=== PATIENT | female | born 1970 | race Caucasian/White ===

== ENCOUNTER 2018-12-20 11:46 | Emergency (ER) | payer OTHER ==
[~2018-12-20] VITALS: Ht 160 cm; Wt 134.7 kg
--- OUTSIDE RECORDS SUMMARY | 2018-12-20 11:49 | XMS REPORT | Clinical Summary ---
Author Author [facility] Address Unknown Phone Unavailable Care Team Providers Care [place] Production Supervisor Name Role Phone Sharpless PCP Allergies Comments Active Allergy Reactions Severity Noted Date Difficulty breathing, panic attack Droperidol Shortness Of High 07/21/2018 Breath, Other (See Comments) Penicillins Rash Low 04/27/2017 Medications End Date Status Medication Sig Dispensed Refills Start Date Active omeprazole (PRILOSEC) 20 Take 20 mg by 0 MG capsule mouth daily. Active sertraline (ZOLOFT) 100 Take 100 mg 0 MG tablet by mouth daily. Active gabapentin (NEURONTIN) Take 100 mg 0 100 MG capsule by mouth 3 (three) times daily. Active meloxicam (MOBIC) 15 MG Take 15 mg by 0 tablet mouth daily. Active cyclobenzaprine Take 5 mg by 0 (FLEXERIL) 5 MG tablet mouth 3 (three) times daily as needed for Muscle spasms. Active nebulizer accessories DISP #1 1 each 0 Misc NEBULIZER 9 WITH ADULT MASK AND TUBING. Active ibuprofen (ADVIL,MOTRIN) Take 1 tablet 20 tablet 0 600 MG tablet (600 mg 9 total) by mouth every 6 (six) hours as needed for Pain for up to 20 doses. 11/28/2019 Active albuterol (PROVENTIL) 2.5 Take 3 mLs 75 mL 0 mg /3 mL (0.083 %) (2.5 mg 9 nebulizer solution total) by nebulization every 6 (six) hours as needed for Wheezing. 07/30/2018 Discontinued traMADol (ULTRAM) 50 mg Take 1 tablet 30 tablet 0 tablet (50 mg total) 9 by mouth every 6 (six) hours as needed for up to 10 days. Max Daily Amount: 200 mg 11/28/2018 Discontinued albuterol (PROVENTIL) 2.5 Inhale 2.5 mg 0 mg /3 mL (0.083 %) by mouth via 5 nebulizer solution inhaler as needed . 07/29/2018 Discontinued albuterol HFA (PROVENTIL Inhale 2 0 HFA) 90 mcg/actuation puffs by 5 inhaler mouth via inhaler. 10/21/2018 Discontinued metFORMIN (GLUCOPHAGE-XR) TAKE 1 TABLET 1 500 MG 24 hr tablet BY MOUTH 9 TWICE A DAY04/27/18 08/09/2018 traMADol (ULTRAM) 50 mg Take 2 30 tablet 0 tablet tablets (100 9 mg total) by mouth every 6 (six) hours as needed for Pain for up to 10 days. Max Daily Amount: 400 mg 10/21/2018 Discontinued gabapentin (NEURONTIN) Take 1 90 capsule 11 300 MG capsule capsule (300 9 mg total) by mouth 3 (three) times daily. 10/24/2018 Discontinued albuterol HFA (VENTOLIN Inhale 1 puff 0 HFA) 90 mcg/actuation by mouth via inhaler inhaler every 6 (six) hours as needed for Wheezing. 12/03/2018 azithromycin (ZITHROMAX) Take 1 tablet 6 tablet 0 250 MG tablet (250 mg 9 total) by mouth daily for 5 days Take first 2 tablets together, then 1 every day until finished.. Active Problems Problem Noted Date Lung nodule 07/27/2018 Lung cancer 07/27/2018 Encounters Care Team Description Date Type Specialty Edward Trujillo MD SOB (shortness of breath) (Primary Dx); Acute chest pain; Pleural effusion on right; Morbid obesity (HCC) 11/28/2018 Emergency Emergency Medicine 11/28/2018 Orders Only General Internal Medicine 11/28/2018 Travel Salty Veronica MD UPPER ENDOSCOPY,BIOPSY 11/23/2018 Surgery Gastroenterology Karin Cai CRNA 11/23/2018 Anesthesia Gastroenterology Event Salty Veronica MD 11/23/2018 Hospital Gastroenterology Encounter Ilda Richardson MD Multiple thyroid nodules 11/21/2018 Hospital Radiology Encounter Ilda Richardson MD Multiple thyroid nodules (Primary Dx) 11/14/2018 Outside Orders Central Scheduling Resource, [employer] Preadmit Phone 10/21/2018 Hospital Pre-Admission Testing Encounter Christa Coker MD 1, [facility] [address] Room 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 Hospital Computed Tomography Encounter Christa Coker MD 1, [facility] [address] Room Carcinoid bronchial adenoma, 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 Hospital Ultrasound Encounter Christa Coker MD 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 Outside Orders Central Scheduling Suyapa Lopes MD 08/18/2018 Documentation Christa Coker MD Carcinoid bronchial adenoma, unspecified laterality (HCC) (Primary Dx) 08/16/2018 Outside Orders Central Scheduling Paolo Walls MD 07/27/2018 Anesthesia Event Ulices De Leon MD BRONCHOSCOPY 07/27/2018 Surgery Ulices De Leon MD 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 lung (HCC) 07/27/2018 Hospital Intensive Care - Encounter 07/30/2018 [facility] Phone 07/21/2018 Hospital Pre-Admission Testing Encounter Oleg Desai MD Other chest pain (Primary Dx); Lung mass 07/04/2018 Emergency Emergency Medicine 07/04/2018 Orders Only General Internal Medicine after 12/19/2017 Immunizations Name Dates Previously Given Next Due Influenza Four-QIV Non-PF 07/30/2018 5+ YR Social History Date Tobacco Use Types Packs/Day Years Used Quit: 10/08/2010 Former Smoker 11 Smokeless Tobacco: Never Used Tobacco Cessation: Counseling Given: No Comments: quit 2010 Alcohol Use Drinks/Week oz/Week Comments No Alcohol Habits Answer Date Recorded How often do you have a drink containing alcohol? Never 07/21/2018 How many drinks containing alcohol do you have on Not asked a typical day when you are drinking? How often do you have six or more drinks on one Not asked occasion? Sex Assigned at Date Recorded Not on file Industry Job Start Date Occupation Not on file Not on file Not on file Travel End Travel History Travel Start No recent travel history available. Last Filed Vital Signs Time Taken Vital Sign Reading 11/28/2018 8:16 PM CDT Blood Pressure 146/103 11/28/2018 8:16 PM CDT Pulse 94 11/28/2018 8:16 PM CDT Temperature 36.6 C (97.9 F) 11/28/2018 8:16 PM CDT Respiratory Rate 16 11/28/2018 8:16 PM CDT Oxygen Saturation 100% - Inhaled Oxygen - Concentration 11/28/2018 4:06 PM CDT Weight 134.3 kg (296 lb) 11/28/2018 4:06 PM CDT Height 160 cm (5' 3") 11/28/2018 4:06 PM CDT Body Mass Index 52.43 Plan of Treatment Care Team Description Date Type Specialty Christa Coker MD [address] [facility] [address] [place], [place] [id number] 1, [facility] [address] Room 01/26/2019 Appointment Computed Tomography Procedures Comments Procedure Name Priority Date/Time Associated Diagnosis REPORT OF PROCEDURE - 11/30/2018 ENDOSCOPY SCAN 11:[address] CHEST PE TEST DESIGN STAT 11/28/2018 7:18 PM CDT POCT-LACTIC ACID, VENOUS Routine 11/28/2018 6:46 PM CDT XR CHEST 1 VIEW STAT 11/28/2018 PORTABLE/BEDSIDE 5:34 PM CDT CBC W/PLT COUNT & AUTO STAT 11/28/2018 DIFFERENTIAL 5:24 PM CDT URINALYSIS W/ MICROSCOPIC STAT 11/28/2018 5:24 PM CDT D-DIMER STAT 11/28/2018 5:24 PM CDT TROPONIN I STAT 11/28/2018 5:24 PM CDT CBC W/PLT COUNT & AUTO STAT 11/28/2018 DIFFERENTIAL 5:24 PM CDT BASIC METABOLIC PANEL (7) STAT 11/28/2018 5:24 PM CDT ED ECG INTERPRETATION Routine 11/28/2018 4:55 PM CDT ECG 12-LEAD Routine 11/28/2018 4:03 PM CDT Procedure Note - Interface, External Ris In - 11/28/2018 10:36 PM CDT Ventricula r Rate 107 BPM Atrial Rate 107 BPM P-R Interval 166 ms QRS Duration 96 ms Q-T Interval 340 ms QTC Calculatio n(Bazett) 453 ms P [place] 28 degrees R [place] 7 degrees T [place] 34 degrees Sinus tachycardi a Cannot rule out Anterior infarct , age undetermin ed Abnormal ECG When compared with ECG of 9 23:04, No significan t change was found ECG 12-LEAD STAT 11/28/2018 4:03 PM CDT REPORT OF PROCEDURE - 11/23/2018 ENDOSCOPY URL 12:06 PM CDT REPORT OF PROCEDURE - 11/23/2018 ENDOSCOPY URL 10:34 AM CDT TISSUE EXAM AP Routine 11/23/2018 10:04 AM CDT COLONOSCOPY,POLYPECTOMY 11/23/2018 Abnormal gastrointestinal 10:00 AM CDT PET scan Helicobacter pylori gastritis UPPER ENDOSCOPY,BIOPSY 11/23/2018 Abnormal gastrointestinal 10:00 AM CDT PET scan Helicobacter pylori gastritis US FNA WITH US GUIDANCE Routine 11/21/2018 11:27 AM CDT US FNA WITH US GUIDANCE Routine 11/21/2018 Multiple thyroid nodules 11:27 AM CDT CYTOLOGY AP Routine 11/21/2018 11:16 AM CDT CYTOLOGY AP Routine 11/21/2018 11:[address] ABDOMEN/PELVIS WITH IV Routine 09/26/2018 Carcinoid tumor of lung CONTRAST 12:34 PM CDT U/S, THYROID Routine 09/26/2018 Carcinoid bronchial 12:25 PM CDT adenoma, unspecified laterality (HCC) INTRAOPERATIVE PATH 09/22/2018 REPORT - SCAN 4:20 PM CDT INTRAOPERATIVE PATH 08/15/2018 REPORT - SCAN 11:10 AM CDT RHYTHM STRIP - SCAN 08/02/2018 1:50 PM CDT XR CHEST 1 VIEW Routine 07/30/2018 PORTABLE/BEDSIDE 7:15 AM CDT CBC W/PLT COUNT & AUTO Routine 07/30/2018 DIFFERENTIAL 4:01 AM CDT MAGNESIUM Routine 07/30/2018 4:01 AM CDT BASIC METABOLIC PANEL (7) Routine 07/30/2018 4:01 AM CDT CBC W/PLT COUNT & AUTO Routine 07/30/2018 DIFFERENTIAL 4:01 AM CDT XR CHEST 1 VIEW Routine 07/29/2018 PORTABLE/BEDSIDE 4:31 AM CDT CBC W/PLT COUNT & AUTO Routine 07/29/2018 DIFFERENTIAL 3:56 AM CDT MAGNESIUM Routine 07/29/2018 3:56 AM CDT BASIC METABOLIC PANEL (7) Routine 07/29/2018 3:56 AM CDT CBC W/PLT COUNT & AUTO Routine 07/29/2018 DIFFERENTIAL 3:56 AM CDT TRANSFUSION SERVICE 07/28/2018 REPORT - SCAN 5:53 PM CDT XR CHEST 1 VIEW Routine 07/28/2018 PORTABLE/BEDSIDE 1:32 PM CDT XR CHEST 1 VIEW Routine 07/28/2018 PORTABLE/BEDSIDE 10:31 AM CDT XR CHEST 1 VIEW Routine 07/28/2018 PORTABLE/BEDSIDE 5:21 AM CDT CBC W/PLT COUNT & AUTO Routine 07/28/2018 DIFFERENTIAL 4:04 AM CDT CBC W/PLT COUNT & AUTO Routine 07/28/2018 DIFFERENTIAL 4:04 AM CDT MAGNESIUM Routine 07/28/2018 4:04 AM CDT BASIC METABOLIC PANEL (7) Routine 07/28/2018 4:04 AM CDT ECG 12-LEAD Routine 07/27/2018 11:04 PM CDT Procedure Note - Interface, External Ris In - 07/27/2018 11:09 PM CDT Ventricula r Rate 96 BPM Atrial Rate 96 BPM P-R Interval 188 ms QRS Duration 102 ms Q-T Interval 364 ms QTC Calculatio n(Bazett) 459 ms P [place] 37 degrees R [place] 5 degrees T [place] 27 degrees Normal sinus rhythm Normal ECG When compared with ECG of 10:26, No significan t change was found ECG 12-LEAD Routine 07/27/2018 11:04 PM CDT XR CHEST 1 VIEW STAT 07/27/2018 PORTABLE/BEDSIDE 9:19 PM CDT PT/APTT STAT 07/27/2018 8:49 PM CDT CALCIUM, IONIZED STAT 07/27/2018 8:48 PM CDT MAGNESIUM STAT 07/27/2018 8:48 PM CDT PHOSPHORUS STAT 07/27/2018 8:48 PM CDT BASIC METABOLIC PANEL (7) STAT 07/27/2018 8:48 PM CDT CBC (HEMOGRAM ONLY) STAT 07/27/2018 8:48 PM CDT TISSUE EXAM AP Routine 07/27/2018 4:05 PM CDT HGB/HCT (H&H) - STAT LAB STAT 07/27/2018 3:42 PM CDT GLUCOSE-STAT LAB STAT 07/27/2018 3:42 PM CDT POTASSIUM-STAT LAB STAT 07/27/2018 3:42 PM CDT SODIUM NA-STAT LAB STAT 07/27/2018 3:42 PM CDT BLOOD GAS, ARTERIAL STAT 07/27/2018 3:42 PM CDT CALCIUM, IONIZED STAT 07/27/2018 3:42 PM CDT RRL CRITICAL LABS STAT 07/27/2018 (ABG,NA,K,H&H,GLUCOSE) 3:42 PM CDT ANESTHESIA PERIPHERAL Routine 07/27/2018 BLOCK 3:28 PM CDT PROCEDURE W/ DAVINCI XI 07/27/2018 Lung nodule 12:45 PM CDT Case Notes 3 HOURS Special Needs (DAVINCI XI) ROBOTIC THORACOSCOPY 07/27/2018 Lung nodule (VATS),LOBECTOMY W/ LYMPH 12:45 PM CDT NODE RESECTION Case Notes 3 HOURS Special Needs (DAVINCI XI) BRONCHOSCOPY 07/27/2018 Lung nodule 12:45 PM CDT Case Notes 3 HOURS Special Needs (DAVINCI XI) ABORH, MANUAL STAT 07/27/2018 10:03 AM CDT CBC W/PLT COUNT & AUTO Routine 07/27/2018 DIFFERENTIAL 9:45 AM CDT TYPE AND SCREEN, Routine 07/27/2018 AUTOMATED 9:45 AM CDT PROTHROMBIN TIME/INR Routine 07/27/2018 9:45 AM CDT APTT Routine 07/27/2018 9:45 AM CDT COMPREHENSIVE METABOLIC Routine 07/27/2018 PANEL 9:45 AM CDT CBC W/PLT COUNT & AUTO Routine 07/27/2018 DIFFERENTIAL 9:45 AM CDT POCT , URINE Routine 07/27/2018 9:36 AM CDT REPORT OF PROCEDURE - 07/06/2018 ENDOSCOPY SCAN 12:42 PM SENIOR BENEFITS SPECIALIST CT CHEST PE TEST DESIGN STAT 07/04/2018 5:39 PM SENIOR BENEFITS SPECIALIST URINALYSIS MICROSCOPIC Routine 07/04/2018 1:55 PM SENIOR BENEFITS SPECIALIST URINALYSIS WITH STAT 07/04/2018 MICROSCOPIC IF INDICATED 1:55 PM SENIOR BENEFITS SPECIALIST SCREEN, URINE STAT 07/04/2018 1:55 PM SENIOR BENEFITS SPECIALIST XR CHEST 1 VIEW STAT 07/04/2018 PORTABLE/BEDSIDE 12:23 PM SENIOR BENEFITS SPECIALIST ED ECG INTERPRETATION Routine 07/04/2018 12:16 PM SENIOR BENEFITS SPECIALIST CBC W/PLT COUNT & AUTO STAT 07/04/2018 DIFFERENTIAL 11:33 AM SENIOR BENEFITS SPECIALIST MAGNESIUM STAT 07/04/2018 11:33 AM SENIOR BENEFITS SPECIALIST B-TYPE NATRIURETIC FACTOR STAT 07/04/2018 (BNP) 11:33 AM SENIOR BENEFITS SPECIALIST LIPASE STAT 07/04/2018 11:33 AM SENIOR BENEFITS SPECIALIST TROPONIN I STAT 07/04/2018 11:33 AM SENIOR BENEFITS SPECIALIST COMPREHENSIVE METABOLIC STAT 07/04/2018 PANEL 11:33 AM SENIOR BENEFITS SPECIALIST CBC W/PLT COUNT & AUTO STAT 07/04/2018 DIFFERENTIAL 11:33 AM SENIOR BENEFITS SPECIALIST ECG 12-LEAD Routine 07/04/2018 10:26 AM SENIOR BENEFITS SPECIALIST Procedure Note - Interface, External Ris In - 07/04/2018 4:14 PM SENIOR BENEFITS SPECIALIST Ventricula r Rate 86 BPM Atrial Rate 86 BPM P-R Interval 176 ms QRS Duration 102 ms Q-T Interval 372 ms QTC Calculatio n(Bazett) 445 ms P [place] 29 degrees R [place] 12 degrees T [place] 29 degrees Normal sinus rhythm Cannot rule out Anterior infarct , age undetermin ed Abnormal ECG No previous ECGs available ECG 12-LEAD STAT 07/04/2018 10:26 AM SENIOR BENEFITS SPECIALIST after 12/19/2017 Results * EKG-SCANNED (11/30/2018 11:31 AM CDT) Only the most recent of 2 results within the time period is included. Narrative Performed At * CT chest PE test design (11/28/2018 7:18 PM CDT) Only the most recent of 2 results within the time period is included. Specimen Narrative Performed At FINAL REPORT [facility] CT Chest PE Protocol dated 11/28/2018 Clinical information: Dyspnea, cardiac origin suspected Shortness of breath SHORTNESS OF BREATH CHEST PAIN Technique: This exam was performed according to our departmental dose-optimization program, which includes automated exposure control, adjustment of the mA and/or kV according to patient size and/or use of interactive reconstruction technique. Precontrast axial images were obtained at pulmonary trunk level for the purpose of monitoring subsequent IV contrast. Postcontrast axial images of the chest were obtained from above the arch level to the lower chest at maximum enhancement of pulmonary artery. Delayed axial images of the entire chest were obtained subsequently. Coronal and sagittal reformations of the pulmonary arteries were performed. Comment: Heart is normal in size. Greater vessels are unremarkable. No filling detect is noted in the pulmonary trunk or pulmonary arteries. No adenopathy is noted in the mediastinum or perihilar region. Trachea and mainstem bronchi are patent. Small right pleural effusion is present with the right lower lobe subsegmental atelectasis. The rest of the lungs are clear. Impression: 1. No pulmonary thromboembolism. 2. Small right pleural effusion. Signed: Ilda Peralta MD Report Verified Date/Time:11/28/2018 20:03:42 Reading Location: [address] Consult Reading Room Procedure Note Interface, External Ris In - 11/28/2018 8:05 PM CDT FINAL REPORT CT Chest PE Protocol dated 11/28/2018 Clinical information: Dyspnea, cardiac origin suspected Shortness of breath SHORTNESS OF BREATH CHEST PAIN Technique: This exam was performed according to our departmental dose-optimization program, which includes automated exposure control, adjustment of the mA and/or kV according to patient size and/or use of interactive reconstruction technique. Precontrast axial images were obtained at pulmonary trunk level for the purpose of monitoring subsequent IV contrast. Postcontrast axial images of the chest were obtained from above the arch level to the lower chest at maximum enhancement of pulmonary artery. Delayed axial images of the entire chest were obtained subsequently. Coronal and sagittal reformations of the pulmonary arteries were performed. Comment: Heart is normal in size. Greater vessels are unremarkable. No filling detect is noted in the pulmonary trunk or pulmonary arteries. No adenopathy is noted in the mediastinum or perihilar region. Trachea and mainstem bronchi are patent. Small right pleural effusion is present with the right lower lobe subsegmental atelectasis. The rest of the lungs are clear. Impression: 1. No pulmonary thromboembolism. 2. Small right pleural effusion. Signed: Ilda Peralta MD Report Verified Date/Time: 11/28/2018 20:03:42 Reading Location: [address] Consult Reading Room Performing Organization Address City/State/Zipcode Phone Number [facility] * POC-Lactic Acid, Venous (11/28/2018 6:46 PM CDT) POC-Lactic Acid, Venous 1.0Comment: TESTED AT [facility] 0.9 - 1.7 mmol/L [address] Specimen Blood Performing Organization Address City/[facility] [place] [address] [facility] * XR chest 1 view portable / bedside (11/28/2018 5:34 PM CDT) Only the most recent of 8 results within the time period is included. Specimen Narrative Performed At FINAL REPORT [facility] AP view of the chest dated 11/28/2018 CLINICAL INFORMATION: SHORTNESS OF BREATH CHEST PAIN Comment:Heart is in upper limits of normal in size. Pulmonary vasculature is unremarkable. Lungs are clear. No pulmonary infiltrate or pleural effusion is present. Impression:No active cardiopulmonary disease. Signed: Ilda Peralta MD Report Verified Date/Time:11/28/2018 19:00:15 Reading Location: [address] Consult Reading Room Procedure Note Interface, External Ris In - 11/28/2018 7:02 PM CDT FINAL REPORT AP view of the chest dated 11/28/2018 CLINICAL INFORMATION: SHORTNESS OF BREATH CHEST PAIN Comment: Heart is in upper limits of normal in size. Pulmonary vasculature is unremarkable. Lungs are clear. No pulmonary infiltrate or pleural effusion is present. Impression: No active cardiopulmonary disease. Signed: Ilda Peralta MD Report Verified Date/Time: 11/28/2018 19:00:15 Reading Location: [address] Consult Reading Room Performing Organization Address City/State/Zipcode Phone Number [facility] * CBC with platelet count + automated diff (11/28/2018 5:24 PM CDT) Only the most recent of 6 results within the time period is included. WBC 5.2 3.5 - 10.5 K/L [facility] RBC 4.63 3.93 - 5.22 M/L [facility] Hemoglobin 12.8 11.2 - 15.7 GM/DL [facility] Hematocrit 39.7 34.1 - 44.9 % [facility] MCV 85.7 79.4 - 94.8 fL [facility] MCH 27.6 25.6 - 32.2 pg [facility] MCHC 32.2 32.2 - 35.5 GM/DL [facility] RDW 14.5 (H) 11.7 - 14.4 % [facility] Platelets 200 150 - 450 K/CU MM [facility] MPV 10.2 9.4 - 12.3 fL [facility] nRBC 0 0 - 0 /100 WBC [facility] % Neutros 63 % [facility] % Lymphs 29 % [facility] % Monos 7 % [facility] % Eos 2 % [facility] % Baso 0 % [facility] # Neutros 3.22 1.56 - 6.13 K/L [facility] # Lymphs 1.48 1.18 - 3.74 K/L [facility] # Monos 0.34 0.24 - 0.36 K/L [facility] # Eos 0.08 0.04 - 0.36 K/L [facility] # Baso 0.01 0.01 - 0.08 K/L [facility] Immature 0 0 - 1 % [facility] Granulocytes-Relative [facility] Specimen Blood Performing Organization Address City/[facility]/Zipcode Phone Number [address] [phone] [facility] * Troponin I (11/28/2018 5:24 PM CDT) Only the most recent of 2 results within the time period is included. Troponin I <0.01 0.00 - 0.03 ng/mL [facility] Specimen Blood Narrative Performed At Troponin I (TnI) levels must be interpreted in the context of the presenting [facility] symptoms and the clinical findings. Elevated TnI levels indicate myocardial [facility] damage, but are not specific for ischemic heart disease. Elevated TnI levels are seen in patients with other cardiac conditions (including myocarditis and congestive heart failure), and slight TnI elevations occur in patients with other conditions, including sepsis, renal failure, acidosis, acute neurological disease, and persistent tachyarrhythmia. Performing Organization Address [facility] Phone Number [address] [address] [facility] * Urinalysis w/Microscopic (11/28/2018 5:24 PM CDT) Color, UA Light Yellow [facility] Clarity, UA Hazy [facility] Specific [place], UA 1.007 1.001 - 1.035 [facility] pH, UA 7.0 5.0 - 8.0 [facility] Protein, UA Negative Negative [facility] Glucose, UA Negative Negative [facility] Ketones, UA Negative Negative [facility] Bilirubin, UA Negative Negative [facility] Blood, UA Negative Negative [facility] Nitrite, UA Negative Negative [facility] Leukocytes, UA Trace (A) Negative [facility] Urobilinogen, UA 0.2 0.2 - 1.0 mg/dL [facility] RBC, UA <1 /HPF [facility] WBC, UA 3 /HPF [facility] Bacteria, UA Occasional [facility] Squam Epithel, UA 23 /HPF [facility] Specimen Source Urine, Clean Catch [facility] Specimen Urine Performing Organization Address [facility] [place] [address] [facility] * D-dimer, quantitative (11/28/2018 5:24 PM CDT) D-Dimer, Quant 0.63 (H) <0.50 MG/L FEU [facility] Specimen Blood Narrative Performed At Intended Use: The D-Dimer Assay can be used to aid in the diagnosis of Deep Vein [facility] Thrombosis (DVT) and Pulmonary Embolism Disease (PED). [facility] In patients with low pre-test probability, various studies concerning STA Liatest D-dimer test have reported that with a cutoff value of 0.50 MG/L FEU, the Negative Predictive Value (NPV) regarding the exclusion of thrombosis is within 95-100% range. Performing Organization Address City/[facility] Phone Number [address] [address] [facility] * Basic Metabolic Panel (11/28/2018 5:24 PM CDT) Only the most recent of 5 results within the time period is included. Sodium 140 136 - 145 meq/L [facility] Potassium 4.3Comment: Specimen 3.5 - 5.1 meq/L [facility] moderately hemolyzed [facility] Chloride 107 98 - 107 meq/L [facility] CO2 25 22 - 29 meq/L [facility] BUN 8 7 - 21 mg/dL [facility] Creatinine 0.94Comment: Specimen 0.57 - 1.25 mg/dL [facility] moderately hemolyzed [facility] Glucose 93 70 - 105 mg/dL [facility] Calcium 9.1 8.4 - 10.2 mg/dL [facility] EGFR 64Comment: ESTIMATED GFR IS mL/min/1.73 sq m [facility] NOT ACCURATE CREATININE [facility] CLEARANCE IN PREDICTING GLOMERULAR FILTRATION RATE. ESTIMATED GFR IS NOT APPLICABLE FOR DIALYSIS PATIENTS. Specimen Blood Performing Organization Address City/State/Zipcode Phone Number [facility] [address] [place] [address] [facility] * ECG/EKG Interpretation (11/28/2018 4:55 PM CDT) Only the most recent of 2 results within the time period is included. Narrative Performed At Edawrd Trujillo MD 11/28/2018 10:35 PM ECG/EKG Interpretation Date/Time: 11/28/2018 4:57 PM Performed by: Edward Trujillo MD Authorized by: Edward Trujillo MD The ECG was interpreted by ED physician. The ECG is interpreted as sinus tachycardia. Heart rate is 99 BPM. Patient tolerance: Patient tolerated the procedure well with no immediate complications Comments: Sinus tachycardia on monitor * ECG 12 lead (11/28/2018 4:03 PM CDT) Only the most recent of 3 results within the time period is included. Specimen Narrative Performed At Ventricular Rate 107 BPM [facility] Atrial Rate 107 BPM P-R Interval 166 ms QRS Duration 96 ms Q-T Interval 340 ms QTC Calculation(Bazett) 453 ms P [place] 28 degrees R [place] 7 degrees T [place] 34 degrees Sinus tachycardia Cannot rule out Anterior [email or web address] Jun 2018 Abnormal ECG When compared with ECG of 27-JUL-2018 23:04, No significant change was found Confirmed by MD JENNY, VALDEMAR ([id number]) on 11/29/2018 6:56:13 AM Procedure Note Interface, External Ris In - 11/29/2018 6:56 AM CDT Ventricular Rate 107 BPM Atrial Rate 107 BPM P-R Interval 166 ms QRS Duration 96 ms Q-T Interval 340 ms QTC Calculation(Bazett) 453 ms P [place] 28 degrees R [place] 7 degrees T [place] 34 degrees Sinus tachycardia Cannot rule out Anterior infarct 04 Jul 2018 Abnormal ECG When compared with ECG of 27-JUL-2018 23:04, No significant change was found Confirmed by MD JENNY, VALDEMAR ([id number]) on 11/29/2018 6:56:13 AM Performing Organization Address City/State/Zipcode Phone Number GE MUSE * REPORT OF PROCEDURE - ENDOSCOPY URL (11/23/2018 12:06 PM CDT) Narrative Performed At * REPORT OF PROCEDURE - ENDOSCOPY URL (11/23/2018 10:34 AM CDT) Narrative Performed At * Tissue Exam (11/23/2018 10:04 AM CDT) Only the most recent of 2 results within the time period is included. Case Report Surgical Pathology [facility] Report [facility] Case: [id number] Authorizing Provider:Salty Veronica MDCollected: 11/23/2018 1004 Ordering Location: [facility] Endoscopy Received: 11/23/2018 1127 Services Pathologist: Katia Covarrubias MD Specimens: A) - Biopsy, Gastric, bx r/o H pylori B) - Polyp, Colon - Right/Ascending, polyp taken by frcp C) - Polyp, Colon - Rectum, polyp taken by frcp DIAGNOSIS A. STOMACH, RANDOM BIOPSIES: [facility] - ANTRAL MUCOSA WITH [facility] REACTIVE GASTROPATHY - BODY MUCOSA WITH PROTON PUMP INHIBITOR THERAPY EFFECT - NEGATIVE FOR HELICOBACTER PYLORI ORGANISMS BY WARTHIN STARRY STAIN - NEGATIVE FOR INTESTINAL METAPLASIA, DYSPLASIA, MALIGNANCY B. COLON, RIGHT/ASCENDING POLYP, BIOPSY: - TUBULAR ADENOMA C. RECTUM, POLYP, BIOPSY: - HYPERPLASTIC POLYP Signing Pathologist Direct Phone Line: [phone] CPT Code(s) 37596H4 [facility] [address] [facility] CLINICAL HISTORY Pre and postop diagnosis: [facility] abnormal gastrointestinal PET [facility] scan, Helicobacter pylori gastritis SPECIMEN SOURCE A. Biopsy, gastric, rule out [facility] H. Pylori; B. Polyp, colon - [facility] right/ascending; C. Polyp, colon - rectum GROSS DESCRIPTION A. Received in formalin [facility] labeled with the patient's [facility] name, accession number and "biopsy, gastric" are two irregular howard soft tissue fragments measuring 0.7 cm and 0.4 cm which are submitted in toto in A1. B. Received in formalin labeled with the patient's name, accession number and "polyp, colon - right/ascending" is a 0.4 cm an polyp which is submitted in toto in B1. C. Received in formalin labeled with the patient's name, accession number and "polyp, colon - rectum" are two irregular howard soft tissue fragments each measuring 0.2 cm which are submitted in toto in C1. CG/pl MICROSCOPIC DESCRIPTION Performed. [facility] SPECIAL STUDIES The interpretation of this [facility] case included the use of [facility] immunohistochemistry or special stains. Control Slides Examined: In-house known positive controls were evaluated along with the test tissue. These control slides run alongside of the patients sample show appropriate staining. Internal positive and negative controls when available are evaluated Immunohistochemistry technical testing was performed at [facility], Pathology Laboratory where it was developed and its performance characteristics were determined. It has not been cleared or approved by the U.S. Food and Drug Administration. The FDA has determined that such clearance or approval is not necessary. The test is used for clinical purposes. It should not be regarded as investigational or for research. This laboratory is certified under the Clinical Laboratory Improvement Amendments of 1988 (CLIA-88) as qualified to perform high complexity clinical laboratory testing. Specimen Tissue Tissue - Polyp, Colon - Right/Ascending Tissue - Polyp, Colon - Rectum Performing Organization Address City/State/Zipcode Phone Number [facility] [address] [place] [address] [facility] * US FNA with US guidance (11/21/2018 11:27 AM CDT) Only the most recent of 2 results within the time period is included. Specimen Narrative Performed At FINAL REPORT [facility] History: Multiple thyroid nodules. PROCEDURE: Following informed written consent and limited sonographic examination of the thyroid gland, the patient's cervical region was prepped and draped in the usual sterile manner. 2% lidocaine was given locally for anesthesia. No conscious sedation was administered. Using ultrasound guidance, an anterior approach and 22-gauge needles, a total of three fine needle aspirates were obtained from each of the patient's dominant right and left thyroid nodules described in detail below. All samples were submitted to pathology for evaluation. Overall, the patient tolerated the procedure well without immediate complications and was discharged from the department in stable condition. FINDINGS: Limited sonographic examination of the thyroid gland performed prior to the procedure demonstrates a large 4.2 x 2.1 x 2.4 cm solid nodule in the right thyroid lobe. There is also a 1.7 x 1.2 x 1.4 cm solid nodule in the left thyroid lobe. During the aspirates, the needle tips are noted within each of these lesions. IMPRESSION: 1. Successful uncomplicated ultrasound-guided aspiration of the patient's dominant right and left thyroid nodules as described in detail above. Signed: Kevin Vega MD Report Verified Date/Time:11/21/2018 19:05:24 Reading Location: [address] Body Reading Room Procedure Note Interface, External Ris In - 11/21/2018 7:07 PM CDT FINAL REPORT History: Multiple thyroid nodules. PROCEDURE: Following informed written consent and limited sonographic examination of the thyroid gland, the patient's cervical region was prepped and draped in the usual sterile manner. 2% lidocaine was given locally for anesthesia. No conscious sedation was administered. Using ultrasound guidance, an anterior approach and 22-gauge needles, a total of three fine needle aspirates were obtained from each of the patient's dominant right and left thyroid nodules described in detail below. All samples were submitted to pathology for evaluation. Overall, the patient tolerated the procedure well without immediate complications and was discharged from the department in stable condition. FINDINGS: Limited sonographic examination of the thyroid gland performed prior to the procedure demonstrates a large 4.2 x 2.1 x 2.4 cm solid nodule in the right thyroid lobe. There is also a 1.7 x 1.2 x 1.4 cm solid nodule in the left thyroid lobe. During the aspirates, the needle tips are noted within each of these lesions. IMPRESSION: 1. Successful uncomplicated ultrasound-guided aspiration of the patient's dominant right and left thyroid nodules as described in detail above. Signed: Kevin Vega MD Report Verified Date/Time: 11/21/2018 19:05:24 Reading Location: [facility] P048 Angio Body Reading Room Performing Organization Address City/State/Zipcode Phone Number GE RIS * Cytology (11/21/2018 11:16 AM CDT) Only the most recent of 2 results within the time period is included. Case Report Medical Cytology [facility] Report [facility] Case: [id number] Authorizing Provider:Ilda Richardson, Collected: 11/21/2018 1116 Ordering Location: [facility] Radiology Main Received: 11/21/2018 8183 Pathologist: Santana Preston MD Specimen:Thyroid, Right DIAGNOSIS THYROID GLAND, RIGHT LOBE [facility] NODULE, FNA BY CLINICIAN [facility] (CYTOSPINS AND CELL BLOCK OF ASPIRATE): - SATISFACTORY FOR EVALUATION - DIAGNOSTIC CATEGORY: BENIGN - CONSISTENT WITH BENIGN FOLLICULAR NODULE WITH CYSTIC CHANGES - SEE COMMENT Signing Pathologist Direct Phone Line: [phone] COMMENT Clinical and radiographic [facility] correlation is recommended. [facility] Please also see cytopathology case [id number] CPT Code(s) 70868, 23429 [facility] CLINICAL DATA (4.2 X 2.1 X 2.4 cm) Enlarged [facility] right thyroid nodule [facility] SPECIMEN SOURCE RIGHT LOBE THYROID GLAND [facility] NODULE FNA [facility] GROSS DESCRIPTION 30 mls in cytorich red; 4 [facility] cytospins, cell block [facility] (collodion bag) Collected: [id number] Received: 304209 Gross assessment was [facility] performed at [place], Department of [facility] Pathology, [address] [place] [address], [place] [address], Technical component was [facility] performed at Center, Department of [facility] Pathology, [address] [facility], [place] [address], Professional component [facility] was performed at [place], Department of [facility] Pathology, [address] [place] [address], Specimen Fine Needle Aspirate - Thyroid, Right Narrative Performed At Performing Organization Address City/State/Zipcode Phone Number [facility] [address] [place], [place] [id number] MEDICAL CENTER * CT Abdomen/Pelvis with IV Contrast (09/26/2018 12:34 PM CDT) Specimen Narrative Performed At FINAL REPORT [facility] EXAM: CT Abdomen and Pelvis WITH contrast 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 Coronal and sagittal reformations were obtained. Dose modulation, iterative reconstruction, and/or weight based adjustment of the mA/kV was utilized to reduce the radiation dose to as low as reasonably achievable. Routine protocol was performed. Scan was performed when during portal venous phase. IV CONTRAST: 100 mL of Isovue-300 ORAL CONTRAST: None. COMPLICATIONS: None RADIATION DOSE: Total DLP: 1512.54 mGy*cm Estimated effective dose: (DLP x 0.015 x size factor) mSv CTDIvol has been reviewed. It is below the limits set by the Radiation Protocol Committee (RPC). FINDINGS: LINES and TUBES: None. LOWER THORAX:Small right pleural effusion, new from prior exam. Suture line is seen in the right middle lobe. Enlarged main pulmonary artery measuring 3.6 cm. HEPATOBILIARY:No focal hepatic lesions. No biliary ductal dilation. GALLBLADDER: Surgically absent. SPLEEN: Splenomegaly measuring 14 cm. PANCREAS: No focal masses or ductal dilatation. ADRENALS: No adrenal nodules KIDNEYS/URETERS: Kidneys enhance symmetrically.No hydronephrosis. Hypodense lesion in the right renal superior pole measures 2.2 x 2 cm. No other renal lesions visualized.No stones. GI TRACT: No abnormal distention, wall thickening, or evidence of bowel obstruction. Appendix is normal. PELVIC ORGANS/BLADDER: Unremarkable. LYMPH NODES: No lymphadenopathy. VESSELS: Unremarkable. PERITONEUM / RETROPERITONEUM: No free air or fluid. BONES: Mild T12 vertebral body anterior wedging. Otherwise, unremarkable. SOFT TISSUES: Small fat-containing periumbilical hernia. IMPRESSION: 1.No evidence of metastatic disease in the abdomen/pelvis. 2.No acute inflammatory process in the abdomen/pelvis. 3.Small right pleural effusion. 4.Hypodense right renal superior pole lesion with internal density of greater than simple fluid, could represent a complex hemorrhagic/proteinaceous cyst. Recommend renal ultrasound for further evaluation. 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 Coronal and sagittal reformations were obtained. Dose modulation, iterative reconstruction, and/or weight based adjustment of the mA/kV was utilized to reduce the radiation dose to as low as reasonably achievable. Routine protocol was performed. Scan was performed when during portal venous phase. IV CONTRAST: 100 mL of Isovue-300 ORAL CONTRAST: None. COMPLICATIONS: None RADIATION DOSE: Total DLP: 1512.54 mGy*cm Estimated effective dose: (DLP x 0.015 x size factor) mSv CTDIvol has been reviewed. It is below the limits set by the Radiation Protocol Committee (RPC). FINDINGS: LINES and TUBES: None. LOWER THORAX: Small right pleural effusion, new from prior exam. Suture line is seen in the right middle lobe. Enlarged main pulmonary artery measuring 3.6 cm. HEPATOBILIARY: No focal hepatic lesions. No biliary ductal dilation. GALLBLADDER: Surgically absent. SPLEEN: Splenomegaly measuring 14 cm. PANCREAS: No focal masses or ductal dilatation. ADRENALS: No adrenal nodules KIDNEYS/URETERS: Kidneys enhance symmetrically. No hydronephrosis. Hypodense lesion in the right renal superior pole measures 2.2 x 2 cm. No other renal lesions visualized. No stones. GI TRACT: No abnormal distention, wall thickening, or evidence of bowel obstruction. Appendix is normal. PELVIC ORGANS/BLADDER: Unremarkable. LYMPH NODES: No lymphadenopathy. VESSELS: Unremarkable. PERITONEUM / RETROPERITONEUM: No free air or fluid. BONES: Mild T12 vertebral body anterior wedging. Otherwise, unremarkable. SOFT TISSUES: Small fat-containing periumbilical hernia. IMPRESSION: 1.No evidence of metastatic disease in the abdomen/pelvis. 2.No acute inflammatory process in the abdomen/pelvis. 3.Small right pleural effusion. 4.Hypodense right renal superior pole lesion with internal density of greater than simple fluid, could represent a complex hemorrhagic/proteinaceous cyst. Recommend renal ultrasound for further evaluation. Signed: Jeremy Garcia MD Report Verified Date/Time: 09/28/2018 11:05:53 Reading Location: [facility] Reading Room [address] [place] [address] Performing Organization Address City/State/Zipcode Phone Number [facility] * US Thyroid (09/26/2018 12:25 PM CDT) Specimen Narrative Performed At FINAL REPORT [facility] EXAM: Thyroid Ultrasound INDICATION:C7A.090 COMPARISON: None TECHNIQUE: Transverse and sagittal images were obtained of the thyroid gland. FINDINGS: Thyroid gland: Size: Right lobe: 4.6 x 2.5 x 2.9 cm, Normalin size Left lobe: 5.1 x 1.7 x 2 cm, Normalin size Isthmus: 0.5 cm, Normal in size Appearance: Heterogeneous echotexture without increased vascularity Masses/Nodules: Right lobe: 3.9 x 2.1 x 2.2 cm solid (2 pts) nodule in the interpolar region with smooth margin (0 pts), naikm-asyj-obhy (0 pts), isoechoic (1 pt), and no calcifications (0 pts).TR3c (>2.5 cm), Mildly Suspicious: FNA. Left lobe: 2.1 x 1.2 x 1.6 cm almost completely solid (2 pts) nodule in the superior pole with smooth margin (0 pts), ymrkl-mfqc-yait (0 pts), hypoechoic (2 pts), and no calcifications (0 pts). TR4c (>1.5 cm), Moderately Suspicious: FNA. Parathyroid: No focal parathyroid masses. IMPRESSION: Right and left thyroid nodules, both meet the criteria for fine-needle aspiration. TI-RADS Lexicon: TR1, Benign: No FNA TR2, Not Suspicious: No FNA. TR3a (<1.5 cm): No follow-up. TR3b (1.5-2.5 cm), Mildly Suspicious: Follow at 1, 3, 5 years. TR3c (>2.5 cm), Mildly Suspicious: FNA. TR4a (<1.0 cm): No follow-up. TR4b (1.0-1.5 cm), Moderately Suspicious: Follow at 1, 2, 3, 5 years. TR4c (>1.5 cm), Moderately Suspicious: FNA. TR5a (<0.5 cm): No follow-up. TR5b (0.5-1.0 cm), Highly Suspicious: Follow at 1, 2, 3, 4, 5 years. TR5c (>1.0 cm), Highly Suspicious: FNA. *Rebiopsy if new suspicious features *No recommendation at this time for significant interval growth. Nodule Characteristics: *Benign features: cystic, hyperechoic, comet-tail artifact, complete halo *Minor suspicious features: solid, hypoechoic, other calcifications *Major suspicious features: microcalcifications, marked hypoechoic (less than strap muscle), suspicious lymph nodes, taller than wide, lobulated or ill-defined margins. Literature: ACR Thyroid Imaging, Reporting and Data System (TI-RADS): White Paper of the ACR TI-RADS Committee. J Am Juan Diego Radiol 2017. Signed: Jeremy Garcia MD Report Verified Date/Time:09/28/2018 10:46:57 Reading Location: [facility] Reading Room [address] [place] [address] Procedure Note Interface, External Ris In - 09/28/2018 10:49 AM CDT FINAL REPORT EXAM: Thyroid Ultrasound INDICATION: C7A.090 COMPARISON: None TECHNIQUE: Transverse and sagittal images were obtained of the thyroid gland. FINDINGS: Thyroid gland: Size: Right lobe: 4.6 x 2.5 x 2.9 cm, Normal in size Left lobe: 5.1 x 1.7 x 2 cm, Normal in size Isthmus: 0.5 cm, Normal in size Appearance: Heterogeneous echotexture without increased vascularity Masses/Nodules: Right lobe: 3.9 x 2.1 x 2.2 cm solid (2 pts) nodule in the interpolar region with smooth margin (0 pts), ftaqu-deno-bsax (0 pts), isoechoic (1 pt), and no calcifications (0 pts). TR3c (>2.5 cm), Mildly Suspicious: FNA. Left lobe: 2.1 x 1.2 x 1.6 cm almost completely solid (2 pts) nodule in the superior pole with smooth margin (0 pts), yeweh-pafy-nwyi (0 pts), hypoechoic (2 pts), and no calcifications (0 pts). TR4c (>1.5 cm), Moderately Suspicious: FNA. Parathyroid: No focal parathyroid masses. IMPRESSION: Right and left thyroid nodules, both meet the criteria for fine-needle aspiration. TI-RADS Lexicon: TR1, Benign: No FNA TR2, Not Suspicious: No FNA. TR3a (<1.5 cm): No follow-up. TR3b (1.5-2.5 cm), Mildly Suspicious: Follow at 1, 3, 5 years. TR3c (>2.5 cm), Mildly Suspicious: FNA. TR4a (<1.0 cm): No follow-up. TR4b (1.0-1.5 cm), Moderately Suspicious: Follow at 1, 2, 3, 5 years. TR4c (>1.5 cm), Moderately Suspicious: FNA. TR5a (<0.5 cm): No follow-up. TR5b (0.5-1.0 cm), Highly Suspicious: Follow at 1, 2, 3, 4, 5 years. TR5c (>1.0 cm), Highly Suspicious: FNA. *Rebiopsy if new suspicious features *No recommendation at this time for significant interval growth. Nodule Characteristics: *Benign features: cystic, hyperechoic, comet-tail artifact, complete halo *Minor suspicious features: solid, hypoechoic, other calcifications *Major suspicious features: microcalcifications, marked hypoechoic (less than strap muscle), suspicious lymph nodes, taller than wide, lobulated or ill-defined margins. Literature: ACR Thyroid Imaging, Reporting and Data System (TI-RADS): White Paper of the ACR TI-RADS Committee. J Am Juan Diego Radiol 2017. Signed: Jeremy Garcia MD Report Verified Date/Time: 09/28/2018 10:46:57 Reading Location: [facility] Reading Room [address] [place] [address] Performing Organization Address City/State/Zipcode Phone Number [facility] * INTRAOPERATIVE PATH REPORT - SCAN (09/22/2018 4:20 PM CDT) Only the most recent of 2 results within the time period is included. Narrative Performed At * RHYTHM STRIP - SCAN (08/02/2018 1:50 PM CDT) Narrative Performed At * Magnesium (07/30/2018 4:01 AM CDT) Only the most recent of 5 results within the time period is included. Magnesium 2.0 1.6 - 2.6 mg/dL [facility] Specimen Blood Performing Organization Address City/[facility]/Zipcode Phone Number [facility] [address] [place] [address] MEDICAL CENTER * TRANSFUSION SERVICE REPORT - SCAN (07/28/2018 5:53 PM CDT) Narrative Performed At * PT/aPTT (07/27/2018 8:49 PM CDT) Protime 12.7 11.7 - 14.7 seconds [facility] INR 0.9 <=5.9 [facility] PTT 24.1 22.5 - 36.0 seconds [facility] Specimen Blood Narrative Performed At RECOMMENDED COUMADIN/WARFARIN INR THERAPY RANGES [facility] STANDARD DOSE: 2.0 - 3.0 Includes: PROPHYLAXIS for venous thrombosis, [facility] systemic embolization; TREATMENT for venous thrombosis and/or pulmonary embolus. HIGH RISK: Target INR is 2.5-3.5 for patients with mechanical heart valves. Performing Organization Address City/State/Zipcode Phone Number [facility] [address] [place] [address] [facility] * Calcium, Ionized (07/27/2018 8:48 PM CDT) Only the most recent of 2 results within the time period is included. Calcium, Ion 1.17 1.12 - 1.27 mmol/L [facility] pH, Blood 7.23 [facility] Specimen Blood Performing Organization Address City/[facility] Phone Number [facility] [address] [place] [address] [phone] [place] [address] * CBC (Hemogram only) (07/27/2018 8:48 PM CDT) WBC 15.2 (H) 3.5 - 10.5 K/L [facility] RBC 5.02 3.93 - 5.22 M/L [facility] Hemoglobin 14.3 11.2 - 15.7 GM/DL [facility] Hematocrit 45.2 (H) 34.1 - 44.9 % [facility] MCV 90.0 79.4 - 94.8 fL [facility] MCH 28.5 25.6 - 32.2 pg [facility] MCHC 31.6 (L) 32.2 - 35.5 GM/DL [facility] RDW 14.7 (H) 11.7 - 14.4 % [facility] Platelets 225 150 - 450 K/CU MM [facility] MPV 9.6 9.4 - 12.3 fL [facility] nRBC 0 0 - 0 /100 WBC [facility] Specimen Blood Performing Organization Address City/State/Zipcode Phone Number [facility] [phone] [place] [address] * Phosphorus (07/27/2018 8:48 PM CDT) Phosphorus 4.4 2.3 - 4.7 mg/dL [facility] Specimen Blood Performing Organization Address City/[facility] Phone Number [address] * Potassium-Stat Lab (07/27/2018 3:42 PM CDT) Potassium 4.0 3.6 - 5.5 meq/L [facility] Specimen Blood, Arterial Performing Organization Address [facility] Phone Number [address] * Sodium Na-Stat Lab (07/27/2018 3:42 PM CDT) Sodium 139 135 - 148 meq/L [facility] Specimen Blood, Arterial Performing Organization Address City/[facility] Phone Number [address] * Glucose-Stat Lab (07/27/2018 3:42 PM CDT) Glucose 104 70 - 110 mg/dL [facility] Specimen Blood, Arterial Performing Organization Address City/[facility] Phone Number [address] * HGB/HCT (H&H)-Stat Lab (07/27/2018 3:42 PM CDT) Hemoglobin 14.2 12.0 - 15.0 g/dL [facility] Hematocrit 42.0 36.0 - 45.0 % [facility] Specimen Blood, Arterial Performing Organization Address [facility] Phone Number [address] * Blood gas, arterial (07/27/2018 3:42 PM CDT) pH, Arterial 7.37 7.35 - 7.45 [facility] pCO2, Arterial 48 (H) 35 - 45 mmHg [facility] pO2, Arterial 74 (L) 80 - 90 mmHg [facility] O2 Sat, Arterial 94.9 (L) 96.0 - 97.0 % [facility] HCO3, Arterial 27 21 - 29 mmol/L [facility] Base Excess, Arterial 1.3 -2.0 - 3.0 mmol/L [facility] Patient Temperature 36.4 C [facility] FIO2 100.0 % [facility] Specimen Blood, Arterial Performing Organization Address City/State/Zipcode Phone Number [facility] [address] [place] [address] [facility] * ANESTHESIA PERIPHERAL BLOCK (07/27/2018 3:28 PM CDT) Narrative Performed At Paolo Walls MD 07/27/20183:30 PM RIGHT serratus anterior plane block Patient location during procedure: OR Start time: 07/27/2018 3:15 PM End time: 07/27/2018 3:20 PM Procedure Indication: post-op pain management Preanesthetic Checklist Completed: patient identified, pre-op evaluation, timeout performed, IV checked, risks and benefits discussed, monitors and equipment checked, anesthesia consent given, prep site dry prior to draping and maximum sterile barriers were used: cap, mask, sterile gown, sterile gloves, and large sterile sheet Staffing Anesthesiologist: Paolo Walls MD Other anesthesia staff: Kyle Villegas AA Performed: personally Prep Prep: chlorhexidine gluconate and isopropyl alcohol Procedures: sterile gloves, surgical mask, surgical hat and sterile technique and prep Peripheral Nerve Block Patient position: left lateral decubitus (right side up) Patient monitoring: EKG, HR, BP and SpO2 Laterality: right Anesthesia block type: Serratus anterior plane. Injection technique: single-shot ultrasound guided - in plane, prescan was completed prior to procedure and needle tip was visualized throughout the entire procedure ultrasound image not saved Block Dose: ropivicaine and single-shot Infiltration strength: 0.5 % Dose: 30 mL Needle Needle type: short-bevel Needle gauge: 21 G Needle length: Other (110 mm) Insertion depth: 5 cm Needle Localization:US guided Hydrodissection? yes Assessment Injection assessment: incremental injection and negative aspiration for heme LOC: Anesthetized supplemental oxygen used.no evidence of intravascular injection and no heart rate changeno paresthesia patient had no immediate complications and patient tolerated the procedure well Procedure Note Paolo Walls MD - 07/27/2018 3:28 PM CDT RIGHT serratus anterior plane block Patient location during procedure: OR Start time: 07/27/2018 3:15 PM End time: 07/27/2018 3:20 PM Procedure Indication: post-op pain management Preanesthetic Checklist Completed: patient identified, pre-op evaluation, timeout performed, IV checked, risks and benefits discussed, monitors and equipment checked, anesthesia consent given, prep site dry prior to draping and maximum sterile barriers were used: cap, mask, sterile gown, sterile gloves, and large sterile sheet Staffing Anesthesiologist: Paolo Walls MD Other anesthesia staff: Kyle Villegas AA Performed: personally Prep Prep: chlorhexidine gluconate and isopropyl alcohol Procedures: sterile gloves, surgical mask, surgical hat and sterile technique and prep Peripheral Nerve Block Patient position: left lateral decubitus (right side up) Patient monitoring: EKG, HR, BP and SpO2 Laterality: right Anesthesia block type: Serratus anterior plane. Injection technique: single-shot ultrasound guided - in plane, prescan was completed prior to procedure and needle tip was visualized throughout the entire procedure ultrasound image not saved Block Dose: ropivicaine and single-shot Infiltration strength: 0.5 % Dose: 30 mL Needle Needle type: short-bevel Needle gauge: 21 G Needle length: Other (110 mm) Insertion depth: 5 cm Needle Localization: US guided Hydrodissection? yes Assessment Injection assessment: incremental injection and negative aspiration for heme LOC: Anesthetized supplemental oxygen used.no evidence of intravascular injection and no heart rate changeno paresthesia patient had no immediate complications and patient tolerated the procedure well * ABORH, manual (07/27/2018 10:03 AM CDT) ABO Grouping O [facility] Rh Factor POS [facility] Specimen Blood Performing Organization Address [facility] Phone Number [address] * Type and screen, automated (07/27/2018 9:45 AM CDT) ABO/RH AUTOMATED (BEAKER) O POSITIVE [facility] Ab Scrn NEGATIVE [facility] Specimen Blood Performing Organization Address [facility] Phone Number [address] * aPTT (07/27/2018 9:45 AM CDT) PTT 29.3 22.5 - 36.0 seconds [facility] Specimen Blood Performing Organization Address City/[facility] Phone Number [address] * Prothrombin time/INR (07/27/2018 9:45 AM CDT) Protime 13.3 11.7 - 14.7 seconds [facility] INR 1.0 <=5.9 [facility] Specimen Blood Narrative Performed At RECOMMENDED COUMADIN/WARFARIN INR THERAPY RANGES [facility] STANDARD DOSE: 2.0 - 3.0 Includes: PROPHYLAXIS for venous thrombosis, [facility] systemic embolization; TREATMENT for venous thrombosis and/or pulmonary embolus. HIGH RISK: Target INR is 2.5-3.5 for patients with mechanical heart valves. Performing Organization Address [facility] Phone Number [address] * Comprehensive metabolic panel (07/27/2018 9:45 AM CDT) Only the most recent of 2 results within the time period is included. Protein, Total 7.0 6.0 - 8.3 gm/dL [facility] Albumin 4.2 3.5 - 5.0 g/dL [facility] Alkaline Phosphatase 87 40 - 150 U/L [facility] Total Bilirubin 0.5 0.2 - 1.2 mg/dL [facility] Sodium 141 136 - 145 meq/L [facility] Potassium 4.0 3.5 - 5.1 meq/L [facility] Chloride 107 98 - 107 meq/L [facility] CO2 25 22 - 29 meq/L [facility] BUN 11 7 - 21 mg/dL [facility] Creatinine 0.79 0.57 - 1.25 mg/dL [facility] Glucose 93 70 - 105 mg/dL [facility] Calcium 9.9 8.4 - 10.2 mg/dL [facility] AST 18 5 - 34 U/L [facility] ALT 25 6 - 55 U/L [facility] EGFR Comment: INSUFFICIENT CLINICAL mL/min/1.73 sq m [facility] DATA TO CALCULATE ESTIMATED [facility] GFR. Specimen Blood Performing Organization Address City/State/Zipcode Phone Number [facility] [address] [place] [address] MED[facility] CENTER * POCT , urine (07/27/2018 9:36 AM CDT) Test Urine, POC Negative Control line present?, Yes POC Background clear?, POC Yes UPT [place] Lot #, POC [id number] [facility] [place] Expiration 11-07-2019 Date, POC Specimen * Urinalysis Microscopic Only (07/04/2018 1:55 PM SENIOR BENEFITS SPECIALIST) RBC, UA 1 /HPF [facility] WBC, UA 4 /HPF [facility] Bacteria, UA Occasional [facility] Mucus Rare [facility] Squam Epithel, UA 6 /HPF [facility] Hyaline Casts, UA 1 /LPF [facility] Crystals, Urine Rare [facility] Specimen Urine Performing Organization Address City/[facility]/Zipcode Phone Number [facility] [phone] * Urinalysis with Microscopic If Indicated (07/04/2018 1:55 PM SENIOR BENEFITS SPECIALIST) Color, UA Yellow [facility] Clarity, UA Clear [facility] Specific [place], UA 1.015 1.001 - 1.035 [facility] pH, UA 6.5 5.0 - 8.0 [facility] Protein, UA Negative Negative [facility] Glucose, UA Negative Negative [facility] Ketones, UA Negative Negative [facility] Bilirubin, UA Negative Negative [facility] Blood, UA Negative Negative [facility] Nitrite, UA Negative Negative [facility] Leukocytes, UA Moderate (A) Negative [facility] Urobilinogen, UA 2.0 (H) 0.2 - 1.0 mg/dL [facility] Specimen Source [facility] Specimen Urine Performing Organization Address City/[facility]/Zipcode Phone Number [facility] [address] [place] [address] [facility] * Screen, urine (07/04/2018 1:55 PM SENIOR BENEFITS SPECIALIST) Preg Test, Ur Negative [facility] Specimen Urine Performing Organization Address City/State/Zipcode Phone Number [facility] [address] [place] [address] [facility] * B-type Natriuretic Factor (BNP) (07/04/2018 11:33 AM SENIOR BENEFITS SPECIALIST) BNP <10 0 - 100 pg/mL [facility] Specimen Blood Performing Organization Address City/State/Zipcode Phone Number [facility] [address] [place] [phone] [facility] * Lipase (07/04/2018 11:33 AM SENIOR BENEFITS SPECIALIST) Lipase 11 8 - 78 U/L [facility] Specimen Blood Performing Organization Address City/[facility]/Zipcode Phone Number [facility] [address] [place] [address] [facility] after 12/19/2017 Insurance Payer Benefit Subscriber ID Type Phone Address Plan / Group MEDICAID - MEDICAID MGD [facility] xxxxxxxxx Medicaid CARE COMM STAR Contracted PLAN Advance Directives For more information, please contact: [address] [address] Date Inactivated Comments Code Status Date Activated 07/30/2018 3:55 PM Full Code 07/27/2018 9:22 AM This code status was determined by: Patient
--- OUTSIDE RECORDS SUMMARY | 2018-12-20 11:49 | XMS REPORT | Clinical Summary ---
Author Author [facility] Organization [place] [facility] Address Unknown Phone Unavailable Care Team Providers Care Datastage Developer Name Role Phone Asked, No Pcp PCP Unavailable Allergies Comments Active Allergy Reactions Severity Noted Date Droperidol Other (See 12/15/2016 Comments) Penicillins Hives 12/15/2016 Medications End Date Status Medication Sig Dispensed Refills Start Date Active lithium 150 MG capsule Take 150 mg 0 by mouth 2 (two) times a day with meals. Active sertraline (ZOLOFT) 100 Take 200 mg 0 MG tablet by mouth daily. Active bupropion HCl (WELLBUTRIN Take by 0 ORAL) mouth. 12/23/2017 clindamycin (CLEOCIN HCL) Take 1 30 capsule 0 300 MG capsule capsule (300 8 mg total) by mouth 3 (three) times a day for 10 days. 12/19/2017 traMADol (ULTRAM) 50 mg Take 1 tablet 24 tablet 0 tablet (50 mg total) 8 by mouth every 6 (six) hours as needed for moderate pain for up to 6 days. Active Problems Not on file Social History Date Tobacco Use Types Packs/Day Years Used Former Smoker Smokeless Tobacco: Never Used Alcohol Use Drinks/Week oz/Week Comments No Sex Assigned at Date Recorded Not on file Industry Job Start Date Occupation Not on file Not on file Not on file Travel End Travel History Travel Start No recent travel history available. Last Filed Vital Signs Not on file Plan of Treatment Health Maintenance Due Date Last Done Comments INFLUENZA VACCINE 12/08/2018 Results Not on fileafter 12/19/2017 Insurance Type Payer Benefit Subscriber ID Effective Phone Address Plan / Dates Group O [facility] MEDICAID [facility] xxxxxxxxx [id number] COMM STAR+ resent EARLENE Advance Directives Patient has advance care planning documents on file. For more information, jose a miller contact: Mele Conley [address] [place] [address]
--- OUTSIDE RECORDS SUMMARY | 2018-12-20 11:49 | XMS REPORT | Clinical Summary ---
Author Author [facility] Organization [facility] Address Unknown Phone Unavailable Care Team Providers Care Jail Manager Name Role Phone PCP Unavailable Allergies Comments Active Allergy Reactions Severity Noted Date Penicillin G Itching 10/22/2009 Medications End Date Status Medication Sig Dispensed Refills Start Date Active sodium chloride (OCEAN) Administer 2 15 mL 1 0.65 % nasal Sprays in 0 sprayIndications: each nostrils Allergic rhinitis, cause as needed for unspecified Congestion. Active esomeprazole (NEXIUM) 40 Take 40 mg by 0 mg delayed release mouth every capsule morning (before breakfast). Active hydrochlorothiazide Take 25 mg by 0 (HYDRODIURIL) 25 mg mouth daily. tablet Active lamoTRIgine (LAMICTAL) Take 1 tablet 30 tablet 2 100 mg tabletIndications: by mouth 2 Bipolar 2 disorder daily. Active doxepin (SINEQUAN) 10 mg Take 1 30 capsule 2 capsuleIndications: capsule by 2 Bipolar 2 disorder mouth every evening. Active citalopram (CELEXA) 20 mg Take 1 tablet 90 tablet 2 tabletIndications: by mouth 2 Bipolar 2 disorder daily. 90 day supply. Active aripiprazole (ABILIFY) 5 Take 1 tablet 30 tablet 2 mg tabletIndications: by mouth 2 Bipolar 2 disorder daily. Active albuterol (PROVENTIL) 2.5 Inhale 3 mL 75 mL 0 mg /3 mL (0.083 %) by mouth 5 nebulizer every 6 hours solutionIndications: as needed for Cough Wheezing. Active albuterol (VENTOLIN Inhale 2 1 Month 0 HFA,PROVENTIL HFA,PROAIR Puffs by Supply 5 HFA) 90 mcg/actuation mouth 4 times inhalerIndications: Cough daily as needed for Wheezing. Active traMADol (ULTRAM) 50 mg Take 1 tablet 30 tablet 0 tabletIndications: Gum by mouth 6 abscess, Pain, dental, every 6 hours Facial swelling as needed for Pain. Active traMADol (ULTRAM) 50 mg Take 1 tablet 20 tablet 0 tabletIndications: by mouth 8 Toothache every 6 hours as needed for Pain. Active ibuprofen (MOTRIN) 600 mg Take 1 tablet 30 tablet 0 tabletIndications: Chest by mouth 8 pain on breathing every 8 hours as needed for Pain. Active famotidine (PEPCID) 40 mg Take 1 tablet 10 tablet 0 tabletIndications: by mouth 9 Epigastric abdominal pain daily. 08/30/2018 ondansetron (ZOFRAN) 4 mg Take 1 tablet 10 tablet 0 tabletIndications: Nausea by mouth 9 and vomiting, every 8 hours intractability of as needed for vomiting not specified, up to 7 days unspecified vomiting type for Nausea. 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 Pap/Pelvic(18-65 q 2 yr): 04/17 Mary (50+ yearly): Occult Blood (50+ yearly): Cholest (20+ q 5 years):01/17 Td (adult 11+):2007 ppd: Pneumovax adult: Fluzone: Smoker 01/07/2010 Status post cholecystectomy 01/07/2010 Overview: 2009 Dysphagia 01/07/2010 Syphilis 01/07/2010 Overview: tx in past Anxiety state, unspecified 01/07/2010 PTSD (post-traumatic stress disorder) 01/07/2010 Bipolar d/o NOS 01/07/2010 Overview: Pt self report from hx tx mhmra Incisional hernia 01/07/2010 Sleep apnea 01/07/2010 Suicidal ideation Other specified persistent mood disorders Cluster B personality disorder Bipolar 1 disorder Encounters Care Team Description Date Type Specialty RowanSmith arboleda DO Pandya, Michael, MD Nausea and vomiting, intractability of vomiting not specified, unspecified vomiting type (Primary Dx); Epigastric abdominal pain; Temporal headache 08/22/2018 Emergency Emergency Medicine - 08/23/2018 08/22/2018 Travel after 12/19/2017 Immunizations Name Administration Dates Next Due Albuterol 0.083% (3ml) 12/31/2014 PPV 23 Pneumococcal 12/31/2014 (Deferred: Patient Refused - will Polysaccaride return when not ill for vaccine) Family History Medical History Relation Name Comments Diabetes Father Hypertension Father Arthritis Mother Cancer Mother ` Pulmonary Mother Cancer Paternal Grandfather Diabetes Paternal Grandmother Relation Name Status Comments Father Maternal Grandfather Maternal Grandmother Mother Paternal Grandfather Paternal Grandmother Social History Date Tobacco Use Types Packs/Day Years Used Former Smoker Cigarettes 0.5 5 Smokeless Tobacco: Former Quit: 05/08/2010 User Drinks/Week oz/Week Comments Alcohol Use No Sex Assigned at Date Recorded Not on file Industry Job Start Date Occupation Not on file Not on file Not on file Travel End Travel History Travel Start No recent travel history available. Last Filed Vital Signs Reading Time Taken Comments Vital Sign 125/80 08/23/2018 7:00 AM CDT Blood Pressure 93 08/23/2018 7:00 AM CDT Pulse 37.2 C (99 F) 08/23/2018 7:00 AM CDT Temperature 20 08/23/2018 7:00 AM CDT Respiratory Rate 100% 08/23/2018 7:00 AM CDT Oxygen Saturation - - Inhaled Oxygen Concentration 133.6 kg (294 lb 8 oz) 08/22/2018 3:05 PM CDT Weight - - Height 53.86 09/10/2015 8:42 AM CDT Body Mass Index Plan of Treatment Health Maintenance Due Date Last Done Comments Cervical Cancer Scrn (3 1992 Yrs) Breast Cancer Scrn 2011 (Yearly) IMM Influenza Seasonal 02/07/2019Feb to July (>/=19 yrs) Procedures Comments Procedure Name Priority Date/Time Associated Diagnosis CT CHEST PE PROTOCOL STAT 08/23/2018 Nausea and vomiting, 4:54 AM CDT intractability of vomiting not specified, unspecified vomiting type CT HEAD W/O CONTRAST STAT 08/23/2018 Nausea and vomiting, 4:45 AM CDT intractability of vomiting not specified, unspecified vomiting type TROPONIN I POC Routine 08/23/2018 1:42 AM CDT D-DIMER STAT 08/23/2018 1:[address] ABDOMEN AND PELVIS STAT 08/22/2018 Nausea and vomiting, CONTRAST 11:06 PM CDT intractability of vomiting not specified, unspecified vomiting type Epigastric abdominal pain URINALYSIS STAT 08/22/2018 9:40 PM CDT LIPASE STAT 08/22/2018 7:46 PM CDT LIVER PROFILE STAT 08/22/2018 7:46 PM CDT POCT URINE DIPSTICK - STAT 08/22/2018 5:11 PM CDT XRAY CHEST 2 VIEWS STAT 08/22/2018 Nausea and vomiting, 4:52 PM CDT intractability of vomiting not specified, unspecified vomiting type VBG POC Routine 08/22/2018 4:36 PM CDT BMP POC Routine 08/22/2018 4:35 PM CDT CBC/DIFF STAT 08/22/2018 4:34 PM CDT 12 LEAD EKG Routine 08/22/2018 3:11 PM CDT after 12/19/2017 Results * CT CHEST PE PROTOCOL (08/23/2018 4:54 AM CDT) Specimen Impressions Performed At IMPRESSION: [facility] 1.No pulmonary embolus seen up to the segmental levels. 2.Mild pulmonary interstitial edema with loculated small right pleural effusion and trace pericardial effusion. 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 This [facility] radiology report is a preliminary resident dictation until finalized by an attending.Changes to this preliminary report may occur in an additional preliminary or finalized version. Dictated By: Chris Rubio DO, 08/23/2018 5:00 AM I have reviewed the study and agree with the findings in this report. Signed By: Maximilinao August MD, 08/23/2018 5:18 AM Narrative Performed At EXAM: CTA CHEST WITH CONTRAST SMS DATE: 08/23/2018 4:56 AM INDICATION: PE suspected, intermediate prob, positive D-dimer. Nausea and vomiting, intractability of vomiting not specified, unspecified vomiting type COMPARISON: Most recent chest x-ray and CT abdomen and pelvis from 08/22/2018. TECHNIQUE: Volumetric CT of the chest is acquired during pulmonary arterial phase following intravenous administration of contrast. Axial, sagittal, coronal, and oblique MIP reconstructions are created at the acquisition workstation. IV contrast: 100 mL of Omnipaque 350. DLP: 543 mGy-cm FINDINGS: The examination is limited by body habitus streak artifact. Lines and tubes: None. Lower neck: Unremarkable. Axilla: Clear. Airway: Patent. Lungs and pleura:Small loculated right pleural effusion with mild diffuse groundglass opacity in bilateral lung and associated interlobular septal thickening. Post surgical changes from right middle lobe resection. No left pleural effusion or pneumothorax. Mediastinum, espinoza and intrathoracic lymph nodes: Normal. Heart, pericardium and great vessels: Pulmonary emboli: None up to segmental levels. Pulmonary trunk: 2.9 cm. Ascending aorta: 3.4 cm. Heart: Normal. No right heart strain. Pericardium: Trace pericardial effusion. Upper abdomen: Postcholecystectomy. Otherwise unremarkable. Please to the CT abdomen and pelvis scan from 08/22/2018 for findings under the diaphragm. Bones: No acute abnormality. Again seen degenerative disc disease at T11-T12. Soft tissues: Few foci of gas again seen along the right lateral subcutaneous tissues of the lower chest, likely related to recent procedure. Procedure Note Interface, Rad/Mammog In - 08/23/2018 5:23 AM CDT EXAM: CTA CHEST WITH CONTRAST DATE: 08/23/2018 4:56 AM INDICATION: PE suspected, intermediate prob, positive D-dimer. Nausea and vomiting, intractability of vomiting not specified, unspecified vomiting type COMPARISON: Most recent chest x-ray and CT abdomen and pelvis from 08/22/2018. TECHNIQUE: Volumetric CT of the chest is acquired during pulmonary arterial phase following intravenous administration of contrast. Axial, sagittal, coronal, and oblique MIP reconstructions are created at the acquisition workstation. IV contrast: 100 mL of Omnipaque 350. DLP: 543 mGy-cm FINDINGS: The examination is limited by body habitus streak artifact. Lines and tubes: None. Lower neck: Unremarkable. Axilla: Clear. Airway: Patent. Lungs and pleura: Small loculated right pleural effusion with mild diffuse groundglass opacity in bilateral lung and associated interlobular septal thickening. Post surgical changes from right middle lobe resection. No left pleural effusion or pneumothorax. Mediastinum, espinoza and intrathoracic lymph nodes: Normal. Heart, pericardium and great vessels: Pulmonary emboli: None up to segmental levels. Pulmonary trunk: 2.9 cm. Ascending aorta: 3.4 cm. Heart: Normal. No right heart strain. Pericardium: Trace pericardial effusion. Upper abdomen: Postcholecystectomy. Otherwise unremarkable. Please to the CT abdomen and pelvis scan from 08/22/2018 for findings under the diaphragm. Bones: No acute abnormality. Again seen degenerative disc disease at T11-T12. Soft tissues: Few foci of gas again seen along the right lateral subcutaneous tissues of the lower chest, likely related to recent procedure. IMPRESSION IMPRESSION: 1. No pulmonary embolus seen up to the segmental levels. 2. Mild pulmonary interstitial edema with loculated small right pleural effusion and trace pericardial effusion. 3. Postsurgical changes from right middle lobe resection. This [facility] radiology report is a preliminary resident dictation until finalized by an attending. Changes to this preliminary report may occur in an additional preliminary or finalized version. Dictated By: Chris Rubio DO, 08/23/2018 5:00 AM I have reviewed the study and agree with the findings in this report. Signed By: Maximiliano August MD, 08/23/2018 5:18 AM Performing Organization Address City/State/Zipcode Phone Number SMS * CT HEAD W/O CONTRAST (08/23/2018 4:45 AM CDT) Specimen Impressions Performed At IMPRESSION: [facility] No acute intracranial abnormality. This [facility] radiology report is a preliminary resident dictation until finalized by an attending.Changes to this preliminary report may occur in an additional preliminary or finalized version. Dictated By: Chris Rubio DO, 08/23/2018 4:49 AM I have reviewed the study and agree with the findings in this report. Signed By: Maximiliano August MD, 08/23/2018 5:07 AM Narrative Performed At EXAM: CT BRAIN WITHOUT CONTRAST [facility] DATE: 08/23/2018 4:45 AM INDICATION: Headache, chronic, neuro deficit. COMPARISON: None. TECHNIQUE: Axial CT images of the brain are acquired without contrast. Sagittal and coronal reformats. IV contrast: None. DLP: 867 mGy-cm FINDINGS: There is no edema, hemorrhage, mass lesion or other acute intracranial abnormality. There is no fracture of the skull, skull base, or visible facial bones. The paranasal sinuses and orbits are unremarkable. Procedure Note Interface, Rad/Mammog In - 08/23/2018 5:12 AM CDT EXAM: CT BRAIN WITHOUT CONTRAST DATE: 08/23/2018 4:45 AM INDICATION: Headache, chronic, neuro deficit. COMPARISON: None. TECHNIQUE: Axial CT images of the brain are acquired without contrast. Sagittal and coronal reformats. IV contrast: None. DLP: 867 mGy-cm FINDINGS: There is no edema, hemorrhage, mass lesion or other acute intracranial abnormality. There is no fracture of the skull, skull base, or visible facial bones. The paranasal sinuses and orbits are unremarkable. IMPRESSION IMPRESSION: No acute intracranial abnormality. This [facility] radiology report is a preliminary resident dictation until finalized by an attending. Changes to this preliminary report may occur in an additional preliminary or finalized version. Dictated By: Chris Rubio DO, 08/23/2018 4:49 AM I have reviewed the study and agree with the findings in this report. Signed By: Maximiliano August MD, 08/23/2018 5:07 AM Performing Organization Address [facility] Phone Number [facility] * TROPONIN I POC (08/23/2018 1:42 AM CDT) Troponin POC 0.00Comment: Physician 0.00 - 0.08 ng/mL J Notified MAIN-STATION 1 Specimen Performing Organization Address [facility] Phone Number [facility]-ST[facility] 1 * D-DIMER (08/23/2018 1:34 AM CDT) D-Dimer 1.41 ug/mL,FEU [facility] Comment: MAIN-STATION 2 Values of quantitative d-Dimer less than 0.40 ug/mL FEU have been reported to be associated with a low probability of deep vein thrombosis/pulmonary embolism. This test alone should not be used to rule out DVT/PE. Specimen Blood Performing Organization Address City/State/Zipcode Phone Number [facility] MAIN-STATION 2 * CT ABDOMEN AND PELVIS CONTRAST (08/22/2018 11:06 PM CDT) Specimen Impressions Performed At IMPRESSION: [facility] 1.No acute CT abnormality in the abdomen and pelvis. 2.Small right pleural effusion. 3.Few foci of gas along the right lateral subcutaneous tissues of the upper abdomen may relate to recent injection. This [facility] radiology report is a preliminary resident dictation until finalized by an attending.Changes to this preliminary report may occur in an additional preliminary or finalized version. Dictated By: Chris Rubio DO, 08/22/2018 11:16 PM I have reviewed the study and agree with the findings in this report. Signed By: Maximiliano August MD, 08/22/2018 11:24 PM Narrative Performed At EXAM: CT ABDOMEN AND PELVIS WITH CONTRAST [facility] DATE: 08/22/2018 11:06 PM INDICATION: Abd pain, unspecified. Nausea and vomiting, intractability of vomiting not specified, unspecified. COMPARISON: None. TECHNIQUE: Volumetric CT of the abdomen and pelvis is acquired following the intravenous administration of contrast. Axial, coronal and sagittal images are provided. IV contrast: 150 mL of Omnipaque 300. Enteric contrast: None. DLP: 1391 mGy-cm FINDINGS: Lines, tubes and hardware: None. Lower thorax: Small pleural effusion on the right with minimal associated passive atelectasis of the right lower lobe. Liver: Normal. Biliary tree: No intra- or extrahepatic biliary ductal dilation. Gallbladder: Surgically absent. Pancreas: Normal. Spleen: Normal. Adrenals: Normal. Kidneys and ureters: 1.8 cm well-circumscribed benign-appearing right superior pole hypodensity, 1.8 cm, statistically likely representing benign cyst. No hydronephrosis or renal calculi. Bladder: Normal. Reproductive organs: Uterus and adnexa are unremarkable. Gastrointestinal tract: Stomach: Normal. Small bowel: Incidentally noted duodenal diverticulum at the first portion of duodenum. No small bowel obstruction. Colon: Normal. Appendix: Normal. Peritoneum, mesentery and retroperitoneum: No free air, ascites or loculated fluid. Lymph nodes: Normal. Vasculature: Aorta and branches: Normal. IVC and veins: Normal. Portal vasculature: Normal. Bones: No acute abnormality. Degenerative disc disease at T11-T12 with Schmorl's nodes and vacuum phenomenon. Soft tissues: Small fat-containing umbilical hernia. Few foci of gas along the right lateral subcutaneous tissues of the upper abdomen. Procedure Note Interface, Rad/Mammog In - 08/22/2018 11:30 PM CDT EXAM: CT ABDOMEN AND PELVIS WITH CONTRAST DATE: 08/22/2018 11:06 PM INDICATION: Abd pain, unspecified. Nausea and vomiting, intractability of vomiting not specified, unspecified. COMPARISON: None. TECHNIQUE: Volumetric CT of the abdomen and pelvis is acquired following the intravenous administration of contrast. Axial, coronal and sagittal images are provided. IV contrast: 150 mL of Omnipaque 300. Enteric contrast: None. DLP: 1391 mGy-cm FINDINGS: Lines, tubes and hardware: None. Lower thorax: Small pleural effusion on the right with minimal associated passive atelectasis of the right lower lobe. Liver: Normal. Biliary tree: No intra- or extrahepatic biliary ductal dilation. Gallbladder: Surgically absent. Pancreas: Normal. Spleen: Normal. Adrenals: Normal. Kidneys and ureters: 1.8 cm well-circumscribed benign-appearing right superior pole hypodensity, 1.8 cm, statistically likely representing benign cyst. No hydronephrosis or renal calculi. Bladder: Normal. Reproductive organs: Uterus and adnexa are unremarkable. Gastrointestinal tract: Stomach: Normal. Small bowel: Incidentally noted duodenal diverticulum at the first portion of duodenum. No small bowel obstruction. Colon: Normal. Appendix: Normal. Peritoneum, mesentery and retroperitoneum: No free air, ascites or loculated fluid. Lymph nodes: Normal. Vasculature: Aorta and branches: Normal. IVC and veins: Normal. Portal vasculature: Normal. Bones: No acute abnormality. Degenerative disc disease at T11-T12 with Schmorl's nodes and vacuum phenomenon. Soft tissues: Small fat-containing umbilical hernia. Few foci of gas along the right lateral subcutaneous tissues of the upper abdomen. IMPRESSION IMPRESSION: 1. No acute CT abnormality in the abdomen and pelvis. 2. Small right pleural effusion. 3. Few foci of gas along the right lateral subcutaneous tissues of the upper abdomen may relate to recent injection. This [facility] radiology report is a preliminary resident dictation until finalized by an attending. Changes to this preliminary report may occur in an additional preliminary or finalized version. Dictated By: Chris Rubio DO, 08/22/2018 11:16 PM I have reviewed the study and agree with the findings in this report. Signed By: Maximiliano August MD, 08/22/2018 11:24 PM Performing Organization Address City/State/Zipcode Phone Number SMS * UA CHEMISTRIES (08/22/2018 9:40 PM CDT) Color Yellow [facility] Clarity Hazy [facility] Specific 1.021 1.001 - 1.035 [facility] Tamiment pH 5.0 5 - 8 [facility] Protein Negative NEG [facility] Glucose Negative NEG [facility] Ketones Negative [facility]G [facility] Bilirubin Negative NEG [facility] Nitrate Negative NEG [facility] Urobilinogen,Se 1.0 0.2 - 1.0 EU/dL [facility] mi-Qn Leukocyte Trace (A) NEG [facility] Occult Blood 1+ (A) NEG [facility] RBC 3 0 - 4 /HPF [facility] WBC 11 (H) 0 - 5 /HPF [facility] Bacteria Few [facility] Epithelial Cell 22 /HPF [facility] Mucous Present [facility] Specimen Urine Performing Organization Address City/[facility] Phone Number [facility] [address] [place] [address] * LIVER PROFILE (08/22/2018 7:46 PM CDT) Protein, Total, 6.7 6.0 - 8.3 g/dL LB Serum MAIN-STATION 1 Albumin 4.2 3.7 - 5.3 g/dL [facility]IN-STATION 1 Bilirubin, 0.7 0.2 - 1.2 mg/dL LB Total MAIN-STATION 1 Alkaline 93 34 - 104 U/L [facility] Phosphatase, S MAIN-STATION 1 AST (SGOT) 13 13 - 39 U/L LB MAIN-STATION 1 ALT 17 7 - 52 U/L [facility] MAIN-STATION 1 D Bilirubin 0.1 0.0 - 0.2 mg/dL LB MAIN-STATION 1 Specimen Blood Performing Organization Address City/[facility]/Zipcode Phone Number MISYS [facility] MAIN-STATION 1 * LIPASE (08/22/2018 7:46 PM CDT) Lipase 1 (L) 11 - 81 U/L LB MAIN-STATION 1 Specimen Blood Performing Organization Address [facility] Phone Number MISYS [facility] MAIN-STATION 1 * POCT URINE DIPSTICK - (08/22/2018 5:11 PM CDT) Pass Control Negative * XRAY CHEST 2 VIEWS (08/22/2018 4:52 PM CDT) Specimen Impressions Performed At IMPRESSION: Mild right lower lung airspace opacity representing SMS atelectasis or pneumonia. Small right pleural effusion. Signed By: Cecilia Michaels MD, 08/22/2018 4:56 PM Narrative Performed At EXAM: XR CHEST 2 VIEWS [facility] DATE: 08/22/2018 4:33 PM INDICATION: s/p RML resection + cough. Nausea and vomiting, intractability of vomiting not specified, unspecified vomiting type COMPARISON: 08/17/2017 TECHNIQUE: PA and lateral chest radiographs FINDINGS: Lines, tubes and hardware: Surgical clips overlie the gallbladder fossa. Lungs and pleura: Mild airspace opacity is present in the right lower lung laterally. A small right pleural effusion is present, the left costophrenic sulcus is clear. Heart and mediastinum: The heart size is normal. The mediastinal contours are normal. Bones: No acute bony abnormality. Prior resection of the right distal clavicle is present. Procedure Note Interface, Rad/Mammog In - 08/22/2018 5:16 PM CDT EXAM: XR CHEST 2 VIEWS DATE: 08/22/2018 4:33 PM INDICATION: s/p RML resection + cough. Nausea and vomiting, intractability of vomiting not specified, unspecified vomiting type COMPARISON: 08/17/2017 TECHNIQUE: PA and lateral chest radiographs FINDINGS: Lines, tubes and hardware: Surgical clips overlie the gallbladder fossa. Lungs and pleura: Mild airspace opacity is present in the right lower lung laterally. A small right pleural effusion is present, the left costophrenic sulcus is clear. Heart and mediastinum: The heart size is normal. The mediastinal contours are normal. Bones: No acute bony abnormality. Prior resection of the right distal clavicle is present. IMPRESSION IMPRESSION: Mild right lower lung airspace opacity representing atelectasis or pneumonia. Small right pleural effusion. Signed By: Cecilia Michaels MD, 08/22/2018 4:56 PM Performing Organization Address [facility] Phone Number [facility] * VBG POC (08/22/2018 4:36 PM CDT) pH, Devin POC 7.39Comment: Physician 7.33 - 7.43 LB Notified MAIN-STATION 1 pCO2, Devin POC 42.9 38.0 - 50.0 mm Hg LB MAIN-STATION 1 pO2, Devin POC 37 (L) 50 - 75 mm Hg [facility] MAIN-STATION 1 Base Excess, 0 mmol/L [facility] Devin POC MAIN-STATION 1 HCO3, Devin POC 25.7 22.0 - 26.0 mmol/L LB MAIN-STATION 1 % Sat, Devin POC 70 60 - 85 % [facility] MAIN-STATION 1 Lactic Acid, 0.83 0.4 - 2.0 mmol/L [facility] Devin POC MAIN-STATION 1 TCO2, DEVIN POC 27 21 - 32 mmol/L [facility] MAIN-STATION 1 Specimen Performing Organization Address [facility] Phone Number MISYS [facility] MAIN-STATION 1 * BMP POC (08/22/2018 4:35 PM CDT) CO2 POC 26Comment: Physician Notified 21 - 32 mmol/L [facility] MAIN-STATION 1 Chloride POC 101 98 - 107 mmol/L [facility] MAIN-STATION 1 Potassium POC 4.0 3.50 - 5.10 mmol/L [facility] MAIN-STATION 1 Sodium POC 140 136 - 145 mmol/L [facility] MAIN-STATION 1 Glucose POC 111 (H) 74 - 106 mg/dL [facility] [facility] 1 Urea Nitrogen 13 7 - 18 mg/dL [facility] POC [facility] 1 Creatinine POC 0.7 0.6 - 1.3 mg/dL [facility] 1 Calcium Ionized 1.18 1.15 - 1.29 mmol/L [facility] POC [facility] 1 Hemoglobin POC 16.0 12.0 - 16.0 g/dL [facility] 1 Hematocrit POC 47.0 37.0 - 47.0 % [facility] 1 GFR, Estimated >60 mL/min/1.73 m2 [facility] 1 GFR, Estim, >60 mL/min/1.73 m2 [facility] Afr-Am [facility] 1 Specimen Performing Organization Address [facility] Phone Number MISYS [facility] 1 * CBC/DIFF (08/22/2018 4:34 PM CDT) WBC 7.8 4.5 - 11.0 K/uL [facility] 2 RBC 5.25 4.20 - 5.40 M/uL [facility] 2 Hemoglobin 14.3 12.0 - 16.0 g/dL [facility] 2 Hematocrit 45.8 37.0 - 47.0 % [facility] 2 MCV 87 82 - 92 fL [facility] 2 MCH 27.2 27.0 - 32.0 pg [facility] 2 MCHC 31.2 (L) 32.0 - 36.0 g/dL [facility] 2 RDW 47.0 (H) 36.4 - 46.3 fL [facility] 2 Platelets 183 150 - 400 K/uL [facility] 2 Mean Platelet 9.8 9.4 - 12.4 fL [facility] Volume [facility] 2 Percent NRBC 0.0 [facility] 2 Absolute NRBC 0.00 [facility] 2 Neutrophils 92.2 (H) 34.0 - 70.0 % [facility] 2 Lymphs 3.7 (L) 20.0 - 50.0 % [facility] 2 Monocytes 2.8 (L) 5.0 - 12.0 % [facility] 2 Eos 0.9 0.7 - 5.0 % [facility] 2 Basos 0.1 0.1 - 1.2 % [facility] 2 Immature 0.3 0.0 - 0.5 [facility] Granulocytes [facility] 2 Neutrophils 7.20 (H) 1.56 - 6.13 K/uL [facility] (Absolute) [facility] 2 Lymphs 0.29 (L) 1.18 - 3.74 K/uL [facility] (Absolute) [facility] 2 Monocytes(Absol 0.22 (L) 0.24 - 0.36 K/uL [facility] abida) [facility] 2 Eos (Absolute) 0.07 0.04 - 0.36 K/uL [facility] 2 Baso (Absolute) 0.01 0.01 - 0.08 K/uL [facility] 2 Immature Grans 0.02 0.00 - 0.03 K/uL [facility] (Abs) [facility] 2 Specimen Blood Performing Organization Address City/State/[facility] Phone Number MISYS [facility] 2 * 12 LEAD EKG (08/22/2018 3:11 PM CDT) 12 LEAD EKG [facility]:2018-08-22 Pat Name: MILANA LUGO epartment: [id number] Room: 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: [id number]/DIZZINESS :[birth year] Requested By: REID Carney Order Number: [id number] Reading MD: Ernesto KENNY Measurements Intervals [place] Rate: 103 P: 33 DC: 180 QRS: 15 QRSD: 103 T: 35 QT: 334 QTc:439 Interpretive Statements SINUS TACHYCARDIA POOR R WAVE PROGRESSION Minor Non-specific ST-T changes Borderline ECG Electronically Signed On 08-22-2018 16:23:30 CDT by Ernesto KENNY Specimen Performing Organization Address City/State/Zipcode Phone Number [facility] after 12/19/2017 Insurance Type Payer Benefit Subscriber ID Effective Phone Address Plan / Dates Group [facility] xxxxxxxxx 2018-[address] [facility] [id number] [place] [address]
--- OUTSIDE RECORDS SUMMARY | 2018-12-20 11:51 | XMS REPORT | Continuity of Care Document ---
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 patients and those with serious co-morbid conditions.

Patients with extremes in muscle mass or diet.

The data above are obtained from the National Kidney Disease Education Program (NKDEP) which additionally recommends that when the eGFR is used in patients with extremes of body mass index for purposes of drug dosing, the eGFR should be multiplied by the estimated BMI. [facility] CHEM PANEL BUN 10 7 - 22 10/05/2018 [facility] CHEM PANEL Sodium Lvl 139 135 - 145 10/05/2018 [facility] CHEM PANEL Alk Phos 111 39 - 136 10/05/2018 [facility] CHEM PANEL Chloride Lvl 103 95 - 109 10/05/2018 [facility] CHEM PANEL Bili Total 0.3 0.2 - 1.3 10/05/2018 [facility] CHEM PANEL Potassium Lvl 4.1 3.5 - 5.1 10/05/2018 [facility] CHEM PANEL Total Protein 7.4 6.4 - 8.4 10/05/2018 [facility] CHEM PANEL Calcium Lvl 9.2 8.5 - 10.5 10/05/2018 [facility] CHEM PANEL CO2 30 24 - 32 10/05/2018 [facility] CHEM PANEL Creatinine Lvl 0.96 0.50 - 1.40 10/05/2018 [facility] CHEM PANEL AST 16 0 - 37 10/05/2018 [facility] CHEM PANEL Albumin Lvl 3.6 3.5 - 5.0 10/05/2018 [facility] CHEM PANEL ALT 27 0 - 65 10/05/2018 [facility] CHEM PANEL Glucose Lvl 87 70 - 99 10/05/2018 [facility] CHEM PANEL A/G Ratio 0.9 0.7 - 1.6 10/05/2018 [facility] CHEM PANEL B/C Ratio 10 6 - 25 10/05/2018 [facility] CHEM PANEL Globulin 3.8 2.7 - 4.2 10/05/2018 [facility] CHEM PANEL AGAP 10.1 10.0 - 20.0 10/05/2018 [facility] HEMATOLOGY Eosinophils 1.7 0.0 - 4.0 10/05/2018 [facility] HEMATOLOGY Basophils 0.4 0.0 - 1.0 10/05/2018 [facility] HEMATOLOGY Neutrophils # 3.4 1.5 - 8.1 10/05/2018 [facility] HEMATOLOGY Lymphocytes # 2.0 1.0 - 5.5 10/05/2018 [facility] HEMATOLOGY Monocytes # 0.4 0.0 - 0.8 10/05/2018 [facility] Eosinophils # 0.1 0.0 - 0.5 10/05/2018 [facility] Segs 57.7 45.0 - 75.0 10/05/2018 [facility] Lymphocytes 34.1 20.0 - 40.0 10/05/2018 [facility] Monocytes 6.1 2.0 - 12.0 10/05/2018 [facility] Platelet 234 133 - 450 10/05/2018 [facility] RDW 15.4 11.5 - 14.5 10/05/2018 [facility] Hct 42.3 36.0 - 48.0 10/05/2018 [facility] MCV 83.2 80.0 - 98.0 10/05/2018 [facility] MCH 27.5 27.0 - 31.0 10/05/2018 [facility] MCHC 33.1 32.0 - 36.0 10/05/2018 [facility] MPV 7.9 7.4 - 10.4 10/05/2018 [facility] Hgb 14.0 12.0 - 16.0 10/05/2018 [facility] RBC 5.08 4.20 - 5.40 10/05/2018 [facility] WBC 6.0 3.7 - 10.4 10/05/2018 [facility] D-DIMER D-Dimer 1.41 ug/mL,FEU 08/23/2018 Values of quantitative d-Dimer less than 0.40 ug/mL FEU have been reported to
be associated with a low probability of deep vein thrombosis/pulmonary
embolism. This test alone should not be used to rule out DVT/PE.

[facility] TROPONIN I POC Troponin POC 0.00 0 - 0.08 08/23/2018 Physician Notified [facility] CHEMISTRIES <td ID="[id number]">Color</td><td>Yellow</td><td/><td>[facility]</td><td ID="[id number]"/> Yellow 08/23/[address] [facility] UA CHEMISTRIES Clarity Hazy 08/23/2018 [facility] CHEMISTRIES <td ID="[id number]">Specific [place]</td><td>1.021</td><td>1.001 - 1.035</td><td>[facility]</td><td ID="[id number]"/> 1.021 1.001 - 1.035 08/23/2018 [facility] CHEMISTRIES <td ID="[id number]">pH</td><td>5.0</td><td>5 - 8</td><td>[facility]</td><td ID="[id number]"/> 5.0 5 - 8 08/23/[address] [facility] UA CHEMISTRIES <td ID="[id number]">Protein</td><td>Negative</td><td>NEG</td><td>[facility]</td><td ID="[id number]"/> Negative NEG 08/23/[address] [facility] UA CHEMISTRIES <td ID="[id number]">Glucose</td><td>Negative</td><td>NEG</td><td>[facility]</td><td ID="[id number]"/> Negative NEG 08/23/[address] [facility] UA CHEMISTRIES <td ID="[id number]">Ketones</td><td>Negative</td><td>NEG</td><td>[facility]</td><td ID="[id number]"/> Negative NEG 08/23/[address] [facility] UA CHEMISTRIES <td ID="[id number]">Bilirubin</td><td>Negative</td><td>NEG</td><td>[facility]</td><td ID="[id number]"/> Negative NEG 08/23/[address] [facility] UA CHEMISTRIES <td ID="[id number]">Nitrate</td><td>Negative</td><td>NEG</td><td>[facility]</td><td ID="[id number]"/> Negative NEG 08/23/[address] [facility] UA CHEMISTRIES <td ID="[id number]">Urobilinogen,Semi- Qn</td><td>1.0</td><td>0.2 - 1.0 EU/dL</td><td>[facility]</td><td ID="[id number]"/> 1.0 0.2 - 1 08/23/[address] [facility] UA CHEMISTRIES <td ID="[id number]">Leukocyte</td><td><span style="flagData">Trace</span><span style="flagData"> (A)</span></td><td>NEG</td><td>[facility]</td><td ID=&q uot;[id number]"/> Trace NEG 08/23/[address] [facility] UA CHEMISTRIES Occult Blood 1+ NEG 08/23/[address] [facility] UA CHEMISTRIES RBC 3 0 - 4 08/23/[address] [facility] UA CHEMISTRIES WBC 11 0 - 5 08/23/[address] [facility] UA CHEMISTRIES Bacteria Few 08/23/[address] [facility] UA CHEMISTRIES Epithelial Cell 22 /HPF 08/23/[address] [facility] UA CHEMISTRIES Mucous Present 08/23/2018 [facility] CHEMISTRIES Lab Interpretation Abnormal 08/23/[address] [facility] LIPASE <td ID="[id number]">Lipase</td><td><span style="flagData">1</span><span style="flagData"> (L)</span></td><td>11 - 81 U/L</td><td>[facility]</td><td ID=&a mp;quot;[id number]"/> 1 11 - 81 08/23/[address] [facility] LIPASE Lab Interpretation Abnormal 08/23/2018 [facility] LIVER PROFILE <td ID="[id number]">Protein, Total, Serum</td><td>6.7</td><td>6.0 - 8.3 g/dL</td><td>[facility]</td><td ID="[id number]"/> 6.7 6 - 8.3 08/23/2018 [facility] LIVER PROFILE <td ID="[id number]">Albumin</td><td>4.2</td><td>3.7 - 5.3 g/dL</td><td>[facility]</td><td ID="[id number]"/> 4.2 3.7 - 5.3 08/23/2018 [facility] LIVER PROFILE <td ID="[id number]">Bilirubin, Total</td><td>0.7</td><td>0.2 - 1.2 mg/dL</td><td>[facility]</td><td ID="[id number]"/> 0.7 0.2 - 1.2 08/23/2018 [facility] LIVER PROFILE <td ID="[id number]">Alkaline Phosphatase, S</td><td>93</td><td>34 - 104 U/L</td><td>[facility]</td><td ID="[id number]"/> 93 34 - 104 08/23/2018 [facility] LIVER PROFILE <td ID="[id number]">AST (SGOT)</td><td>13</td><td>13 - 39 U/L</td><td>[facility]</td><td ID="[id number]"/> 13 13 - 39 08/23/2018 [facility] LIVER PROFILE <td ID="[id number]">ALT</td><td>17</td><td>7 - 52 U/L</td><td>[facility]</td><td ID="[id number]"/> 17 7 - 52 08/23/[address] [facility] LIVER PROFILE <td ID="[id number]">D Bilirubin</td><td>0.1</td><td>0.0 - 0.2 mg/dL</td><td>[facility]</td><td ID="[id number]"/> 0.1 0 - 0.2 08/23/[address] [facility] CBC/DIFF <td ID="[id number]">WBC</td><td>7.8</td><td>4.5 - 11.0 K/uL</td><td>[facility]</td><td ID="[id number]"/> 7.8 4.5 - 11 08/22/[address] [facility] CBC/DIFF <td ID="[id number]">RBC</td><td>5.25</td><td>4.20 - 5.40 M/uL</td><td>[facility]</td><td ID="[id number]"/> 5.25 4.20 - 5.40 08/22/[address] [facility] CBC/DIFF <td ID="[id number]">Hemoglobin</td><td>14.3</td><td>12.0 - 16.0 g/dL</td><td>[facility]</td><td ID="[id number]"/> 14.3 12 - 16 08/22/[address] [facility] CBC/DIFF <td ID="[id number]">Hematocrit</td><td>45.8</td><td>37.0 - 47.0 %</td><td>[facility]</td><td ID="[id number]"/> 45.8 37 - 47 08/22/[address] [facility] CBC/DIFF <td ID="[id number]">MCV</td><td>87</td><td>82 - 92 fL</td><td>[facility]</td><td ID="[id number]"/> 87 82 - 92 08/22/[address] [facility] CBC/DIFF <td ID="[id number]">MCH</td><td>27.2</td><td>27.0 - 32.0 pg</td><td>[facility]</td><td ID="[id number]"/> 27.2 27 - 32 08/22/[address] [facility] CBC/DIFF <td ID="[id number]">MCHC</td><td><span style="flagData">31.2</span><span style="flagData"> (L)</span></td><td>32.0 - 36.0 g/dL</td><td>[facility]</td><td ID="[id number]"/> 31.2 32 - 36 08/22/[address] [facility] CBC/DIFF <td ID="[id number]">RDW</td><td><span style="flagData">47.0</span><span style="flagData"> (H)</span></td><td>36.4 - 46.3 fL</td><td>[facility]</td><td ID="[id number]"/> 47.0 36.4 - 46.3 08/22/[address] [facility] CBC/DIFF <td ID="[id number]">Platelets</td><td>183</td><td>150 - 400 K/uL</td><td>[facility]</td><td ID="[id number]"/> 183 150 - 400 08/22/[address] [facility] CBC/DIFF <td ID="[id number]">Mean Platelet Volume</td><td>9.8</td><td>9.4 - 12.4 fL</td><td>[facility]</td><td ID="[id number]"/> 9.8 9.4 - 12.4 08/22/[address] [facility] CBC/DIFF Percent NRBC 0.0 08/22/[address] [facility] CBC/DIFF Absolute NRBC 0.00 08/22/[address] [facility] CBC/DIFF <td ID="[id number]">Neutrophils</td><td><span style="flagData">92.2</span><span style="flagData"> (H)</span></td><td>34.0 - 70.0 %</td><td>[facility]</td><td ID="[id number]"/> 92.2 34 - 70 08/22/[address] [facility] CBC/DIFF <td ID="[id number]">Lymphs</td><td><span style="flagData">3.7</span><span style="flagData"> (L)</span></td><td>20.0 - 50.0 %</td><td>[facility]</td><td ID="[id number]"/> 3.7 20 - 50 08/22/[address] [facility] CBC/DIFF <td ID="[id number]">Monocytes</td><td><span style="flagData">2.8</span><span style="flagData"> (L)</span></td><td>5.0 - 12.0 %</td><td>[facility]</td><td ID="[id number]"/> 2.8 5 - 12 08/22/[address] [facility] CBC/DIFF <td ID="[id number]">Eos</td><td>0.9</td><td>0.7 - 5.0 %</td><td>[facility]</td><td ID="[id number]"/> 0.9 0.7 - 5 08/22/[address] [facility] CBC/DIFF <td ID="[id number]">Basos</td><td>0.1</td><td>0.1 - 1.2 %</td><td>[facility]</td><td ID="[id number]"/> 0.1 0.1 - 1.2 08/22/[address] [facility] CBC/DIFF Immature Granulocytes 0.3 0.0 - 0.5 08/22/[address] [facility] CBC/DIFF Neutrophils (Absolute) 7.20 1.56 - 6.13 08/22/[address] [facility] CBC/DIFF Lymphs (Absolute) 0.29 1.18 - 3.74 08/22/[address] [facility] CBC/DIFF Monocytes(Absolute) 0.22 0.24 - 0.36 08/22/[address] [facility] CBC/DIFF Eos (Absolute) 0.07 0.04 - 0.36 08/22/[address] [facility] CBC/DIFF Baso (Absolute) 0.01 0.01 - 0.08 08/22/[address] [facility] CBC/DIFF Immature Grans (Abs) 0.02 0 - 0.03 08/22/[address] [facility] CBC/DIFF Lab Interpretation Abnormal 08/22/[address] [facility] POCT URINE DIPSTICK - Control [facility] - Lab Interpretation Normal 08/22/2018 [facility] POC CO2 POC 26 21 - 32 08/22/2018 Physician Notified [facility] POC Chloride POC 101 98 - 107 08/22/2018 [facility] POC Potassium POC 4.0 3.5 - 5.1 08/22/2018 [facility] POC Sodium POC 140 136 - 145 08/22/2018 [facility] POC <td ID="Sduhjh750483137Ksch5Jsvu">Glucose POC</td><td><span style="flagData">111</span><span style="flagData"> (H)</span></td><td>74 - 106 mg/dL</td><td>[facility]</td><td ID="[id number]"/> 111 74 - 106 08/22/2018 [facility] POC Urea Nitrogen POC 13 7 - 18 08/22/2018 [facility] POC Creatinine POC 0.7 0.6 - 1.3 08/22/2018 [facility] POC Calcium Ionized POC 1.18 1.15 - 1.29 08/22/2018 [facility] POC Hemoglobin POC 16.0 12 - 16 08/22/2018 [facility] POC Hematocrit POC 47.0 37 - 47 08/22/2018 [facility] POC GFR, Estimated >60 mL/min/1.73 m2 08/22/2018 [facility] POC GFR, Estim, Afr-Am >60 mL/min/1.73 m2 08/22/2018 [facility] POC Lab Interpretation Abnormal 08/22/2018 [facility] POC pH, Shane POC 7.39 7.33 - 7.43 08/22/2018 Physician Notified [facility] POC pCO2, Shane POC 42.9 38.0 - 50.0 08/22/2018 [facility] POC pO2, Shane POC 37 50 - 75 08/22/2018 [facility] POC Base Excess, Shane POC 0 08/22/2018 [facility] POC HCO3, Shane POC 25.7 22 - 26 08/22/2018 [facility] POC % Sat, Shane POC 70 60 - 85 08/22/2018 [facility] POC Lactic Acid, Shane POC 0.83 0.4 - 2 08/22/2018 [facility] POC TCO2, SHANE POC 27 21 - 32 08/22/2018 [facility] POC Lab Interpretation Abnormal 08/22/[address] 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 CHEM PANEL Lipase Lvl 144 73 - 393 05/23/2018 [facility] CHEM PANEL eGFR 90 05/23/2018 Result Comment: The eGFR is calculated using the CKD-EPI formula. In most young, healthy individuals the eGFR will be >90 mL/min/1.73m2. The eGFR declines with age. An eGFR of 60-89 may be normal in some populations, particularly the elderly, for whom the CKD-EPI formula has not been extensively validated. Use of the eGFR is not recommended in the following populations:

Individuals with unstable creatinine concentrations, including patients and those with serious co-morbid conditions.

Patients with extremes in muscle mass or diet.

The data above are obtained from the National Kidney Disease Education Program (NKDEP) which additionally recommends that when the eGFR is used in patients with extremes of body mass index for purposes of drug dosing, the eGFR should be multiplied by the estimated BMI. [facility] CHEM PANEL AST 25 0 - 37 05/23/2018 [facility] CHEM PANEL Alk Phos 91 39 - 136 05/23/2018 [facility] CHEM PANEL Bili Total 0.4 0.2 - 1.3 05/23/2018 [facility] CHEM PANEL CO2 28 24 - 32 05/23/2018 [facility] CHEM PANEL Calcium Lvl 8.7 8.5 - 10.5 05/23/2018 [facility] CHEM PANEL Albumin Lvl 3.6 3.5 - 5.0 05/23/2018 [facility] CHEM PANEL Total Protein 6.7 6.4 - 8.4 05/23/2018 [facility] CHEM PANEL ALT 39 0 - 65 05/23/2018 [facility] CHEM PANEL Potassium Lvl 3.7 3.5 - 5.1 05/23/2018 [facility] CHEM PANEL Sodium Lvl 141 135 - 145 05/23/2018 [facility] CHEM PANEL Chloride Lvl 107 95 - 109 05/23/2018 [facility] CHEM PANEL Glucose Lvl 88 70 - 99 05/23/2018 [facility] CHEM PANEL BUN 12 7 - 22 05/23/2018 [facility] CHEM PANEL Creatinine Lvl 0.79 0.50 - 1.40 05/23/2018 [facility] CHEM PANEL Globulin 3.1 2.7 - 4.2 05/23/2018 [facility] CHEM PANEL A/G Ratio 1.2 0.7 - 1.6 05/23/2018 [facility] CHEM PANEL B/C Ratio 15 6 - 25 05/23/2018 [facility] CHEM PANEL AGAP 9.7 10.0 - 20.0 05/23/2018 [facility] HEMATOLOGY MCHC 34.0 32.0 - 36.0 05/23/2018 [facility] HEMATOLOGY MCH 29.3 27.0 - 31.0 05/23/2018 [facility] HEMATOLOGY MCV 86.2 80.0 - 98.0 05/23/2018 [facility] HEMATOLOGY Platelet 180 133 - 450 05/23/2018 [facility] HEMATOLOGY RDW 15.1 11.5 - 14.5 05/23/2018 [facility] HEMATOLOGY MPV 7.8 7.4 - 10.4 05/23/2018 [facility] HEMATOLOGY Hct 37.4 36.0 - 48.0 05/23/2018 [facility] HEMATOLOGY Hgb 12.7 12.0 - 16.0 05/23/2018 [facility] HEMATOLOGY RBC 4.34 4.20 - 5.40 05/23/2018 [facility] HEMATOLOGY WBC 5.6 3.7 - 10.4 05/23/2018 [facility] HEMATOLOGY Lymphocytes # 1.6 1.0 - 5.5 05/23/2018 [facility] HEMATOLOGY Neutrophils # 3.5 1.5 - 8.1 05/23/2018 [facility] HEMATOLOGY Basophils 0.8 0.0 - 1.0 05/23/2018 [facility] HEMATOLOGY Eosinophils 1.9 0.0 - 4.0 05/23/2018 [facility] HEMATOLOGY Monocytes # 0.3 0.0 - 0.8 05/23/2018 [facility] HEMATOLOGY Lymphocytes 29.0 20.0 - 40.0 05/23/2018 [facility] HEMATOLOGY Segs 63.3 45.0 - 75.0 05/23/2018 [facility] HEMATOLOGY Monocytes 5.0 2.0 - 12.0 05/23/2018 [facility] HEMATOLOGY Eosinophils # 0.1 0.0 - 0.5 05/23/2018 [facility] CEFTAZIDIME:SUSC:PT:ISOLATE:ORDQN:JAYLON Culture: Urine 10,000 - 50,000 CFU/mL Serratia marcescens 50,000 - 100,000 CFU/mL Skin Pati 05/23/2018 [facility] CEFTAZIDIME:SUSC:PT:ISOLATE:ORDQN:JAYLON Serratia marcescens Serratia marcescens 05/23/2018 [facility] URINE AND STOOL UA Mucus Few /LPF None Seen /LPF 05/23/2018 [facility] URINE AND STOOL UA WBC 11-20 /HPF None Seen /HPF 05/23/2018 [facility] URINE AND STOOL UA RBC 21-50 /HPF 0 - 2 05/23/2018 [facility] URINE AND STOOL UA Sq Epi Few /LPF Few /LPF 05/23/2018 [facility] URINE AND STOOL UA Bacteria Moderate /HPF None Seen /HPF 05/23/2018 [facility] URINE AND STOOL UA Protein Negative (05/22/18 8:51 PM) Negative 05/23/2018 [facility] URINE AND STOOL UA pH 6.0 5.0 - 8.0 05/23/2018 [facility] URINE AND STOOL UA Turbidity Slight Cloudy (05/22/18 8:51 PM) Clear 05/23/2018 [facility] URINE AND STOOL UA Blood Large *ABN* (05/22/18 8:51 PM) Negative 05/23/2018 [facility] URINE AND STOOL UA Glucose Negative (05/22/18 8:51 PM) Negative 05/23/2018 [facility] URINE AND STOOL UA Ketones Trace *ABN* (05/22/18 8:51 PM) Negative 05/23/2018 [facility] URINE AND STOOL UA Bili Negative *NA* (05/22/18 8:51 PM) Negative 05/23/2018 [facility] URINE AND STOOL UA Urobilinogen 0.2 0.1 - 1.0 05/23/2018 [facility] URINE AND STOOL UA Leuk Est Moderate *ABN* (05/22/18 8:51 PM) Negative 05/23/2018 [facility] URINE AND STOOL UA Nitrite Negative (05/22/18 8:51 PM) Negative 05/23/2018 [facility] URINE AND STOOL UA Color Yellow *NA* (05/22/18 8:51 PM) Yellow 05/23/2018 [facility] URINE AND STOOL UA Spec Grav >=1.030 *ABN* (05/22/18 8:51 PM) <=1.030 05/23/2018 [facility] URINE CHEM U Preg Negative (05/22/18 8:51 PM) Negative 05/23/2018 [facility] CHEM PANEL A/G Ratio 0.9 0.7 - 1.6 04/30/2018 [facility] CHEM PANEL Globulin 3.8 2.7 - 4.2 04/30/2018 [facility] CHEM PANEL B/C Ratio 15 6 - 25 04/30/2018 [facility] CHEM PANEL AGAP 10.9 10.0 - 20.0 04/30/2018 [facility] CHEM PANEL eGFR 90 04/30/2018 Result Comment: The eGFR is calculated using the CKD-EPI formula. In most young, healthy individuals the eGFR will be >90 mL/min/1.73m2. The eGFR declines with age. An eGFR of 60-89 may be normal in some populations, particularly the elderly, for whom the CKD-EPI formula has not been extensively validated. Use of the eGFR is not recommended in the following populations:

Individuals with unstable creatinine concentrations, including patients and those with serious co-morbid conditions.

Patients with extremes in muscle mass or diet.

The data above are obtained from the National Kidney Disease Education Program (NKDEP) which additionally recommends that when the eGFR is used in patients with extremes of body mass index for purposes of drug dosing, the eGFR should be multiplied by the estimated BMI. [facility] CHEM PANEL Alk Phos 88 39 - 136 04/30/2018 [facility] CHEM PANEL Bili Total 0.6 0.2 - 1.3 04/30/2018 [facility] CHEM PANEL Glucose Lvl 80 70 - 99 04/30/2018 [facility] CHEM PANEL BUN 12 7 - 22 04/30/2018 [facility] CHEM PANEL Calcium Lvl 8.6 8.5 - 10.5 04/30/2018 [facility] CHEM PANEL Chloride Lvl 103 95 - 109 04/30/2018 [facility] CHEM PANEL CO2 28 24 - 32 04/30/2018 [facility] CHEM PANEL Potassium Lvl 3.9 3.5 - 5.1 04/30/2018 [facility] CHEM PANEL Sodium Lvl 138 135 - 145 04/30/2018 [facility] CHEM PANEL Creatinine Lvl 0.79 0.50 - 1.40 04/30/2018 [facility] CHEM PANEL Total Protein 7.2 6.4 - 8.4 04/30/2018 [facility] CHEM PANEL ALT 24 0 - 65 04/30/2018 [facility] CHEM PANEL Albumin Lvl 3.4 3.5 - 5.0 04/30/2018 [facility] CHEM PANEL AST 13 0 - 37 04/30/2018 [facility] ENDOCRINOLOGY S Preg Negative *NA* (04/30/18 11:20 AM) Negative 04/30/2018 [facility] HEMATOLOGY Segs 77.9 45.0 - 75.0 04/30/2018 [facility] HEMATOLOGY Eosinophils 1.6 0.0 - 4.0 04/30/2018 [facility] HEMATOLOGY Lymphocytes 13.5 20.0 - 40.0 04/30/2018 [facility] HEMATOLOGY Lymphocytes # 0.9 1.0 - 5.5 04/30/2018 [facility] HEMATOLOGY Basophils 0.1 0.0 - 1.0 04/30/2018 [facility] HEMATOLOGY Monocytes 6.9 2.0 - 12.0 04/30/2018 [facility] HEMATOLOGY Neutrophils # 5.0 1.5 - 8.1 04/30/2018 [facility] HEMATOLOGY Eosinophils # 0.1 0.0 - 0.5 04/30/2018 [facility] HEMATOLOGY Monocytes # 0.4 0.0 - 0.8 04/30/2018 [facility] HEMATOLOGY MPV 7.3 7.4 - 10.4 04/30/2018 [facility] HEMATOLOGY Hct 39.5 36.0 - 48.0 04/30/2018 [facility] HEMATOLOGY Hgb 13.4 12.0 - 16.0 04/30/2018 [facility] HEMATOLOGY RBC 4.71 4.20 - 5.40 04/30/2018 [facility] HEMATOLOGY WBC 6.4 3.7 - 10.4 04/30/2018 [facility] HEMATOLOGY MCV 84.0 80.0 - 98.0 04/30/2018 [facility] HEMATOLOGY RDW 14.5 11.5 - 14.5 04/30/2018 [facility] HEMATOLOGY MCHC 34.0 32.0 - 36.0 04/30/2018 [facility] HEMATOLOGY Platelet 213 133 - 450 04/30/2018 [facility] MCH 28.5 27.0 - 31.0 04/30/2018 [facility] RAPID Grp A Strep Scr Negative (04/30/18 10:20 AM) Negative 04/30/2018 [facility] VIRAL - SEROLOGY Influ B Negative (04/30/18 10:20 AM) Negative 04/30/2018 [facility] VIRAL - SEROLOGY Influ A Negative (04/30/18 10:20 AM) Negative 04/30/2018 [facility] URINE AND STOOL UA Trichomonas Moderate /HPF None Seen /HPF 03/23/2018 [facility] URINE AND STOOL UA Mucus Moderate /LPF None Seen /LPF 03/23/2018 [facility] URINE AND STOOL UA Leuk Est Moderate *ABN* (03/22/18 6:31 PM) Negative 03/23/2018 [facility] URINE AND STOOL UA Nitrite Negative (03/22/18 6:31 PM) Negative 03/23/2018 [facility] URINE AND STOOL UA RBC 3-5 /HPF 0 - 2 03/23/2018 [facility] URINE AND STOOL UA WBC 21-50 /HPF None Seen /HPF 03/23/2018 [facility] URINE AND STOOL UA Sq Epi Many /LPF Few /LPF 03/23/2018 [facility] URINE AND STOOL UA Bacteria Many /HPF None Seen /HPF 03/23/2018 [facility] URINE AND STOOL UA Ketones Negative *NA* (03/22/18 6:31 PM) Negative 03/23/2018 [facility] URINE AND STOOL UA Glucose Negative (03/22/18 6:31 PM) Negative 03/23/2018 [facility] URINE AND STOOL UA Blood Negative (03/22/18 6:31 PM) Negative 03/23/2018 [facility] URINE AND STOOL UA Bili Negative *NA* (03/22/18 6:31 PM) Negative 03/23/2018 [facility] URINE AND STOOL UA Urobilinogen 0.2 0.1 - 1.0 03/23/2018 [facility] URINE AND STOOL UA Color Yellow *NA* (03/22/18 6:31 PM) Yellow 03/23/2018 [facility] URINE AND STOOL UA Turbidity Slight Cloudy (03/22/18 6:31 PM) Clear 03/23/2018 [facility] URINE AND STOOL UA Protein Negative (03/22/18 6:31 PM) Negative 03/23/2018 [facility] URINE AND STOOL UA pH 7.5 5.0 - 8.0 03/23/2018 [facility] URINE AND STOOL UA Spec Grav 1.020 <=1.030 03/23/2018 [facility] URINE CHEM U Preg Negative (03/22/18 6:31 PM) Negative 03/23/2018 [facility] Culture: Urine No Growth 03/23/2018 [facility] URINE AND STOOL UA WBC 21-50 /HPF None Seen /HPF 09/26/2016 [facility] URINE AND STOOL UA Sq Epi Few /LPF Few /LPF 09/26/2016 [facility] URINE AND STOOL UA CaOx Kari Many /HPF None Seen /HPF 09/26/2016 [facility] URINE AND STOOL UA Mucus Rare /LPF None Seen /LPF 09/26/2016 [facility] URINE AND STOOL UA Bacteria Occasional /HPF None Seen /HPF 09/26/2016 [facility] URINE AND STOOL UA RBC 0-2 /HPF 0 - 2 09/26/2016 [facility] URINE AND STOOL UA Glucose Negative (09/25/16 9:10 PM) Negative 09/26/2016 [facility] URINE AND STOOL UA Ketones Negative *NA* (09/25/16 9:10 PM) Negative 09/26/2016 [facility] URINE AND STOOL UA Bili Small *ABN* (09/25/16 9:10 PM) Negative 09/26/2016 [facility] URINE AND STOOL UA Blood Moderate *ABN* (09/25/16 9:10 PM) Negative 09/26/2016 [facility] URINE AND STOOL UA Urobilinogen 1.0 0.1 - 1.0 09/26/2016 [facility] URINE AND STOOL UA Nitrite Negative (09/25/16 9:10 PM) Negative 09/26/2016 [facility] URINE AND STOOL UA Leuk Est Moderate *ABN* (09/25/16 9:10 PM) Negative 09/26/2016 [facility] URINE AND STOOL UA Color Yellow *NA* (09/25/16 9:10 PM) Yellow 09/26/2016 [facility] URINE AND STOOL UA Spec Grav 1.030 <=1.030 09/26/2016 [facility] URINE AND STOOL UA Turbidity Cloudy *ABN* (09/25/16 9:10 PM) Clear 09/26/2016 [facility] URINE AND STOOL UA Protein Trace *ABN* (09/25/16 9:10 PM) Negative 09/26/2016 [facility] URINE AND STOOL UA pH 6.0 5.0 - 8.0 09/26/2016 [facility] Pathology Reports No Data Provided for This Section Diagnostic Reports Report Value Date Source Brain wo contrast CT Study: Brain wo contrast CT 11/16/2018 4:35 PM CDT Ordering Physician: Manuel Fabian MD Clinical Indication: - dizziness and shaking. Comparison: None TECHNIQUE: CT images are obtained from the foramen magnum to the vertex on a multidetector CT. Sagittal and coronal reformats are acquired. CT imaging performed at this location utilizes radiation dose optimization techniques which include one or more of the following: -Automated exposure control -Adjustment of the mA and/or kV according to patient size -Use of iterative reconstruction technique CT Radiation Dose DLP 1138 mGy-cm FINDINGS: Ventricles, sulci and basal cisterns are within normal limits for age. The simon- white junction is intact. No encephalomalacic changes are seen. There is no evidence for intracranial mass, mass effect or extra-axial fluid collection. There is no evidence for intracranial hemorrhage. Sellar and pineal regions as well as cerebellopontine angle cisterns are normal in appearance. The skull is intact. Visualized paranasal sinuses are clear. There is bilateral mastoid sclerosis, worse on the left than the right. Residual pneumatized mastoid air cells are grossly clear. 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 Orbital structures are grossly unremarkable. Lucency noted at the apex of the left 2nd maxillary incisor, compatible with dental caries. IMPRESSION: No intracranial pathology identified. The distal caries. SL: [id number] 11/16/2018 [facility] Chest 1view DX Patient Name: CÉSAR ANGEL : 1970; Age: 48 years Female MR: [id number] Study: Chest 1view DX Order Time: 11/16/2018 13:36 CDT Clinical Indication: - dizzy. COMPARISON: September 2018. 04/30/2018. FINDINGS: Views: 1 LUNGS: There is normal lung volume. Right lower lobe atelectasis. There are no pleural effusions. There is no pneumothorax. The pulmonary vasculature is normal. MEDIASTINUM: The cardiac silhouette is normal. The trachea is midline. BONES: There are no clinically significant osseous abnormalities noted. Postsurgical change to the left shoulder. IMPRESSION: No radiographic evidence of acute pulmonary disease. SL: [id number] 11/16/2018 [facility] Chest 1view DX EXAM: XR CHEST 1 VIEW DATE: 10/04/2018 19:49 CDT INDICATION: Shortness of breath. COMPARISON: 04/30/2018. TECHNIQUE: Frontal radiograph of the chest was obtained. FINDINGS: A right basilar opacity is identified. The cardiomediastinal silhouette is within normal limits. The costophrenic recesses are sharp and without effusion. No acute osseous abnormality is noted. IMPRESSION: Right basilar opacity may represent atelectasis or developing pneumonia. SL: [id number] 10/04/2018 [facility] Pulmonary Embolism CTA Clinical Indication: - SOB and cough X2 days; hx lung CA and right mid lung lobectomy 07/2018; Comparison: None TECHNIQUE: Sequential trans-axial images were obtained thru the chest and upper abdomen after administration of iodinated contrast. CTA protocol was performed with 3-D postprocessing reconstruction MIPs and volume rendering. Coronal and sagittal reconstructions were obtained. 100 cc of nonionic contrast material was used for the exam. Dose: AQN=906 mGy-cm CT imaging performed at this location utilizes radiation dose optimization techniques which include one or more of the following: -Automated exposure control -Adjustment of the mA and/or kV according to patient size -Use of iterative reconstruction technique FINDINGS: LUNG PARENCHYMA AND PLEURA: There are no lung nodules. There is no significant interstitial lung disease. There is a small right pleural effusion. There is no focal infiltrate. There is no pneumothorax. AIRWAY: The central airway is normal. . MEDIASTINUM: No significant mediastinal lymphadenopathy. HEART: There is no evidence of RV strain. The cardiac chambers are otherwise unremarkable. There is no pericardial effusion. VASCULAR STRUCTURES: There are no segmental pulmonary emboli noted. The main, right and left pulmonary arteries are normal. The great vessels are unremarkable. The thoracic aorta is is free of aneurysm or dissection.. The superior vena cava is unremarkable. OSSEOUS STRUCTURES: There are no definite significant osseous abnormalities seen. VISUALIZED UPPER ABDOMEN: The visualized upper abdomen is within normal limits. IMPRESSION: 1. No evidence of pulmonary emboli. 2. Small right pleural effusion. 3. No focal infiltrates or lymphadenopathy SL: [id number] 10/04/[address] [facility] [address] CHEST PE PROTOCOL IMPRESSION:1.No pulmonary embolus seen up to the segmental levels.2.Mild pulmonary interstitial edema with loculated small right pleuraleffusion and trace pericardial effusion.3.Postsurgical changes from right middle lobe resection. This [facility] radiology report is a preliminary resident dictation untilfinalized by an attending.Changes to this preliminary report may occurin an additional preliminary or finalized version. Dictated By: Chris Rubio DO, 08/23/2018 5:00 AM I have reviewed the study and agree with the findings in this report. Signed By: Maximiliano August MD, 08/23/2018 5:18 AM EXAM: CTA CHEST WITH CONTRAST DATE: 08/23/2018 4:56 AM INDICATION: PE suspected, intermediate prob, positive D-dimer. Nauseaand vomiting, intractability of vomiting not specified, unspecifiedvomiting type COMPARISON: Most recent chest x-ray and CT abdomen and pelvis from08/22/2018. TECHNIQUE: Volumetric CT of the chest is acquired during pulmonaryarterial phase following intravenous administration of contrast. Axial,sagittal, coronal, and oblique MIP reconstructions are created at theacquisition workstation. IV contrast: 100 mL of Omnipaque 350.DLP: 543 mGy-cm FINDINGS: The examination is limited by body habitus streak artifact. Lines and tubes: None. Lower neck: Unremarkable. Axilla: Clear. Airway: Patent. Lungs and pleura:Small loculated right pleural effusion with milddiffuse groundglass opacity in bilateral lung and associatedinterlobular septal thickening. Post surgical changes from right middlelobe resection. No left pleural effusion or pneumothorax. Mediastinum, espinoza and intrathoracic lymph nodes: Normal. Heart, pericardium and great vessels: Pulmonary emboli: None up to segmental levels.Pulmonary trunk: 2.9 cm.Ascending aorta: 3.4 cm.Heart: Normal. No right heart strain.Pericardium: Trace pericardial effusion. Upper abdomen: Postcholecystectomy. Otherwise unremarkable. Please tothe CT abdomen and pelvis scan from 08/22/2018 for findings under thediaphragm. Bones: No acute abnormality. Again seen degenerative disc disease [id number]. Soft tissues: Few foci of gas again seen along the right lateralsubcutaneous tissues of the lower chest, likely related to recentprocedure. Interface, Rad/Mammog In - 08/23/2018 5:23 AM CDTEXAM: CTA CHEST WITH CONTRAST DATE: 08/23/2018 4:56 [...] changes from right middle lobe resection. This [facility] radiology report is a preliminary resident dictation until finalized by an attending. Changes to this preliminary report may occur in an additional preliminary or finalized version. Dictated By: Chris Rubio DO, 08/23/2018 5:00 AM I have reviewed the study and agree with the findings in this report. Signed By: Maximiliano August MD, 08/23/2018 5:18 AM 08/23/[address] [facility] CT HEAD W/O CONTRAST IMPRESSION: No acute intracranial abnormality. This [facility] radiology report is a preliminary resident dictation untilfinalized by an attending.Changes to this preliminary report may occurin an additional preliminary or finalized version. Dictated By: Chris Rubio DO, 08/23/2018 4:49 AM I have reviewed the study and agree with the findings in this report. Signed By: Maximiliano August MD, 08/23/2018 5:07 AM EXAM: CT BRAIN WITHOUT CONTRAST DATE: 08/23/2018 4:45 AM INDICATION: Headache, chronic, neuro deficit. COMPARISON: None. TECHNIQUE: Axial CT images of the brain are acquired without contrast.Sagittal and coronal reformats.IV contrast: None.DLP: 867 mGy-cm FINDINGS: There is no edema, hemorrhage, mass lesion or other acute intracranialabnormality. There is no fracture of the skull, skull base, or visible facial bones. The paranasal sinuses and orbits are unremarkable. Interface, Rad/Mammog In - 08/23/2018 5:12 AM CDTEXAM: CT BRAIN WITHOUT CONTRAST DATE: 08/23/2018 4:45 [...] IMPRESSION IMPRESSION: No acute intracranial abnormality. This [facility] radiology report is a preliminary resident dictation until finalized by an attending. Changes to this preliminary report may occur in an additional preliminary or finalized version. Dictated By: Chris Rubio DO, 08/23/2018 4:49 AM I have reviewed the study and agree with the findings in this report. Signed By: Maximiliano August MD, 08/23/2018 5:07 AM 08/23/[address] [facility] CT ABDOMEN AND PELVIS CONTRAST IMPRESSION:1.No acute CT abnormality in the abdomen and pelvis.2.Small right pleural effusion.3.Few foci of gas along the right lateral subcutaneous tissues of theupper abdomen may relate to recent injection. This [facility] radiology report is a preliminary resident dictation untilfinalized by an attending.Changes to this preliminary report may occurin an additional preliminary or finalized version. Dictated By: Chris Rubio DO, 08/22/2018 11:16 PM I have reviewed the study and agree with the findings in this report. Signed By: Maximiliano August MD, 08/22/2018 11:24 PM EXAM: CT ABDOMEN AND PELVIS WITH CONTRAST DATE: 08/22/2018 11:06 PM INDICATION: Abd pain, unspecified. Nausea and vomiting, intractabilityof vomiting not specified, unspecified. COMPARISON: None. TECHNIQUE: Volumetric CT of the abdomen and pelvi s is acquired followingthe intravenous administration of contrast. Axial, coronal and sagittalimages are provided.IV contrast: 150 mL of Omnipaque 300.Enteric contrast: None.DLP: 1391 mGy-cm FINDINGS: Lines, tubes and hardware: None. Lower thorax: Small pleural effusion on the right with minimalassociated passive atelectasis of the right lower lobe. Liver: Normal. Biliary tree: No intra- or extrahepatic biliary ductal dilation. Gallbladder: Surgically absent. Pancreas: Normal. Spleen: Normal. Adrenals: Normal. Kidneys and ureters: 1.8 cm well-circumscribed benign-appearing rightsuperior pole hypo density, 1.8 cm, statistically likely representingbenign cyst. No hydronephrosis or renal calculi. Bladder: Normal. Reproductive organs: Uterus and adnexa are unremarkable. Gastrointestinal tract:Stomach: Normal.Small bowel: Incidentally noted duodenal diverticulum at the firstportion of duodenum. No small bowel obstruction.Colon: Normal. Appendix: Normal. Peritoneum, mesentery and retroperitoneum: No free air, ascites orloculated fluid. Lymph nodes: Normal. Vasculature: Aorta and branches: Normal.IVC and veins: Normal.Portal vasculature: Normal. Bones: No acute abnormality. Degenerative disc disease at T11-T12 withSchmorl's nodes and vacuum phenomenon. Soft tissues: Small fat- containing umbilical hernia. Few foci of gasalong the right lateral subcutaneous tissues of the upper abdomen. Interface, Rad/Mammog In - 08/22/2018 11:30 PM CDTEXAM: CT ABDOMEN AND PELVIS WITH CONTRAST DATE: [...] abdomen may relate to recent injection. This [facility] radiology report is a preliminary resident dictation until finalized by an attending. Changes to this preliminary report may occur in an additional preliminary or finalized version. Dictated By: Chris Rubio DO, 08/22/2018 11:16 PM I have reviewed the study and agree with the findings in this report. Signed By: Maximiliano August MD, 08/22/2018 11:24 PM 08/23/[address] [facility] XRAY CHEST 2 VIEWS IMPRESSION: Mild right lower lung airspace opacity representingatelectasis or pneumonia. Small right pleural effusion. Signed By: Cecilia Michaels MD, 08/22/2018 4:56 PM EXAM: XR CHEST 2 VIEWS DATE: 08/08 4:33 PM INDICATION: s/p RML resection + cough. Nausea and vomiting,intractability of vomiting not specified, unspecified vomiting type COMPARISON: 08/17/2017 TECHNIQUE: PA and lateral chest radiographs FINDINGS: Lines, tubes and hardware: Surgical clips overlie the gallbladder fossa. Lungs and pleura: Mild airspace opacity is present in the right lowerlung laterally. A small right pleural effusion is present, the leftcostophrenic sulcus is clear. Heart and mediastinum: The heart size is normal. The mediastinalcontours are normal. Bones: No acute bony abnormality. Prior resection of the right d istalclavicle is present. Interface, Rad/Mammog In - 08/22/2018 5:16 PM CDTEXAM: XR CHEST 2 VIEWS DATE: 08/22/2018 4:33 [...] By: Cecilia Michaels MD, 08/22/2018 4:56 PM 08/22/[address] 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 COMPARISON: None. TECHNIQUE: Helical CT imaging of the abdomen and pelvis performed from lung bases through the lesser trochanters without intravenous contrast. Axial, sagittal, and coronal multiplanar reconstructions were provided. IV contrast: None. CT Radiation Dose: YDF=801 mGy-cm FINDINGS: Evaluation of the solid organs is limited without intravenous contrast. LOWER CHEST: Lobulated 2.3 cm nodule within the right middle lobe, series 4 image 3. The heart is unremarkable without evidence for a pericardial effusion. LIVER: Unremarkable. GALLBLADDER/BILIARY: The patient is status post cholecystectomy. PANCREAS: Unremarkable SPLEEN: Unremarkable ADRENALS: Unremarkable KIDNEYS AND URETERS: No obstructing calculi or hydronephrosis. BLADDER: Unremarkable STOMACH: Unremarkable. BOWEL: The small bowel is normal in course and caliber without focal wall thickening or evidence for obstruction. The colon is unremarkable. APPENDIX: The appendix is visualized and unremarkable. PELVIS: No pelvic masses are identified. PERITONEUM: No ascites or free air. LYMPH NODES: Unremarkable. VASCULAR: Unremarkable. OSSEOUS STRUCTURES: Degenerative changes of the spine without acute osseous abnormality. SOFT TISSUES: Unremarkable IMPRESSION: 1. No obstructing calculi or hydronephrosis. 2. Lobulated 2.3 cm nodule within the right middle lobe. Follow-up per Fleischner criteria. 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 No pleural effusion or pneumothorax. The heart size is mildly enlarged. Midline trachea. Widening of the right acromioclavicular joint. Lynden screw within the left humeral head. IMPRESSION: Right middle lobe nodular opacity may represent pneumonia. SL: BERTHA1-Rommel 04/30/2018 [facility] Spine lumbar series DX Lumbar spine 5 views: There is normal alignment without fracture or dislocation. There is mild sclerosis of the superior endplate of L2 with mild spurring at the L1-L2 level. Mild superior endplate irregularity at T12 is seen with vacuum phenomenon disc space. There is disc space narrowing L5-S1 with bilateral facet arthropathy at this level. The other lumbar disc spaces are normal height. The SI joints are normal. There are no significant soft tissue abnormalities. IMPRESSION: Degenerative changes without acute radiographic abnormalities in the lumbar spine. SUPRIYA DLAWRENCE-PC 03/22/2018 [facility] Elbow 3 views DX Clinical Indication: - lateral right elbow pain Comparison: None FINDINGS: 4 views of the right elbow are performed. No acute fracture or dislocation. No aggressive osseous lesions. No evidence for a joint effusion. Regional soft tissues are unremarkable. No soft tissue gas or radiopaque foreign bodies. If there is continued clinical concern, follow-up radiographs or magnetic resonance imaging may be beneficial. Impression: 1. No radiographic evidence for acute osseous injury of the right elbow. Clinical Indication: -Right shoulder pain Comparison: None FINDINGS: 3 views of the right shoulder are submitted. No acute fracture or dislocation. Foreshortened distal clavicle may be posttraumatic or postsurgical in nature. No aggressive osseous lesions. Normal glenohumeral and acromioclavicular joint alignment. The visualized right lung is clear. Regional soft tissues are unremarkable. If there is further concern, followup radiographs or MRI of the shoulder may be performed for complete assessment. IMPRESSION: 1. No radiographic evidence for acute osseous injury of the right shoulder. SL: 03/16/2018 [facility] Shoulder series DX Clinical Indication: - lateral right elbow pain Comparison: None FINDINGS: 4 views of the right elbow are performed. No acute fracture or dislocation. No aggressive osseous lesions. No evidence for a joint effusion. Regional soft tissues are unremarkable. No soft tissue gas or radiopaque foreign bodies. If there is continued clinical concern, follow-up radiographs or magnetic resonance imaging may be beneficial. Impression: 1. No radiographic evidence for acute osseous injury of the right elbow. Clinical Indication: -Right shoulder pain Comparison: None FINDINGS: 3 views of the right shoulder are submitted. No acute fracture or dislocation. Foreshortened distal clavicle may be posttraumatic or postsurgical in nature. No aggressive osseous lesions. Normal glenohumeral and acromioclavicular joint alignment. The visualized right lung is clear. Regional soft tissues are unremarkable. If there is further concern, followup radiographs or MRI of the shoulder may be performed for complete assessment. IMPRESSION: 1. No radiographic evidence for acute osseous injury of the right shoulder. SL: 03/16/2018 [facility] Consultation Notes No Data Provided for This Section Discharge Summaries No Data Provided for This Section History and Physicals No Data Provided for This Section Vital Signs Vital Sign Value Date Comments Source Systolic (mm Hg) 111 11/17/2018 [facility] Diastolic (mm Hg) 55 11/17/2018 [facility] Respitory Rate 18 11/17/2018 [facility] Heart Rate 89 11/17/2018 [facility] Temperature Oral (F) 97.9 F 11/16/2018 [facility] Systolic (mm Hg) 118 11/16/2018 [facility] Diastolic (mm Hg) 55 11/16/2018 [facility] Heart Rate 89 11/16/2018 [facility] Respitory Rate 18 11/16/2018 [facility] Heart Rate 91 11/16/2018 [facility] Respitory Rate 20 11/16/2018 [facility] Systolic (mm Hg) 128 11/16/2018 [facility] Diastolic (mm Hg) 70 11/16/2018 [facility] Weight 136.136 11/16/2018 [facility] Temperature Oral (F) 97.8 F 11/16/2018 [facility] BMI Calculated 53.16 11/16/2018 [facility] Height 160.02 cm 11/16/2018 [facility] Respitory Rate 20 10/05/2018 [facility] Systolic (mm Hg) 140 10/05/2018 [facility] Diastolic (mm Hg) 79 10/05/2018 [facility] Heart Rate 100 10/05/2018 [facility] Respitory Rate 22 10/05/2018 [facility] Heart Rate 98 10/05/2018 [facility] Systolic (mm Hg) 136 10/05/2018 [facility] Diastolic (mm Hg) 78 10/05/2018 [facility] Systolic (mm Hg) 134 10/05/2018 [facility] Diastolic (mm Hg) 86 10/05/2018 [facility] Respitory Rate 22 10/05/2018 [facility] Heart Rate 100 10/05/2018 [facility] Weight 133.455 10/04/2018 [facility] Height 160.02 cm 10/04/2018 [facility] BMI Calculated 52.12 10/04/2018 [facility] Temperature Oral (F) 97.1 F 10/04/2018 [facility] Systolic (mm Hg) 125 08/23/[address] [facility] Diastolic (mm Hg) 80 08/23/[address] [facility] Heart Rate 93 08/23/[address] [facility] Temperature Oral (F) 37.22 Alfreda 08/23/[address] [facility] Respitory Rate 20 08/23/[address] [facility] Weight 133.584 08/22/[address] [facility] Respitory Rate 18 06/15/2018 [facility] Heart Rate 87 06/15/2018 [facility] Systolic (mm Hg) 136 06/15/2018 [facility] Diastolic (mm Hg) 84 06/15/2018 [facility] Temperature Oral (F) 98.1 F 06/15/2018 [facility] Temperature Oral (F) 97.0 F 06/14/2018 [facility] Heart Rate 81 06/14/2018 [facility] Respitory Rate 16 06/14/2018 [facility] Systolic (mm Hg) 140 06/14/2018 [facility] Diastolic (mm Hg) 87 06/14/2018 [facility] Weight 136.364 06/14/2018 [facility] BMI Calculated 53.25 06/14/2018 [facility] Height 160.02 cm 06/14/2018 [facility] Systolic (mm Hg) 110 05/23/2018 [facility] Diastolic (mm Hg) 60 05/23/2018 [facility] Respitory Rate 18 05/23/2018 [facility] Heart Rate 78 05/23/2018 [facility] Height 160.02 cm 05/23/2018 [facility] Temperature Oral (F) 97.5 F 05/23/2018 [facility] Systolic (mm Hg) 137 05/23/2018 [facility] Diastolic (mm Hg) 68 05/23/2018 [facility] Heart Rate 98 05/23/2018 [facility] Respitory Rate 18 05/23/2018 [facility] BMI Calculated 55.92 05/23/2018 [facility] Weight 143.182 05/23/2018 [facility] Heart Rate 82 04/30/2018 [facility] Systolic (mm Hg) 137 04/30/2018 [facility] Diastolic (mm Hg) 74 04/30/2018 [facility] Respitory Rate 20 04/30/2018 [facility] Respitory Rate 20 04/30/2018 [facility] Systolic (mm Hg) 129 04/30/2018 [facility] Diastolic (mm Hg) 66 04/30/2018 [facility] Heart Rate 82 04/30/2018 [facility] Respitory Rate 20 04/30/2018 [facility] Heart Rate 89 04/30/2018 [facility] Systolic (mm Hg) 115 04/30/2018 [facility] Diastolic (mm Hg) 60 04/30/2018 [facility] Height 162.56 cm 04/30/2018 [facility] Weight 141.364 04/30/2018 [facility] BMI Calculated 53.49 04/30/2018 [facility] Temperature Oral (F) 98.3 F 04/30/2018 [facility] Weight 141 04/18/2018 [facility] BMI Calculated 55.06 04/18/2018 [facility] Temperature Oral (F) 98.2 F 04/18/2018 [facility] Height 160.02 cm 04/18/2018 [facility] Respitory Rate 18 04/18/2018 [facility] Heart Rate 80 04/18/2018 [facility] Systolic (mm Hg) 141 04/18/2018 [facility] Diastolic (mm Hg) 84 04/18/2018 [facility] Systolic (mm Hg) 143 03/23/2018 [facility] Diastolic (mm Hg) 66 03/23/2018 [facility] Heart Rate 84 03/23/2018 [facility] Respitory Rate 18 03/23/2018 [facility] Weight 139.091 03/22/2018 [facility] BMI Calculated 54.32 03/22/2018 [facility] Height 160.02 cm 03/22/2018 [facility] Respitory Rate 16 03/22/2018 [facility] Heart Rate 88 03/22/2018 [facility] Temperature Oral (F) 97.0 F 03/22/2018 [facility] Systolic (mm Hg) 166 03/22/2018 [facility] Diastolic (mm Hg) 89 03/22/2018 [facility] Systolic (mm Hg) 154 03/17/2018 [facility] Diastolic (mm Hg) 90 03/17/2018 [facility] Respitory Rate 18 03/17/2018 [facility] Heart Rate 89 03/17/2018 [facility] Temperature Oral (F) 97.9 F 03/17/2018 [facility] Height 160.02 cm 03/17/2018 [facility] Weight 137.841 03/17/2018 [facility] BMI Calculated 53.83 03/17/2018 [facility] Temperature Oral (F) 97.9 F 03/17/2018 [facility] Systolic (mm Hg) 151 03/17/2018 [facility] Diastolic (mm Hg) 77 03/17/2018 [facility] Heart Rate 96 03/17/2018 [facility] Respitory Rate 20 03/17/2018 [facility] Systolic (mm Hg) 126 09/29/2016 [facility] Diastolic (mm Hg) 58 09/29/2016 [facility] Heart Rate 72 09/29/2016 [facility] Respitory Rate 18 09/29/2016 [facility] Height 160.02 cm 09/29/2016 [facility] Weight 122.727 09/29/2016 [facility] BMI Calculated 47.93 09/29/2016 [facility] Temperature Oral (F) 98.1 F 09/29/2016 [facility] Respitory Rate 18 09/29/2016 [facility] Systolic (mm Hg) 116 09/29/2016 [facility] Diastolic (mm Hg) 82 09/29/2016 [facility] Heart Rate 75 09/29/2016 [facility] Systolic (mm Hg) 128 09/26/2016 [facility] Diastolic (mm Hg) 81 09/26/2016 [facility] Temperature Oral (F) 98 F 09/26/2016 [facility] Temperature Oral (F) 98.1 F 09/26/2016 [facility] Respitory Rate 19 09/26/2016 [facility] Systolic (mm Hg) 122 09/26/2016 [facility] Diastolic (mm Hg) 75 09/26/2016 [facility] Respitory Rate 16 09/26/2016 [facility] Heart Rate 76 09/26/2016 [facility] Temperature Oral (F) 97.4 F 09/26/2016 [facility] Systolic (mm Hg) 130 09/26/2016 [facility] Diastolic (mm Hg) 84 09/26/2016 [facility] Weight 122.727 09/26/2016 [facility] BMI Calculated 47.93 09/26/2016 [facility] Height 160.02 cm 09/26/2016 [facility] Respitory Rate 16 09/26/2016 [facility] Heart Rate 76 09/26/2016 [facility] Weight 130.455 10/11/2015 [facility] BMI Calculated 50.95 10/11/2015 [facility] Temperature Oral (F) 97.7 F 10/11/2015 [facility] Height 160.02 cm 10/11/2015 [facility] Systolic (mm Hg) 102 10/11/2015 [facility] Diastolic (mm Hg) 46 10/11/2015 [facility] Heart Rate 74 10/11/2015 [facility] Respitory Rate 16 10/11/2015 [facility] Weight 122.727 10/07/2015 [facility] BMI Calculated 47.93 10/07/2015 [facility] Temperature Oral (F) 97.6 F 10/07/2015 [facility] Heart Rate 92 10/07/2015 [facility] Systolic (mm Hg) 122 10/07/2015 [facility] Diastolic (mm Hg) 72 10/07/2015 [facility] Respitory Rate 18 10/07/2015 [facility] Height 160.02 cm 10/07/2015 [facility] Heart Rate 65 10/05/2015 [facility] Respitory Rate 16 10/05/2015 [facility] Systolic (mm Hg) 143 10/05/2015 [facility] Diastolic (mm Hg) 88 10/05/2015 [facility] Temperature Oral (F) 98.8 F 10/05/2015 [facility] Temperature Oral (F) 97.3 F 10/05/2015 [facility] Systolic (mm Hg) 111 10/05/2015 [facility] Diastolic (mm Hg) 59 10/05/2015 [facility] Respitory Rate 18 10/05/2015 [facility] Heart Rate 71 10/05/2015 [facility] Respitory Rate 18 10/03/2015 [facility] Heart Rate 85 10/03/2015 [facility] BMI Calculated 48.82 10/03/2015 [facility] Weight 125 10/03/2015 [facility] Height 160.02 cm 10/03/2015 [facility] Systolic (mm Hg) 108 10/03/2015 [facility] Diastolic (mm Hg) 71 10/03/2015 [facility] Temperature Oral (F) 98 F 10/03/2015 [facility] Heart Rate 92 10/03/2015 [facility] Respitory Rate 18 10/03/2015 [facility] Encounters Location Location Details Encounter Type Encounter Number Reason For Visit Attending Provider ADM Date DC Date Status Source OD [id number] 611.72 - LUMP OR MASS IN NATALIA BLANCO 03/30/2012 Active [facility] Outpatient Imaging [facility] [place] [place] Emergency Center [id number] Howie Vega 10/03/2015 10/03/2015 [facility] Emergency Center [id number] Kristofer Pena 10/05/2015 10/05/2015 [facility] [id number] Nany Blackwell 10/07/2015 10/07/2015 [facility] [id number] Farhat Cooney 10/11/2015 10/11/2015 [facility] Emergency [id number] Elsie Benavides 09/26/2016 09/26/2016 [facility] Emergency [id number] Blayne Marlow 09/29/2016 09/29/2016 [facility] Emergency Center ([id number]) [facility] Emergency [id number] Aris Malik MD 10/07/2017 10/07/2017 [facility] [id number] Manuel Fabian 03/17/2018 03/17/2018 [facility] [id number] Martin Stewartbismark 03/22/2018 03/23/2018 [facility] [id number] Kristofer Jimenezs 04/18/2018 04/18/2018 [facility] [id number] Addison Perezchelsea 04/30/2018 04/30/2018 [facility] [id number] Cece Del Rio 05/23/2018 05/23/2018 [facility] [id number] Krys Arie 06/14/2018 06/15/2018 [facility] Travel [id number] 08/22/[address] [facility] Emergency Center ([id number]) [facility] Emergency [id number] Smith Donahue DO 08/22/2018 08/23/2018 [facility] [id number] Manuel Fabian 10/04/2018 10/05/2018 [facility] Emergency [id number] Manuel Fabian 11/16/2018 11/17/2018 [facility] Procedures Procedure Code Date Perfomer Comments Source CT CHEST PE PROTOCOL 80884 08/23/2018 [facility] CT HEAD W/O CONTRAST 15729 08/23/2018 [facility] TROPONIN I POC [id number] 08/23/2018 [facility] TROPONIN I POC [id number] 08/23/2018 [facility] D-DIMER 34418 08/23/[address] [facility] CT ABDOMEN AND PELVIS CONTRAST 27052 08/23/2018 [facility] UA CHEMISTRIES [id number] 08/23/2018 [facility] URINALYSIS 13369 08/23/2018 [facility] LIVER PROFILE [id number] 08/23/2018 [facility] LIPASE 27230 08/23/2018 [facility] POCT URINE DIPSTICK - [id number] 08/23/2018 [facility] XRAY CHEST 2 VIEWS 97312 08/23/2018 [facility] VBG POC [id number] 08/23/[address] [facility] BMP POC [id number] 08/23/[address] [facility] CBC/DIFF [id number] 08/23/2018 [facility] 12 LEAD EKG 47416 08/23/2018 [facility] POCT URINE DIPSTICK - [id number] 10/07/2017 [facility] UA CHEMISTRIES [id number] 10/07/2017 [facility] Lobectomy [id number] [facility] Assessment and Plan No Data Provided for This Section Plan of Care Plan of Care Date Source IMM Influenza Seasonal Feb to July (>/=19 yrs) 02/07/[address] [facility] Breast Cancer Scrn (Yearly) [address] [facility] Cervical Cancer Scrn (3 Yrs) [address] [facility] Social History Social History Date Source Social History TypeResponse Smoking Status Never smoker; Concerns about tobacco use in household: No; Exposure to Tobacco Smoke None; Cigarette Smoking Last 365 Days No; Reg Smoking Cessation Counseling No entered on: 11/16/18 11/16/2018 [facility] Tobacco UseTypesPacks/DayYears UsedDate Former Smoker Cigarettes 0.5 5 Smokeless Tobacco: Former User Quit: 05/08/2010 Alcohol UseDrinks/Weekoz/WeekComments No Sex Assigned at BirthDate Recorded Not on file Job Start DateOccupationIndustry Not on file Not on file Not on file Travel HistoryTravel StartTravel End No recent travel history available. 08/22/[address] [facility] Social History TypeResponse Smoking Status Never smoker; Concerns about tobacco use in household: No; Exposure to Tobacco Smoke None; Cigarette Smoking Last 365 Days No; Reg Smoking Cessation Counseling No 09/29/2016 [facility] Social History TypeResponse Smoking Status Never smoker; Concerns about tobacco use in household: No; Exposure to Tobacco Smoke None; Cigarette Smoking Last 365 Days No; Reg Smoking Cessation Counseling No 10/11/2015 [facility] Family History Value Date Source Medical HistoryRelationNameComments Diabetes Father Hypertension Father Arthritis Mother Cancer Mother ` Pulmonary Mother Cancer Paternal Grandfather Diabetes Paternal Grandmother RelationNameStatusComments Father Maternal Grandfather Maternal Grandmother Mother Paternal Grandfather Paternal Grandmother 11/16/[address] [facility] Medical HistoryRelationNameComments Diabetes Father Hypertension Father Arthritis Mother Cancer Mother ` Pulmonary Mother Cancer Paternal Grandfather Diabetes Paternal Grandmother RelationNameStatusComments Father Maternal Grandfather Maternal Grandmother Mother Paternal Grandfather Paternal Grandmother 10/04/[address] [facility] Medical HistoryRelationNameComments Diabetes Father Hypertension Father Arthritis Mother Cancer Mother ` Pulmonary Mother Cancer Paternal Grandfather Diabetes Paternal Grandmother RelationNameStatusComments Father Maternal Grandfather Maternal Grandmother Mother Paternal Grandfather Paternal Grandmother 08/23/[address] [facility] Advance Directives No Data Provided for This Section Functional Status No Data Provided for This Section
--- OUTSIDE RECORDS SUMMARY | 2018-12-20 11:51 | XMS REPORT | Summary of Care ---
Author Author [facility] Organization [facility] Address Unknown Phone Unavailable Encounter [facility](FIN) [id number] Date(s): 03/22/18 - 03/22/18 [facility] [address] [place] [place] [address]- [phone] Encounter Diagnosis Acute bilateral low back pain (Discharge Diagnosis) - 03/22/18 Acute UTI (Discharge Diagnosis) - 03/22/18 Low back pain (Final) - 03/29/18 Nausea (Final) - Bipolar disorder, unspecified (Final) - Gastro-esophageal reflux disease without esophagitis (Final) - Overexertion from prolonged static or awkward postures, initial encounter (Final) - Discharge Disposition: Home or Self Care Attending Physician: Martin Magaña DO Vital Signs Most recent to 1 2 oldest [Reference Range]: Height 160.02 cm (03/22/18 5:06 PM) Temperature Oral 97.0 DegF [96.4-99.1 DegF] (03/22/18 5:06 PM) Blood Pressure 143/66 mmHg 166/89 mmHg [90-140/60-90 mmHg] *HI* *HI* (03/22/18 6:42 PM) (03/22/18 5:06 PM) Respiratory Rate 18 BRMIN 16 BRMIN [14-20 BRMIN] (03/22/18 6:42 PM) (03/22/18 5:06 PM) Peripheral Pulse 84 bpm 88 bpm Rate [60-100 bpm] (03/22/18 6:42 PM) (03/22/18 5:06 PM) Weight 139.091 kg (03/22/18 5:06 PM) Body Mass Index 54.32 m2 (03/22/18 5:06 PM) Problem List Condition Effective Dates Status Health Status Informant Bipolar Resolved disorder(Confirmed) GERD Resolved (gastroesophageal reflux disease)(Confirmed) Allergies, Adverse Reactions, Alerts Substance Reaction Severity Status penicillins Active droperidol Active Medications Cipro 500 mg oral tablet 500 mg=1 tab, PO, Q12H, X 7 day, # 14 tab, 0 Refill(s) Start Date: 03/22/18 Stop Date: 03/29/18 Status: Completed Flexeril 10 mg oral tablet 10 mg=1 tab, PO, TID, PRN for spasm, X 7 day, # 21 tab, 0 Refill(s) Start Date: 03/22/18 Stop Date: 03/29/18 Status: Completed ketOROLAC 30 mg/mL injectable solution 60 mg, Route: IM, Drug form: INJ, ONCE, Dosing Weight 139.091, kg, Priority: STA T, Start date: 03/22/18 17:13:00 CONTROL ANALYST, Stop date: 03/22/18 17:13:00 CONTROL ANALYST Start Date: 03/22/18 Stop Date: 03/22/18 Status: Completed Motrin 800 mg oral tablet 800 mg=1 tab, PO, Q8H, PRN Pain, Take with food, X 7 day, # 21 tab, 0 Refill(s) Start Date: 03/22/18 Stop Date: 03/29/18 Status: Completed Results Most recent to 1 oldest [Reference Range]: UA Bacteria [None Many /HPF Seen /HPF] (03/22/18 6:31 PM) UA Bili [Negative] Negative *NA* (03/22/18 6:31 PM) UA Blood [Negative] Negative (03/22/18 6:31 PM) UA Color [Yellow] Yellow *NA* (03/22/18 6:31 PM) UA Glucose Negative [Negative] (03/22/18 6:31 PM) UA Ketones Negative [Negative] *NA* (03/22/18 6:31 PM) UA Leuk Est Moderate [Negative] *ABN* (03/22/18 6:31 PM) UA Mucus [None Seen Moderate /LPF /LPF] *ABN* (03/22/18 6:31 PM) UA Nitrite Negative [Negative] (03/22/18 6:31 PM) UA pH [5.0-8.0] 7.5 (03/22/18 6:31 PM) U Preg [Negative] Negative (03/22/18 6:31 PM) UA Protein Negative [Negative] (03/22/18 6:31 PM) UA RBC [0-2 /HPF] 3-5 /HPF *ABN* (03/22/18 6:31 PM) UA Spec Grav 1.020 [<=1.030] (03/22/18 6:31 PM) UA Sq Epi [Few /LPF] Many /LPF *ABN* (03/22/18 6:31 PM) UA Trichomonas [None Moderate /HPF Seen /HPF] *ABN* (03/22/18 6:31 PM) UA Turbidity [Clear] Slight Cloudy (03/22/18 6:31 PM) UA Urobilinogen 0.2 EU/dL [0.1-1.0 EU/dL] (03/22/18 6:31 PM) UA WBC [None Seen 21-50 /HPF /HPF] *ABN* (03/22/18 6:31 PM) Microbiology Reports TEST: Culture: Urine STATUS: Auth (Verified) BODY SITE: SOURCE: Urine, Clean Catch COLLECTED DATE/TIME: 03/22/18 6:31 PM FINAL REPORT No Growth Immunizations No data available for this section Procedures Procedure Date Related Diagnosis Body Site Status Lobectomy Completed Social History Social History Type Response Smoking Status Never smoker; Exposure to Tobacco Smoke None; Cigarette Smoking Last 365 Days No; Reg Smoking Cessation Counseling No entered on: 10/04/18 Assessment and Plan No data available for this section
--- OUTSIDE RECORDS SUMMARY | 2018-12-20 11:51 | XMS REPORT | Summary of Care ---
Author Author [facility] Organization [facility] Address Unknown Phone Unavailable Encounter CHARLIE Betlran(ANGELINA) [id number] Date(s): 09/25/16 - 09/26/16 [facility] [address] [employer] provided by [facility] [place] [address]- Discharge Diagnosis: Acute UTI Discharge Disposition: Home or Self Care Attending Physician: Elsie Benavides MD Vital Signs 1 2 3 Most recent to oldest [Reference Range]: 160.02 cm (09/25/16 8:04 PM) Height 98 DegF (09/26/16 5:33 AM) 98.1 DegF (09/26/16 2:08 AM) 97.4 DegF (09/25/16 10:02 PM) Temperature Oral [96.4-99.1 DegF] 128/81 mmHg (09/26/16 5:33 AM) 122/75 mmHg (09/26/16 2:08 AM) 130/84 mmHg (09/25/16 10:02 PM) Blood Pressure [90-140/60-90 mmHg] 19 BRMIN (09/26/16 2:08 AM) 16 BRMIN (09/25/16 10:02 PM) 16 BRMIN (09/25/16 8:04 PM) Respiratory Rate [14-20 BRMIN] 76 bpm (09/25/16 10:02 PM) 76 bpm (09/25/16 8:04 PM) Peripheral Pulse Rate [60-100 bpm] 122.727 kg (09/25/16 8:04 PM) Weight 47.93 m2 (09/25/16 8:04 PM) Body Mass Index Problem List Condition Effective Dates Status Health Status Informant Bipolar Resolved disorder(Confirmed) GERD Resolved (gastroesophageal reflux disease)(Confirmed) Allergies, Adverse Reactions, Alerts Substance Reaction Severity Status droperidol Active penicillins Active Medications Keflex 500 mg oral capsule 500 mg=1 cap, PO, QID, X 10 day, # 40 cap, 0 Refill(s) Start Date: 09/26/16 Stop Date: 09/26/16 Status: Discontinued Keflex 500 mg oral capsule 500 mg=1 cap, PO, BID, X 7 day, # 14 cap, 0 Refill(s) Start Date: 09/26/16 Stop Date: 10/03/16 Status: Ordered Rocephin 1 gm, Route: IVPB, Drug form: PDR/INJ, ONCE, Dosing Weight 122.727, kg, Priority : STAT, Start date: 09/26/16 3:49:00 CDT, Duration: 1 doses or times, Stop date: 09/26/16 3:49:00 CDT, ABX Indication: Urinary Tract Infection Notes: (Same As: Rocephin).Use with 100 mL NS and infuse over 30 min MEDICA TION WASTE Product Size: 1000 mgProduct Wasted: ___ mg Start Date: 09/26/16 Stop Date: 09/26/16 Status: Completed Results URINE AND STOOL Most recent to 1 oldest [Reference Range]: UA Turbidity [Clear] Cloudy *ABN* (09/25/16 9:10 PM) UA Color [Yellow] Yellow *NA* (09/25/16 9:10 PM) UA pH [5.0-8.0] 6.0 (09/25/16 9:10 PM) UA Spec Grav 1.030 [<=1.030] (09/25/16 9:10 PM) UA Glucose Negative [Negative] (09/25/16 9:10 PM) UA Blood [Negative] Moderate *ABN* (09/25/16 9:10 PM) UA Ketones Negative [Negative] *NA* (09/25/16 9:10 PM) UA Protein Trace [Negative] *ABN* (09/25/16 9:10 PM) UA Urobilinogen 1.0 EU/dL [0.1-1.0 EU/dL] (09/25/16 9:10 PM) UA Bili [Negative] Small *ABN* (09/25/16 9:10 PM) UA Leuk Est Moderate [Negative] *ABN* (09/25/16 9:10 PM) UA Nitrite Negative [Negative] (09/25/16 9:10 PM) UA WBC [None Seen 21-50 /HPF /HPF] *ABN* (09/25/16 9:10 PM) UA RBC [0-2 /HPF] 0-2 /HPF (09/25/16 9:10 PM) UA Bacteria [None Occasional /HPF Seen /HPF] (09/25/16 9:10 PM) UA Sq Epi [Few /LPF] Few /LPF (09/25/16 9:10 PM) UA CaOx Kari [None Many /HPF Seen /HPF] *ABN* (09/25/16 9:10 PM) UA Mucus [None Seen Rare /LPF /LPF] (09/25/16 9:10 PM) Immunizations No data available for this section Procedures No data available for this section Social History Social History Type Response Smoking Status Never smoker; Concerns about tobacco use in household: No; Exposure to Tobacco Smoke None; Cigarette Smoking Last 365 Days No; Reg Smoking Cessation Counseling No Assessment and Plan No data available for this section
--- OUTSIDE RECORDS SUMMARY | 2018-12-20 11:51 | XMS REPORT | Summary of Care ---
Author Author [facility] Organization [facility] Address Unknown Phone Unavailable Encounter HQ Ruby(FIN) [id number] Date(s): 10/04/18 - 10/04/18 [facility] [address], [place], [place] [address]- [phone] Encounter Diagnosis Atypical chest pain (Discharge Diagnosis) - 10/04/18 Shortness of breath (Discharge Diagnosis) - 10/04/18 Discharge Disposition: Home or Self Care Attending Physician: Manuel Fabian MD Vital Signs 1 2 3 Most recent to oldest [Reference Range]: 160.02 cm (10/04/18 6:17 PM) Height 97.1 DegF (10/04/18 6:17 PM) Temperature Oral [96.4-99.1 DegF] 140/79 mmHg (10/04/18 10:32 PM) 136/78 mmHg (10/04/18 9:36 PM) 134/86 mmHg (10/04/18 8:30 PM) Blood Pressure [90-140/60-90 mmHg] 20 BRMIN (10/04/18 10:32 PM) 22 BRMIN *HI* (10/04/18 9:36 PM) 22 BRMIN *HI* (10/04/18 8:30 PM) Respiratory Rate [14-20 BRMIN] 100 bpm (10/04/18 10:32 PM) 98 bpm (10/04/18 9:36 PM) 100 bpm (10/04/18 8:30 PM) Peripheral Pulse Rate [60-100 bpm] 133.455 kg (10/04/18 6:17 PM) Weight 52.12 m2 (10/04/18 6:17 PM) Body Mass Index Problem List Condition Effective Dates Status Health Status Informant Bipolar Resolved disorder(Confirmed) GERD Resolved (gastroesophageal reflux disease)(Confirmed) Allergies, Adverse Reactions, Alerts Substance Reaction Severity Status penicillins Active droperidol Active Medications albuterol 0.083% inhalation solution 2.49 mg=3 mL, NEB, Q6H, PRN as needed for shortness of breath, # 30 ea, 0 Refill (s) Start Date: 10/04/18 Stop Date: 11/03/18 Status: Ordered albuterol 0.083% inhalation solution 2.49 mg, Route: NEB, ONCE, Dosing Weight 133.455, kg, Priority: STAT, Start date : 10/04/18 20:22:00 CDT, Stop date: 10/04/18 20:22:00 CDT Start Date: 10/04/18 Stop Date: 10/04/18 Status: Completed MDI Inhaler Spacer 1 ea, MISC, ONCE, Use as directed, # 1 ea, 0 Refill(s) Start Date: 10/04/18 Status: Ordered ProAir HFA 90 mcg/inh inhalation aerosol with adapter 2 puff, INHALATION, Q4H, PRN for wheezing, # 9 gm, 0 Refill(s) Start Date: 10/04/18 Status: Ordered Results Most recent to 1 oldest [Reference Range]: Neutrophils # 3.4 K/CMM [1.5-8.1 K/CMM] (10/04/18 7:31 PM) Lymphocytes # 2.0 K/CMM [1.0-5.5 K/CMM] (10/04/18 7:31 PM) Monocytes # [0.0-0.8 0.4 K/CMM K/CMM] (10/04/18 7:31 PM) Eosinophils # 0.1 K/CMM [0.0-0.5 K/CMM] (10/04/18 7:31 PM) eGFR 71 mL/min/1.73m2 1 *NA* (10/04/18 7:31 PM) A/G Ratio [0.7-1.6] 0.9 (10/04/18 7:31 PM) Albumin Lvl [3.5-5.0 3.6 g/dL g/dL] (10/04/18 7:31 PM) Alk Phos [39-136 111 unit/L unit/L] (10/04/18 7:31 PM) ALT [0-65 unit/L] 27 unit/L (10/04/18 PM) AGAP [10.0-20.0 10.1 mEq/L mEq/L] (10/04/18 PM) AST [0-37 unit/L] 16 unit/L (10/04/18 PM) B/C Ratio [6-25] 10 (10/04/18 PM) Basophils [0.0-1.0 0.4 % %] (10/04/18 PM) BUN [7-22 mg/dL] 10 mg/dL (10/04/18 PM) Calcium Lvl 9.2 mg/dL [8.5-10.5 mg/dL] (10/04/18 PM) Chloride Lvl [95-109 103 mEq/L mEq/L] (10/04/18 PM) CO2 [24-32 mEq/L] 30 mEq/L (10/04/18 PM) Creatinine Lvl 0.96 mg/dL [0.50-1.40 mg/dL] (10/04/18 PM) Eosinophils [0.0-4.0 1.7 % %] (10/04/18 PM) Globulin [2.7-4.2 3.8 g/dL g/dL] (10/04/18 PM) Glucose Lvl [70-99 87 mg/dL mg/dL] (10/04/18 PM) Hct [36.0-48.0 %] 42.3 % (10/04/18 PM) Hgb [12.0-16.0 g/dL] 14.0 g/dL (10/04/18 PM) Potassium Lvl 4.1 mEq/L [3.5-5.1 mEq/L] (10/04/18 PM) Lymphocytes 34.1 % [20.0-40.0 %] (10/04/18 PM) MCH [27.0-31.0 pg] 27.5 pg (10/04/18 PM) MCHC [32.0-36.0 33.1 g/dL g/dL] (10/04/18 7:31 PM) MCV [80.0-98.0 fL] 83.2 fL (10/04/18:31 PM) Monocytes [2.0-12.0 6.1 % %] (10/04/18 7:31 PM) MPV [7.4-10.4 fL] 7.9 fL (10/04/18:31 PM) Sodium Lvl [135-145 139 mEq/L mEq/L] (10/04/18:31 PM) Platelet [133-450 234 K/CMM K/CMM] (10/04/18:31 PM) Segs [45.0-75.0 %] 57.7 % (10/04/18: PM) Total Protein 7.4 g/dL [6.4-8.4 g/dL] (10/04/18:31 PM) RBC [4.20-5.40 5.08 M/CMM M/CMM] (10/04/18:31 PM) RDW [11.5-14.5 %] 15.4 % *HI* (10/04/18 7:31 PM) Bili Total [0.2-1.3 0.3 mg/dL mg/dL] (10/04/18 7:31 PM) Troponin-I <0.02 ng/mL [0.00-0.40 ng/mL] (10/04/18 7:31 PM) WBC [3.7-10.4 K/CMM] 6.0 K/CMM (10/04/18 7:31 PM) 1Result Comment: The eGFR is calculated using the [...] from the National Kidney Disease Education Program ( NKDEP) which additionally recommends that when the eGFR is used in patients with extremes of body mass index for purposes of drug dosing, the eGFR should be mul tiplied by the estimated BMI. Immunizations No data available for this section Procedures Procedure Date Related Diagnosis Body Site Status Lobectomy Completed Social History Social History Type Response Smoking Status Never smoker; Exposure to Tobacco Smoke None; Cigarette Smoking Last 365 Days No; Reg Smoking Cessation Counseling No entered on: 10/04/18 Assessment and Plan No data available for this section
--- OUTSIDE RECORDS SUMMARY | 2018-12-20 11:51 | XMS REPORT | Summary of Care ---
Author Author [facility] Organization [facility] Address Unknown Phone Unavailable Encounter CHARLIE Beltran(ANGELINA) [id number] Date(s): 09/28/16 - 09/29/16 [facility] [address] [employer] [address] provided by [facility] [employer] [facility] [place] [address]- Discharge Disposition: Not Treated Attending Physician: Blayne Marlow MD Vital Signs Most recent to 1 2 oldest [Reference Range]: Height 160.02 cm (09/28/16 11:29 PM) Temperature Oral 98.1 DegF [96.4-99.1 DegF] (09/28/16 11:29 PM) Blood Pressure 126/58 mmHg 116/82 mmHg [90-140/60-90 mmHg] (09/28/16 11:54 PM) (09/28/16 11:29 PM) Respiratory Rate 18 BRMIN 18 BRMIN [14-20 BRMIN] (09/28/16 11:54 PM) (09/28/16 11:29 PM) Peripheral Pulse 72 bpm 75 bpm Rate [60-100 bpm] (09/28/16 11:54 PM) (09/28/16 11:29 PM) Weight 122.727 kg (09/28/16 11:29 PM) Body Mass Index 47.93 m2 (09/28/16 11:29 PM) Problem List Condition Effective Dates Status Health Status Informant Bipolar Resolved disorder(Confirmed) GERD Resolved (gastroesophageal reflux disease)(Confirmed) Allergies, Adverse Reactions, Alerts Substance Reaction Severity Status droperidol Active penicillins Active Medications ketOROLAC 30 mg, 1 mL, Route: IM, Drug form: INJ, ONCE, Dosing Weight 122.727, kg, Priorit y: STAT, Start date: 09/28/16 23:54:00 CDT, Stop date: 09/28/16 23:54:00 CDT Notes: (Same as:Toradol) IV bolus must be given >15 seconds. Give IM administration slowly and deeply into the muscle.Not for use > 4 days MEDICATION WASTE Product Size: 30 mgProduct Wasted: ___ mg Start Date: 09/28/16 Stop Date: 09/28/16 Status: Ordered Results No data available for this section Immunizations No data available for this section Procedures No data available for this section Social History Social History Type Response Smoking Status Never smoker; Concerns about tobacco use in household: No; Exposure to Tobacco Smoke None; Cigarette Smoking Last 365 Days No; Reg Smoking Cessation Counseling No Assessment and Plan No data available for this section
--- OUTSIDE RECORDS SUMMARY | 2018-12-20 11:51 | XMS REPORT | Summary of Care ---
Author Author [facility] Organization [facility] Address Unknown Phone Unavailable Encounter HQ Ruby(FIN) [id number] Date(s): 03/16/18 - 03/16/18 [facility] [address], [place], [place] [address]- [phone] Encounter Diagnosis Acute pain of right shoulder (Discharge Diagnosis) - 03/16/18 Right shoulder strain (Discharge Diagnosis) - 03/16/18 Right elbow pain (Discharge Diagnosis) - 03/16/18 Strain of unspecified muscle, fascia and tendon at shoulder and upper arm level, right arm, initial encounter (Final) - 03/21/18 Pain in right elbow (Final) - Bipolar disorder, unspecified (Final) - Gastro-esophageal reflux disease without esophagitis (Final) - Personal history of urinary calculi (Final) - Sleep apnea, unspecified (Final) - Unspecified osteoarthritis, unspecified site (Final) - Allergy status to penicillin (Final) - Overexertion from strenuous movement or load, initial encounter (Final) - Discharge Disposition: Home or Self Care Attending Physician: Manuel Fabian MD Vital Signs Most recent to 1 2 oldest [Reference Range]: Height 160.02 cm (03/16/18 6:11 PM) Temperature Oral 97.9 DegF 97.9 DegF [96.4-99.1 DegF] (03/16/18 9:15 PM) (03/16/18 6:11 PM) Blood Pressure 154/90 mmHg 151/77 mmHg [90-140/60-90 mmHg] *HI* *HI* (03/16/18 9:15 PM) (03/16/18 6:11 PM) Respiratory Rate 18 BRMIN 20 BRMIN [14-20 BRMIN] (03/16/18 9:15 PM) (03/16/18 6:11 PM) Peripheral Pulse 89 bpm 96 bpm Rate [60-100 bpm] (03/16/18 9:15 PM) (03/16/18 6:11 PM) Weight 137.841 kg (03/16/18 6:11 PM) Body Mass Index 53.83 m2 (03/16/18 6:11 PM) Problem List Condition Effective Dates Status Health Status Informant Bipolar Resolved disorder(Confirmed) GERD Resolved (gastroesophageal reflux disease)(Confirmed) Allergies, Adverse Reactions, Alerts Substance Reaction Severity Status penicillins Active droperidol Active Medications ketOROLAC 60 mg, Route: IM, Drug form: INJ, ONCE, Dosing Weight 137.841, kg, Priority: STA T, Start date: 03/16/18 19:17:00 DEPUTY GENERAL COUNSEL, Stop date: 03/16/18 19:17:00 DEPUTY GENERAL COUNSEL Start Date: 03/16/18 Stop Date: 03/16/18 Status: Completed Ultram 50 mg oral tablet 1 - 2 tabs, PO, Q6H, PRN Pain Score 6-10, X 4 day, # 20 tab, 0 Refill(s) Start Date: 03/16/18 Stop Date: 03/20/18 Status: Completed Results No data available for this section Immunizations No data available for this section Procedures No data available for this section Social History Social History Type Response Smoking Status Never smoker; Concerns about tobacco use in household: No; Exposure to Tobacco Smoke None; Cigarette Smoking Last 365 Days No; Reg Smoking Cessation Counseling No entered on: 06/14/18 Assessment and Plan No data available for this section
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
--- OUTSIDE RECORDS SUMMARY | 2018-12-20 11:51 | XMS REPORT | Summary of Care ---
Author Author [facility] Organization [facility] Address Unknown Phone Unavailable Encounter HQ Ruby(FIN) [id number] Date(s): 04/30/18 - 04/30/18 [facility] [address], [place], [place] [address]- [phone] Encounter Diagnosis CAP (community acquired pneumonia) (Discharge Diagnosis) - 04/30/18 Cough (Discharge Diagnosis) - 04/30/18 Pneumonia, unspecified organism (Final) - 05/07/18 Headache (Final) - Allergy status to penicillin (Final) - Gastro-esophageal reflux disease without esophagitis (Final) - Discharge Disposition: Home or Self Care Attending Physician: Addison Beckett MD Vital Signs 1 2 3 Most recent to oldest [Reference Range]: 162.56 cm (04/30/18 10:17 AM) Height 98.3 DegF (04/30/18 10:17 AM) Temperature Oral [96.4-99.1 DegF] 137/74 mmHg (04/30/18 2:38 PM) 129/66 mmHg (04/30/18 12:46 PM) 115/60 mmHg (04/30/18 11:20 AM) Blood Pressure [90-140/60-90 mmHg] 20 BRMIN (04/30/18 2:38 PM) 20 BRMIN (04/30/18 12:46 PM) 20 BRMIN (04/30/18 11:20 AM) Respiratory Rate [14-20 BRMIN] 82 bpm (04/30/18 2:38 PM) 82 bpm (04/30/18 12:46 PM) 89 bpm (04/30/18 11:20 AM) Peripheral Pulse Rate [60-100 bpm] 141.364 kg (04/30/18 10:17 AM) Weight 53.49 m2 (04/30/18 10:17 AM) Body Mass Index Problem List Condition Effective Dates Status Health Status Informant Bipolar Resolved disorder(Confirmed) GERD Resolved (gastroesophageal reflux disease)(Confirmed) Allergies, Adverse Reactions, Alerts Substance Reaction Severity Status penicillins Active droperidol Active Medications Azithromycin 5 Day Dose Pack 250 mg oral tablet See Instructions, Take 2 tablets by mouth the first day then 1 tablet by mouth d ays 2-5., X 5 day, # 6 tab, 0 Refill(s) Start Date: 04/30/18 Stop Date: 05/05/18 Status: Completed ketOROLAC 15 mg/mL injectable solution 15 mg, Route: IVP, Drug form: INJ, ONCE, Dosing Weight 141.364, kg, Priority: ST AT, Start date: 04/30/18 11:47:00 CONSULTING SENIOR PRACTICE DIRECTOR, Stop date: 04/30/18 11:47:00 CONSULTING SENIOR PRACTICE DIRECTOR Start Date: 04/30/18 Stop Date: 04/30/18 Status: Completed NS (Bolus) IV 1,000 mL, 1,000 ml/hr, Infuse Over: 1 hr, Route: IV, 1,000, Drug form: INJ, ONCE , Priority: STAT, Dosing Weight 141.364 kg, Start date: 04/30/18 10:52:00 CONSULTING SENIOR PRACTICE DIRECTOR, S top date: 04/30/18 10:52:00 CONSULTING SENIOR PRACTICE DIRECTOR Start Date: 04/30/18 Stop Date: 04/30/18 Status: Completed Saline Flush 0.9% 10 mL, Route: IVP, Drug Form: INJ, Dosing Weight 141.364, kg, PRN, PRN Line Flus h, Start date: 04/30/18 10:51:00 CONSULTING SENIOR PRACTICE DIRECTOR, Duration: 1 day, Stop date: 05/01/18 10:50 :00 CONSULTING SENIOR PRACTICE DIRECTOR Notes: (Same as: BD Posiflush) Start Date: 04/30/18 Stop Date: 04/30/18 Status: Discontinued Results Most recent to 1 oldest [Reference Range]: Neutrophils # 5.0 K/CMM [1.5-8.1 K/CMM] (04/30/18 11:20 AM) Lymphocytes # 0.9 K/CMM [1.0-5.5 K/CMM] *LOW* (04/30/18 11:20 AM) Monocytes # [0.0-0.8 0.4 K/CMM K/CMM] (04/30/18 AM) Eosinophils # 0.1 K/CMM [0.0-0.5 K/CMM] (04/30/18 AM) eGFR 90 mL/min/1.73m2 1 *NA* (04/30/18 AM) Influ A [Negative] Negative (04/30/18 AM) Influ B [Negative] Negative (04/30/18 AM) A/G Ratio [0.7-1.6] 0.9 (04/30/18 AM) Albumin Lvl [3.5-5.0 3.4 g/dL g/dL] *LOW* (04/30/18 AM) Alk Phos [39-136 88 unit/L unit/L] (04/30/18 AM) ALT [0-65 unit/L] 24 unit/L (04/30/18 AM) AGAP [10.0-20.0 10.9 mEq/L mEq/L] (04/30/18 AM) AST [0-37 unit/L] 13 unit/L (04/30/18 AM) B/C Ratio [6-25] 15 (04/30/18 AM) Basophils [0.0-1.0 0.1 % %] (04/30/18 AM) BUN [7-22 mg/dL] 12 mg/dL (04/30/18 AM) Calcium Lvl 8.6 mg/dL [8.5-10.5 mg/dL] (04/30/18 AM) Chloride Lvl [95-109 103 mEq/L mEq/L] (04/30/18 AM) CO2 [24-32 mEq/L] 28 mEq/L (04/30/18 AM) Creatinine Lvl 0.79 mg/dL [0.50-1.40 mg/dL] (04/30/18 AM) Eosinophils [0.0-4.0 1.6 % %] (04/30/18 AM) Globulin [2.7-4.2 3.8 g/dL g/dL] (04/30/18 AM) Glucose Lvl [70-99 80 mg/dL mg/dL] (04/30/18 AM) Hct [36.0-48.0 %] 39.5 % (04/30/18 AM) Hgb [12.0-16.0 g/dL] 13.4 g/dL (04/30/18 AM) Potassium Lvl 3.9 mEq/L [3.5-5.1 mEq/L] (04/30/18 AM) Lymphocytes 13.5 % [20.0-40.0 %] *LOW* (04/30/18) MCH [27.0-31.0 pg] 28.5 pg (04/30/18 AM) MCHC [32.0-36.0 34.0 g/dL g/dL] (04/30/18 AM) MCV [80.0-98.0 fL] 84.0 fL (04/30/18 AM) Monocytes [2.0-12.0 6.9 % %] (04/30/18: AM) MPV [7.4-10.4 fL] 7.3 fL *LOW* (04/30/18 AM) Sodium Lvl [135-145 138 mEq/L mEq/L] (04/30/18 AM) Platelet [133-450 213 K/CMM K/CMM] (04/30/18 AM) Segs [45.0-75.0 %] 77.9 % *HI* (04/30/18 AM) Total Protein 7.2 g/dL [6.4-8.4 g/dL] (04/30/18 AM) RBC [4.20-5.40 4.71 M/CMM M/CMM] (04/30/18: AM) RDW [11.5-14.5 %] 14.5 % (04/30/18: AM) S Preg [Negative] Negative *NA* (04/30/18 AM) Grp A Strep Scr Negative [Negative] (04/30/18 10:20 AM) Bili Total [0.2-1.3 0.6 mg/dL mg/dL] (04/30/18 11:20 AM) WBC [3.7-10.4 K/CMM] 6.4 K/CMM (04/30/18 11:20 AM) 1Result Comment: The eGFR is calculated using [...] Smoking Cessation Counseling No entered on: 11/16/18 Assessment and Plan No data available for this section
--- OUTSIDE RECORDS SUMMARY | 2018-12-20 11:51 | XMS REPORT | Summary of Care ---
Author Author [facility] Organization [facility] Address Unknown Phone Unavailable Encounter HQ Ruby(FIN) [id number] Date(s): 05/22/18 - 05/22/18 [facility] [address], [place], [place] [address]- [phone] Encounter Diagnosis Incidental pulmonary nodule (Discharge Diagnosis) - 05/22/18 Acute lower urinary tract infection (Discharge Diagnosis) - 05/22/18 Flank pain (Discharge Diagnosis) - 05/22/18 Urinary tract infection, site not specified (Final) - 05/27/18 Solitary pulmonary nodule (Final) - Discharge Disposition: Home or Self Care Attending Physician: Cece Del Rio MD Vital Signs Most recent to 1 2 oldest [Reference Range]: Height 160.02 cm (05/22/18 8:40 PM) Temperature Oral 97.5 DegF [96.4-99.1 DegF] (05/22/18 8:40 PM) Blood Pressure 110/60 mmHg 137/68 mmHg [90-140/60-90 mmHg] (05/22/18 11:15 PM) (05/22/18 8:40 PM) Respiratory Rate 18 BRMIN 18 BRMIN [14-20 BRMIN] (05/22/18 11:15 PM) (05/22/18 8:40 PM) Peripheral Pulse 78 bpm 98 bpm Rate [60-100 bpm] (05/22/18 11:15 PM) (05/22/18 8:40 PM) Weight 143.182 kg (05/22/18 8:40 PM) Body Mass Index 55.92 m2 (05/22/18 8:40 PM) Problem List Condition Effective Dates Status Health Status Informant Bipolar Resolved disorder(Confirmed) GERD Resolved (gastroesophageal reflux disease)(Confirmed) Allergies, Adverse Reactions, Alerts Substance Reaction Severity Status penicillins Active droperidol Active Medications Bactrim SS 400 mg-80 mg oral tablet 2 tab, PO, BID, X 7 day, # 28 tab, 0 Refill(s) Start Date: 05/22/18 Stop Date: 05/22/18 Status: Discontinued cefdinir 300 mg oral capsule 300 mg=1 cap, PO, Q12H, X 10 day, # 20 cap, 0 Refill(s) Start Date: 05/22/18 Stop Date: 06/01/18 Status: Completed ketOROLAC 30 mg/mL injectable solution 30 mg, 1 mL, Route: IVP, Drug form: INJ, ONCE, Dosing Weight 143.182, kg, Priori ty: STAT, Start date: 05/22/18 20:58:00 OUTSIDE SALES ACCOUNT REPRESENTATIVE, Stop date: 05/22/18 20:58:00 OUTSIDE SALES ACCOUNT REPRESENTATIVE Notes: (Same as:Toradol) IV bolus must be given >15 seconds. Give IM administration slowly and deeply into the muscle.Not for use > 4 days MEDICATION WASTE Product Size: 30 mgProduct Wasted: ___ mg Start Date: 05/22/18 Stop Date: 05/22/18 Status: Completed Motrin 800 mg oral tablet 800 mg=1 tab, PO, Q8H, PRN Pain, Take with food, X 7 day, # 21 tab, 0 Refill(s) Start Date: 05/22/18 Stop Date: 05/29/18 Status: Completed NS (Bolus) IV 1,000 mL, 1,000 ml/hr, Infuse Over: 1 hr, Route: IV, 1,000, Drug form: INJ, ONCE , Priority: STAT, Dosing Weight 143.182 kg, Start date: 05/22/18 20:58:00 OUTSIDE SALES ACCOUNT REPRESENTATIVE, S top date: 05/22/18 20:58:00 OUTSIDE SALES ACCOUNT REPRESENTATIVE Start Date: 05/22/18 Stop Date: 05/22/18 Status: Completed Rocephin + sterile water 10 mL 1 gm, Route: IVP, ONCE, Dosing Weight 143.182, kg, Priority: STAT, Start date: 0 05/22/18 22:40:00 OUTSIDE SALES ACCOUNT REPRESENTATIVE, Stop date: 05/22/18 22:40:00 OUTSIDE SALES ACCOUNT REPRESENTATIVE, ABX Indication: Urinary Tract Infection Notes: (Same As: Rocephin). Start Date: 05/22/18 Stop Date: 05/22/18 Status: Discontinued Rocephin + sterile water 10 mL 1 gm, Route: IVP, ONCE, Dosing Weight 143.182, kg, Priority: STAT, Start date: 0 05/22/18 21:50:00 OUTSIDE SALES ACCOUNT REPRESENTATIVE, Stop date: 05/22/18 21:50:00 OUTSIDE SALES ACCOUNT REPRESENTATIVE, ABX Indication: Urinary Tract Infection Notes: (Same As: Rocephin).Use with 100 mL NS and infuse over 30 min MEDICA TION WASTE Product Size: 1000 mgProduct Wasted: ___ mg Start Date: 05/22/18 Stop Date: 05/22/18 Status: Completed Tylenol with Codeine #3 oral tablet 1 - 2 tab, PO, Q4H, PRN Pain, X 2 day, # 15 tab, 0 Refill(s) Start Date: 05/22/18 Stop Date: 05/24/18 Status: Completed Results Most recent to 1 oldest [Reference Range]: Neutrophils # 3.5 K/CMM [1.5-8.1 K/CMM] (05/22/18 9:38 PM) Lymphocytes # 1.6 K/CMM [1.0-5.5 K/CMM] (05/22/18 9:38 PM) Monocytes # [0.0-0.8 0.3 K/CMM K/CMM] (05/22/18 9:38 PM) Eosinophils # 0.1 K/CMM [0.0-0.5 K/CMM] (05/22/18 9:38 PM) eGFR 90 mL/min/1.73m2 1 *NA* (05/22/18 9:38 PM) A/G Ratio [0.7-1.6] 1.2 (05/22/18 9:38 PM) Albumin Lvl [3.5-5.0 3.6 g/dL g/dL] (05/22/18 9:38 PM) Alk Phos [39-136 91 unit/L unit/L] (05/22/18 9:38 PM) ALT [0-65 unit/L] 39 unit/L (05/22/18 9:38 PM) AGAP [10.0-20.0 9.7 mEq/L mEq/L] *LOW* (05/22/18 9:38 PM) AST [0-37 unit/L] 25 unit/L (05/22/18 9:38 PM) B/C Ratio [6-25] 15 (05/22/18 9:38 PM) Basophils [0.0-1.0 0.8 % %] (05/22/18 9:38 PM) BUN [7-22 mg/dL] 12 mg/dL (05/22/18 9:38 PM) Calcium Lvl 8.7 mg/dL [8.5-10.5 mg/dL] (05/22/18 9:38 PM) Chloride Lvl [95-109 107 mEq/L mEq/L] (05/22/18 9:38 PM) CO2 [24-32 mEq/L] 28 mEq/L (05/22/18 9:38 PM) Creatinine Lvl 0.79 mg/dL [0.50-1.40 mg/dL] (05/22/18:38 PM) Eosinophils [0.0-4.0 1.9 % %] (05/22/18 9:38 PM) Globulin [2.7-4.2 3.1 g/dL g/dL] (05/22/18 9:38 PM) Glucose Lvl [70-99 88 mg/dL mg/dL] (05/22/18 9:38 PM) Hct [36.0-48.0 %] 37.4 % (05/22/18 9:38 PM) Hgb [12.0-16.0 g/dL] 12.7 g/dL (05/22/18:38 PM) Potassium Lvl 3.7 mEq/L [3.5-5.1 mEq/L] (05/22/18 9:38 PM) Lipase Lvl [73-393 144 unit/L unit/L] (05/22/18 9:38 PM) Lymphocytes 29.0 % [20.0-40.0 %] (05/22/18 9:38 PM) MCH [27.0-31.0 pg] 29.3 pg (05/22/18 9:38 PM) MCHC [32.0-36.0 34.0 g/dL g/dL] (1/13/19 9:38 PM) MCV [80.0-98.0 fL] 86.2 fL (05/22/18 9:38 PM) Monocytes [2.0-12.0 5.0 % %] (05/22/18 9:38 PM) MPV [7.4-10.4 fL] 7.8 fL (05/22/18 9:38 PM) Sodium Lvl [135-145 141 mEq/L mEq/L] (05/22/18 9:38 PM) Platelet [133-450 180 K/CMM K/CMM] (05/22/18 9:38 PM) Segs [45.0-75.0 %] 63.3 % (05/22/18 9:38 PM) Total Protein 6.7 g/dL [6.4-8.4 g/dL] (05/22/18 9:38 PM) RBC [4.20-5.40 4.34 M/CMM M/CMM] (05/22/18 9:38 PM) RDW [11.5-14.5 %] 15.1 % *HI* (05/22/18 9:38 PM) Bili Total [0.2-1.3 0.4 mg/dL mg/dL] (05/22/18 9:38 PM) UA Bacteria [None Moderate /HPF Seen /HPF] (05/22/18 8:51 PM) UA Bili [Negative] Negative *NA* (05/22/18 8:51 PM) UA Blood [Negative] Large *ABN* (05/22/18 8:51 PM) UA Color [Yellow] Yellow *NA* (05/22/18 8:51 PM) UA Glucose Negative [Negative] (05/22/18 8:51 PM) UA Ketones Trace [Negative] *ABN* (05/22/18 8:51 PM) UA Leuk Est Moderate [Negative] *ABN* (05/22/18 8:51 PM) UA Mucus [None Seen Few /LPF /LPF] (05/22/18 8:51 PM) UA Nitrite Negative [Negative] (05/22/18 8:51 PM) UA pH [5.0-8.0] 6.0 (05/22/18 8:51 PM) U Preg [Negative] Negative (05/22/18 8:51 PM) UA Protein Negative [Negative] (05/22/18 8:51 PM) UA RBC [0-2 /HPF] 21-50 /HPF *ABN* (05/22/18 8:51 PM) UA Spec Grav >=1.030 [<=1.030] *ABN* (05/22/18 8:51 PM) UA Sq Epi [Few /LPF] Few /LPF (05/22/18 8:51 PM) UA Turbidity [Clear] Slight Cloudy (05/22/18 8:51 PM) UA Urobilinogen 0.2 EU/dL [0.1-1.0 EU/dL] (05/22/18 8:51 PM) UA WBC [None Seen 11-20 /HPF /HPF] *ABN* (05/22/18 8:51 PM) WBC [3.7-10.4 K/CMM] 5.6 K/CMM (05/22/18 9:38 PM) 1Result Comment: The eGFR is calculated [...] be mul tiplied by the estimated BMI. Microbiology Reports TEST: Culture: Urine STATUS: Auth (Verified) BODY SITE: SOURCE: Urine, Clean Catch COLLECTED DATE/TIME: 05/22/18 8:52 PM FINAL REPORT 10,000 - 50,000 CFU/mL Serratia marcescens 50,000 - 100,000 CFU/mL Skin Pati ORGANISM:Serratia marcescens Immunizations No data available for this section [...]
--- OUTSIDE RECORDS SUMMARY | 2018-12-20 11:51 | XMS REPORT | Summary of Care ---
Author Author [facility] Organization [facility] Address Unknown Phone Unavailable Encounter HQ Angeline_prachi(FIN) [id number] Date(s): 11/16/18 - 11/16/18 [facility] [address] [place], [place] [address]- [phone] Encounter Diagnosis Generalized weakness (Discharge Diagnosis) - 11/16/18 Near syncope (Discharge Diagnosis) - 11/16/18 Dizziness (Discharge Diagnosis) - 11/16/18 Discharge Disposition: Home or Self Care Attending Physician: Manuel Fabian MD Vital Signs 1 2 3 Most recent to oldest [Reference Range]: 160.02 cm (11/16/18 1:31 PM) Height 97.9 DegF (11/16/18 6:00 PM) 97.8 DegF (11/16/18 1:31 PM) Temperature Oral [96.4-99.1 DegF] 111/55 mmHg (11/16/18 7:00 PM) 118/55 mmHg (11/16/18 6:00 PM) 128/70 mmHg (11/16/18 5:00 PM) Blood Pressure [90-140/60-90 mmHg] 18 BRMIN (11/16/18 7:00 PM) 18 BRMIN (11/16/18 6:00 PM) 20 BRMIN (11/16/18 5:00 PM) Respiratory Rate [14-20 BRMIN] 89 bpm (11/16/18 7:00 PM) 89 bpm (11/16/18 6:00 PM) 91 bpm (11/16/18 5:00 PM) Peripheral Pulse Rate [60-100 bpm] 136.136 kg (11/16/18 1:31 PM) Weight 53.16 m2 (11/16/18 1:31 PM) Body Mass Index Problem List Condition Effective Dates Status Health Status Informant Bipolar Resolved disorder(Confirmed) GERD Resolved (gastroesophageal reflux disease)(Confirmed) Allergies, Adverse Reactions, Alerts Substance Reaction Severity Status penicillins Active droperidol Active Medications Reglan 10 mg oral tablet 10 mg, PO, Q6H, PRN nausea/dizziness/headache, X 5 day, # 20 tab, 0 Refill(s) Start Date: 11/16/18 Stop Date: 11/21/18 Status: Ordered Saline Flush 0.9% 10 mL, Route: IVP, Drug Form: INJ, Dosing Weight 136.136, kg, PRN, PRN Line Flus h, Start date: 11/16/18 15:05:00 CDT, Duration: 1 day, Stop date: 11/17/18 15:04 :00 CDT, 0 Notes: (Same as: BD Posiflush) Start Date: 11/16/18 Stop Date: 11/17/18 Status: Discontinued Sodium Chloride 0.9% (Bolus) IV 1,000 mL, 1000 ml/hr, Infuse Over: 1 hr, Route: IV, 1,000, Drug form: INJ, ONCE, Priority: STAT, Dosing Weight 136.136 kg, Start date: 11/16/18 15:05:00 CDT, St op date: 11/16/18 15:05:00 CDT, 0 Start Date: 11/16/18 Stop Date: 11/16/18 Status: Completed Sodium Chloride 0.9% (Bolus) IV 1,000 mL, 1000 ml/hr, Infuse Over: 1 hr, Route: IV, 1,000, Drug form: INJ, ONCE, Priority: STAT, Dosing Weight 136.136 kg, Start date: 11/16/18 16:36:00 CDT, St op date: 11/16/18 16:36:00 CDT, 0 Start Date: 11/16/18 Stop Date: 11/16/18 Status: Completed Results Most recent to 1 oldest [Reference Range]: Procalcitonin Lvl <0.05 ng/mL [0.00-0.10 ng/mL] (11/16/18 2:10 PM) Neutrophils # 3.1 K/CMM [1.5-8.1 K/CMM] (11/16/18 2:10 PM) Lymphocytes # 1.3 K/CMM [1.0-5.5 K/CMM] (11/16/18 2:10 PM) Monocytes # [0.0-0.8 0.3 K/CMM K/CMM] (11/16/18 2:10 PM) Eosinophils # 0.1 K/CMM [0.0-0.5 K/CMM] (11/16/18 2:10 PM) Basophils # [0.0-0.2 0.1 K/CMM K/CMM] (11/16/18 2:10 PM) eGFR 99 mL/min/1.73m2 1 *NA* (11/16/18 2:10 PM) A/G Ratio [0.7-1.6] 1.0 (11/16/18 2:10 PM) Albumin Lvl [3.5-5.0 3.5 g/dL g/dL] (11/16/18 2:10 PM) Alk Phos [39-136 95 unit/L unit/L] (11/16/18 2:10 PM) ALT [0-65 unit/L] 25 unit/L (11/16/18 2:10 PM) AGAP [10.0-20.0 10.9 mEq/L mEq/L] (11/16/18 2:10 PM) AST [0-37 unit/L] 13 unit/L (11/16/18 2:10 PM) B/C Ratio [6-25] 15 (11/16/18 2:10 PM) Basophils [0.0-1.0 1.3 % %] *HI* (11/16/18 2:10 PM) BUN [7-22 mg/dL] 11 mg/dL (11/16/18 2:10 PM) Calcium Lvl 9.0 mg/dL [8.5-10.5 mg/dL] (11/16/18 2:10 PM) Total CK [12-191 42 unit/L unit/L] (11/16/18 2:10 PM) Chloride Lvl [95-109 106 mEq/L mEq/L] (11/16/18 2:10 PM) CO2 [24-32 mEq/L] 28 mEq/L (11/16/18 2:10 PM) Creatinine Lvl 0.73 mg/dL [0.50-1.40 mg/dL] (11/16/18 2:10 PM) D-Dimer 0.45 ug/mL FEU *NA* (11/16/18 2:10 PM) Eosinophils [0.0-4.0 1.4 % %] (11/16/18 2:10 PM) Globulin [2.7-4.2 3.5 g/dL g/dL] (11/16/18 2:10 PM) Glucose Lvl [70-99 115 mg/dL mg/dL] *HI* (11/16/18 2:10 PM) Hct [36.0-48.0 %] 40.7 % (11/16/18 2:10 PM) Hgb [12.0-16.0 g/dL] 13.8 g/dL (11/16/18 2:10 PM) Potassium Lvl 3.9 mEq/L [3.5-5.1 mEq/L] (11/16/18 2:10 PM) Lactic Acid Lvl 1.8 mMol/L [0.5-2.2 mMol/L] (11/16/18 3:38 PM) Lymphocytes 27.1 % [20.0-40.0 %] (11/16/18 2:10 PM) MCH [27.0-31.0 pg] 28.1 pg (11/16/18 2:10 PM) MCHC [32.0-36.0 34.0 g/dL g/dL] (11/16/18 2:10 PM) MCV [80.0-98.0 fL] 82.6 fL (11/16/18 2:10 PM) Magnesium Lvl 2.0 mg/dL [1.8-2.4 mg/dL] (11/16/18 2:10 PM) Monocytes [2.0-12.0 6.3 % %] (11/16/18 2:10 PM) MPV [7.4-10.4 fL] 7.3 fL *LOW* (11/16/18 2:10 PM) Sodium Lvl [135-145 141 mEq/L mEq/L] (11/16/18 2:10 PM) Platelet [133-450 256 K/CMM K/CMM] (11/16/18 2:10 PM) Segs [45.0-75.0 %] 63.9 % (11/16/18 2:10 PM) Total Protein 7.0 g/dL [6.4-8.4 g/dL] (11/16/18 2:10 PM) RBC [4.20-5.40 4.93 M/CMM M/CMM] (11/16/18 2:10 PM) RDW [11.5-14.5 %] 15.7 % *HI* (11/16/18 2:10 PM) Bili Total [0.2-1.3 0.4 mg/dL mg/dL] (11/16/18 2:10 PM) Troponin-I <0.02 ng/mL [0.00-0.40 ng/mL] (11/16/18 2:10 PM) UA Bacteria [None Occasional /HPF Seen /HPF] (11/16/18 2:19 PM) UA Bili [Negative] Negative *NA* (11/16/18 2:19 PM) UA Blood [Negative] Negative (11/16/18 2:19 PM) UA Color [Yellow] Yellow *NA* (11/16/18 2:19 PM) UA Glucose [Negative Negative mg/dL mg/dL] (11/16/18 2:19 PM) UA Ketones [Negative Negative mg/dL mg/dL] *NA* (11/16/18:19 PM) UA Leuk Est Negative [Negative] (11/16/18 2:19 PM) UA Nitrite Negative [Negative] (11/16/18 2:19 PM) UA pH [5.0-8.0] 6.0 (11/16/18 2:19 PM) U Preg [Negative] Negative (11/16/18 2:10 PM) UA Protein [Negative Negative mg/dL mg/dL] (11/16/18 2:19 PM) UA RBC [0-2] None Seen (11/16/18 2:19 PM) UA Spec Grav 1.010 [<=1.030] (11/16/18 2:19 PM) UA Sq Epi [Few /LPF] Few /LPF (11/16/18 2:19 PM) UA Turbidity [Clear] Clear (11/16/18 2:19 PM) UA Urobilinogen 0.2 EU/dL [0.1-1.0 EU/dL] (11/16/18 2:19 PM) UA WBC [None Seen 3-5 /HPF /HPF] (11/16/18 2:19 PM) WBC [3.7-10.4 K/CMM] 4.9 K/CMM (11/16/18 2:10 PM) Micro? Performed (11/16/18 2:19 PM) 1Result Comment: The eGFR is calculated [...]
--- OUTSIDE RECORDS SUMMARY | 2018-12-20 11:52 | XMS REPORT | Clinical Summary ---
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 08/30/2018 Active ondansetron (ZOFRAN) 4 mg Take 1 tablet 10 tablet 0 tabletIndications: Nausea by mouth 9 and vomiting, every 8 hours intractability of as needed for vomiting not specified, up to 7 days unspecified vomiting type for Nausea. Active famotidine (PEPCID) 40 mg Take 1 tablet 10 tablet 0 tabletIndications: by mouth 9 Epigastric abdominal pain daily. 10/17/2017 cephALEXin (KEFLEX) 500 Take 1 40 capsule 0 mg capsuleIndications: capsule by 8 Acute pyelonephritis mouth 4 times daily for 10 days. Active Problems Problem Noted Date Acute pyelonephritis [...] Encounters Care Team Description Date Type Specialty Smith Donahue DO Pandya, Michael, MD Nausea and vomiting, intractability of vomiting not specified, unspecified vomiting type (Primary Dx); Epigastric abdominal pain; Temporal headache 08/22/2018 Emergency Emergency Medicine - 08/23/2018 08/22/2018 Travel Aris Malik Jr., MD Acute pyelonephritis (Primary Dx) 10/07/2017 Emergency Emergency Medicine after 08/22/2017 Immunizations Name Dates Previously Given Next Due Albuterol 0.083% (3ml) 12/31/2014 PPV [...] 5 Smokeless Tobacco: Former Quit: 05/08/2010 User Alcohol Use Drinks/Week oz/Week Comments No Sex Assigned at Date Recorded Not on file Industry Job Start Date Occupation Not on file Not on file Not on file Travel End Travel History Travel Start No recent travel history available. Last Filed Vital Signs Time Taken Vital Sign Reading 08/23/2018 7:00 AM CDT Blood Pressure 125/80 08/23/2018 7:00 AM CDT Pulse 93 08/23/2018 7:00 AM CDT Temperature 37.2 C (99 F) 08/23/2018 7:00 AM CDT Respiratory Rate 20 08/23/2018 7:00 AM CDT Oxygen Saturation 100% - Inhaled Oxygen - Concentration 08/22/2018 3:05 PM CDT Weight 133.6 kg (294 lb 8 oz) - Height - 09/10/2015 8:42 AM CDT Body Mass Index 53.86 Plan of Treatment Health Maintenance Due Date Last Done Comments Cervical Cancer Scrn (3 1992 Yrs) Breast Cancer Scrn 2011 (Yearly) IMM Influenza Seasonal 02/07/2019Feb to March (>/=19 yrs) Procedures Comments Procedure Name Priority [...] specified, unspecified vomiting type Epigastric abdominal pain UA CHEMISTRIES STAT 08/22/2018 9:40 PM CDT LIPASE STAT [...] LEAD EKG Routine 08/22/2018 3:11 PM CDT POCT URINE DIPSTICK - STAT 10/07/2017 12:27 PM CDT UA CHEMISTRIES STAT 10/07/2017 11:34 AM CDT after 08/22/2017 Results * CT CHEST PE PROTOCOL (08/23/2018 4:54 AM CDT) Impressions Performed At IMPRESSION: SMS 1.No pulmonary embolus seen up to the segmental levels. 2.Mild pulmonary interstitial edema with loculated small right pleural effusion and trace pericardial effusion. 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 This [facility] radiology report is a preliminary resident dictation until finalized by an attending.Changes to this preliminary report may occur in an additional preliminary or finalized version. Dictated By: Chris Rubio DO, 08/23/2018 5:00 AM I have reviewed the study and agree with the findings in this report. Signed By: Maximiliano August MD, 08/23/2018 5:18 AM Narrative Performed [...] changes from right middle lobe resection. This [facility] radiology report is a preliminary resident dictation until finalized by an attending. Changes to this preliminary report may occur in an additional preliminary or finalized version. Dictated By: Chris Rubio DO, 08/23/2018 5:00 AM I have reviewed the study and agree with the findings in this report. Signed By: Maximiliano August MD, 08/23/2018 5:18 AM Performing Organization Address [place] [place] Number SMS * CT HEAD W/O CONTRAST (08/23/2018 4:45 AM CDT) Impressions Performed At IMPRESSION: SMS No acute intracranial abnormality. This [facility] radiology report is a preliminary resident dictation until finalized by an attending.Changes to this preliminary report may occur in an additional preliminary or finalized version. Dictated By: Chris Rubio DO, 08/23/2018 4:49 AM I have reviewed the study and agree with the findings in this report. Signed By: Maximiliano August MD, 08/23/2018 5:07 AM Narrative Performed At EXAM: CT BRAIN WITHOUT CONTRAST [facility] DATE: 08/23/2018 4:45 AM INDICATION: Headache, chronic, [...] IMPRESSION IMPRESSION: No acute intracranial abnormality. This [facility] radiology report is a preliminary resident dictation until finalized by an attending. Changes to this preliminary report may occur in an additional preliminary or finalized version. Dictated By: Chris Rubio DO, 08/23/2018 4:49 AM I have reviewed the study and agree with the findings in this report. Signed By: Maximiliano August MD, 08/23/2018 5:07 AM Performing Organization Address [facility] [place] Number SMS * TROPONIN I POC (08/23/2018 1:42 AM CDT) Troponin POC 0.00Comment: Physician 0.00 - 0.08 ng/mL J Notified MAIN-STATION 1 Performing Organization Address [facility] Phone Number MISYS [facility]-STATION 1 * D-DIMER (08/23/2018 1:34 AM CDT) D-Dimer 1.41 ug/mL,FEU [facility] Comment: MAIN-STATION 2 Values of quantitative d-Dimer less than 0.40 ug/mL FEU have been reported to be associated with a low probability of deep vein thrombosis/pulmonary embolism. This test alone should not be used to rule out DVT/PE. Specimen Blood Performing Organization Address [facility] Phone Number MISYS [facility] MAIN-STATION 2 * CT ABDOMEN AND PELVIS CONTRAST (08/22/2018 11:06 PM CDT) Impressions Performed At IMPRESSION: SMS 1.No acute CT abnormality in the abdomen and pelvis. 2.Small right pleural effusion. 3.Few foci of gas along the right lateral subcutaneous tissues of the upper abdomen may relate to recent injection. This [facility] radiology report is a preliminary resident [...] abdomen may relate to recent injection. This [facility] radiology report is a preliminary resident dictation until finalized by an attending. Changes to this preliminary report may occur in an additional preliminary or finalized version. Dictated By: Chris Rubio DO, 08/22/2018 11:16 PM I have reviewed the study and agree with the findings in this report. Signed By: Maximiliano August MD, 08/22/2018 11:24 PM Performing Organization Address City/[facility] Phone Number SMS * UA CHEMISTRIES (08/22/2018 9:40 PM CDT) Only the most recent of 2 results within the time period is included. Color Yellow [facility] Clarity Hazy [facility] Spec [place] 1.021 1.001 - 1.035 [facility] pH 5.0 5 - 8 [facility] Protein Negative NEG [facility] Glucose Negative NEG [facility] Ketone Negative NEG [facility] Bilirubin Negative NEG [facility] Nitrate Negative NEG [facility] Urobilinogen 1.0 0.2 - 1.0 EU/dL [facility] Leukocyte Trace (A) NEG [facility] Blood 1+ (A) NEG [facility] RBC 3 0 - 4 /HPF [facility] WBC 11 (H) 0 - 5 /HPF [facility] Bacteria Few [facility] Epithelial Cell 22 /HPF [facility] Mucous Present [facility] Specimen Urine Performing Organization Address City/[facility] Phone Number MISYS [facility] * LIVER PROFILE (08/22/2018 7:46 PM CDT) T Protein 6.7 6.0 - 8.3 g/dL [facility] MAIN-STATION 1 Albumin 4.2 3.7 - 5.3 g/dL [facility] MAIN-STATION 1 T Bilirubin 0.7 0.2 - 1.2 mg/dL [facility] MAIN-STATION 1 Alk Phos 93 34 - 104 U/L [facility] MAIN-STATION 1 AST 13 13 - 39 U/L [facility] MAIN-STATION 1 ALT 17 7 - 52 U/L [facility] MAIN-STATION 1 D Bilirubin 0.1 0.0 - 0.2 mg/dL [facility] MAIN-STATION 1 Specimen Blood Performing Organization Address City/[facility] Phone Number MELANIE [facility] MAIN-STATION 1 * LIPASE (08/22/2018 7:46 PM CDT) Lipase 1 (L) 11 - 81 U/L [facility] MAIN-STATION 1 Specimen Blood Performing Organization Address City/[facility] Phone Number MELANIE [facility] MAIN-STATION 1 * POCT URINE DIPSTICK - (08/22/2018 5:11 PM CDT) Only the most recent of 2 results within the time period is included. Pass Control Negative * XRAY CHEST 2 VIEWS (08/22/2018 4:52 PM CDT) Impressions Performed At IMPRESSION: Mild right lower lung airspace opacity representing SMS atelectasis or pneumonia. Small right pleural effusion. Signed By: Cecilia Michaels MD, 08/22/2018 4:56 PM Narrative Performed At EXAM: XR CHEST 2 VIEWS SMS DATE: 08/22/2018 4:33 PM INDICATION: s/p RML [...] MD, 08/22/2018 4:56 PM Performing Organization Address [facility] Phone Number SMS * VBG POC (08/22/2018 4:36 PM CDT) pH, Devin POC 7.39Comment: Physician 7.33 - 7.43 LB Notified MAIN-STATION 1 pCO2, Devin POC 42.9 38.0 - 50.0 mm Hg [facility] MAIN-STATION 1 pO2, Devin POC 37 (L) 50 - 75 mm Hg [facility] MAIN-STATION 1 Base Excess, 0 mmol/L [facility] Devin POC MAIN-STATION 1 HCO3, Devin POC 25.7 22.0 - 26.0 mmol/L [facility] MAIN-STATION 1 % Sat, Devin POC 70 60 - 85 % [facility] MAIN-STATION 1 Lactic Acid, 0.83 0.4 - 2.0 mmol/L LB Devin POC MAIN-STATION 1 TCO2, DEVIN POC 27 21 - 32 mmol/L [facility] MAIN-STATION 1 Performing Organization Address [facility] Phone Number MISYS LB MAIN-STATION 1 * BMP POC (08/22/2018 4:35 PM CDT) CO2 POC 26Comment: Physician Notified 21 - 32 mmol/L [facility] MAIN-STATION 1 Chloride POC 101 98 - 107 mmol/L [facility] MAIN-STATION 1 Potassium POC 4.0 3.50 - 5.10 mmol/L [facility] MAIN-STATION 1 Sodium POC 140 136 - 145 mmol/L [facility] MAIN-STATION 1 Glucose POC 111 (H) 74 - 106 mg/dL J MAIN-STATION 1 Urea Nitrogen 13 7 - 18 mg/dL [facility] POC MAIN-STATION 1 Creatinine POC 0.7 0.6 - 1.3 mg/dL [facility] MAIN-STATION 1 Calcium Ionized 1.18 1.15 - 1.29 mmol/L [facility] POC MAIN-STATION 1 Hemoglobin POC 16.0 12.0 - 16.0 g/dL LB MAIN-STATION 1 Hematocrit POC 47.0 37.0 - 47.0 % [facility] MAIN-STATION 1 GFR, Estimated >60 mL/min/1.73 m2 [facility] MAIN-STATION 1 GFR, Estim, >60 mL/min/1.73 m2 LB Afr-Am MAIN-STATION 1 Performing Organization Address City/State/Zipcode Phone Number MISYS [facility] MAIN-STATION 1 * CBC/DIFF (08/22/2018 4:34 PM CDT) WBC 7.8 4.5 - 11.0 K/uL [facility] MAIN-STATION 2 RBC 5.25 4.20 - 5.40 M/uL [facility] MAIN-STATION 2 Hemoglobin 14.3 12.0 - 16.0 g/dL LB MAIN-STATION 2 Hematocrit 45.8 37.0 - 47.0 % LB MAIN-STATION 2 MCV 87 82 - 92 fL LB MAIN-STATION 2 MCH 27.2 27.0 - 32.0 pg [facility] MAIN-STATION 2 MCHC 31.2 (L) 32.0 - 36.0 g/dL LB MAIN-STATION 2 RDW 47.0 (H) 36.4 - 46.3 fL [facility] MAIN-STATION 2 Platelet 183 150 - 400 K/uL LB MAIN-STATION 2 Mean Platelet 9.8 9.4 - 12.4 fL [facility] Volume MAIN-STATION 2 Percent NRBC 0.0 [facility] MAIN-STATION 2 Absolute NRBC 0.00 LB MAIN-STATION 2 Neutrophil 92.2 (H) 34.0 - 70.0 % [facility] MAIN-STATION 2 Lymphocyte 3.7 (L) 20.0 - 50.0 % [facility] MAIN-STATION 2 Monocyte 2.8 (L) 5.0 - 12.0 % [facility] MAIN-STATION 2 Eosinophil 0.9 0.7 - 5.0 % [facility] MAIN-STATION 2 Basophil 0.1 0.1 - 1.2 % [facility] MAIN-STATION 2 Pct Immat Gran 0.3 0.0 - 0.5 [facility] MAIN-STATION 2 Neutrophil, Abs 7.20 (H) 1.56 - 6.13 K/uL [facility] MAIN-STATION 2 Lymphocyte, Abs 0.29 (L) 1.18 - 3.74 K/uL [facility] MAIN-STATION 2 Monocyte, Abs 0.22 (L) 0.24 - 0.36 K/uL [facility] MAIN-STATION 2 Eosinophil, Abs 0.07 0.04 - 0.36 K/uL [facility] MAIN-STATION 2 Basophil, Abs 0.01 0.01 - 0.08 K/uL [facility] MAIN-STATION 2 Absol Immat 0.02 0.00 - 0.03 K/uL [facility] Gran MAIN-STATION 2 Specimen Blood Performing Organization Address City/State/Zipcode Phone Number MELANIE [facility] MAIN-STATION 2 * 12 LEAD EKG (08/22/2018 3:11 PM CDT) 12 LEAD EKG FOR SMS P [facility] Test Date:2018-08-22 Pat Name: MILANA LUGO epartment: [id number] Room: Gender: Immunochemist: [id number]/DIZZINESS :[birth year] Requested By: REID Carney Order Number: [id number] Reading MD: Ernesto KENNY Measurements Intervals [place] Rate: 103 P: 33 NH: 180 QRS: 15 QRSD: 103 T: 35 QT: 334 QTc:439 Interpretive Statements SINUS TACHYCARDIA POOR R WAVE PROGRESSION Minor Non-specific ST-T changes Borderline ECG Electronically Signed On 08-22-2018 16:23:30 CDT by Ernesto KENNY Performing Organization Address City/State/Zipcode Phone Number [facility] after 08/22/2017 Insurance Type Payer Benefit Subscriber ID Effective Phone Address Plan / Dates Group [facility] xxxxxxxxx 2018-[address] [facility] [id number] [place] [address]
--- OUTSIDE RECORDS SUMMARY | 2018-12-20 11:52 | XMS REPORT | Summary of Care ---
Author Author [facility] Organization [facility] Address Unknown Phone Unavailable Encounter CHARLIE Beltran(ANGELINA) [id number] Date(s): 10/06/15 - 10/06/15 [facility] [address] [place] [address]- U [phone] Discharge Diagnosis: Encounter for wound re-check Discharge Disposition: Home Attending Physician: Nany Blackwell MD Vital Signs Most recent to 1 oldest [Reference Range]: Height 160.02 cm (10/06/15 9:01 PM) Temperature Oral 97.6 DegF [96.4-99.1 DegF] (10/06/15 9:01 PM) Blood Pressure 122/72 mmHg [90-140/60-90 mmHg] (10/06/15 9:01 PM) Respiratory Rate 18 BRMIN [14-20 BRMIN] (10/06/15 9:01 PM) Peripheral Pulse 92 bpm Rate [60-100 bpm] (10/06/15 9:01 PM) Weight 122.727 kg (10/06/15 9:01 PM) Body Mass Index 47.93 m2 (10/06/15 9:01 PM) Problem List Condition Effective Dates Status Health Status Informant Bipolar Resolved disorder(Confirmed) GERD Resolved (gastroesophageal reflux disease)(Confirmed) Allergies, Adverse Reactions, Alerts Substance Reaction Severity Status droperidol Active penicillins Active Medications [place] 5/325 oral tablet 1 tab, Route: PO, Drug Form: TAB, Dosing Weight 122.727, kg, ONCE, STAT, Start d ate: 10/06/15 21:17:00 CDT, Stop date: 10/06/15 21:17:00 CDT Notes: (Same as: [place] 325/5) Do not exceed 4gm/day of acetaminophen. Start Date: 10/06/15 Stop Date: 10/06/15 Status: Completed Tylenol with Codeine #3 oral tablet 1 tab, PO, Q4H, PRN Pain, X 7 day, # 42 tab, 0 Refill(s) Start Date: 10/06/15 Stop Date: 10/13/15 Status: Ordered Results No data available for [...]
--- OUTSIDE RECORDS SUMMARY | 2018-12-20 11:52 | XMS REPORT | Summary of Care ---
Author Author [facility] Organization [facility] Address Unknown Phone Unavailable Encounter HQ Ruby(FIN) [id number] Date(s): 06/14/18 - 06/14/18 [facility] [address], [place] [address]- [phone] Encounter Diagnosis Acute headache (Discharge Diagnosis) - 06/14/18 Discharge Disposition: Home or Self Care Attending Physician: Krys Sargent MD Vital Signs Most recent to 1 2 oldest [Reference Range]: Height 160.02 cm (06/14/18 5:23 PM) Temperature Oral 98.1 DegF 97.0 DegF [96.4-99.1 DegF] (06/14/18 6:57 PM) (06/14/18 5:23 PM) Blood Pressure 136/84 mmHg 140/87 mmHg [90-140/60-90 mmHg] (06/14/18 6:57 PM) (06/14/18 5:23 PM) Respiratory Rate 18 BRMIN 16 BRMIN [14-20 BRMIN] (06/14/18 6:57 PM) (06/14/18 5:23 PM) Peripheral Pulse 87 bpm 81 bpm Rate [60-100 bpm] (06/14/18 6:57 PM) (06/14/18 5:23 PM) Weight 136.364 kg (06/14/18 5:23 PM) Body Mass Index 53.25 m2 (06/14/18 5:23 PM) Problem List Condition Effective Dates Status Health Status Informant Bipolar Resolved disorder(Confirmed) GERD Resolved (gastroesophageal reflux disease)(Confirmed) Allergies, Adverse Reactions, Alerts Substance Reaction Severity Status penicillins Active droperidol Active Medications ketOROLAC 60 mg, 2 mL, Route: IM, Drug form: INJ, ONCE, Dosing Weight 136.364, kg, Priorit y: STAT, Start date: 06/14/18 17:35:00 COBOL APPLICATION DEVELOPER, Stop date: 06/14/18 17:35:00 COBOL APPLICATION DEVELOPER Notes: (Same as:Toradol) IV bolus must be given >15 seconds. Give IM administration slowly and deeply into the muscle.Not for use > 4 days MEDICATION WASTE Product Size: 60 mgProduct Wasted: ___ mg Start Date: 06/14/18 Stop Date: 06/14/18 Status: Completed Reglan 10 mg oral tablet 10 mg, 1 tab, Route: PO, Drug form: TAB, ONCE, Dosing Weight 136.364, kg, Start date: 06/14/18 17:36:00 COBOL APPLICATION DEVELOPER, Stop date: 06/14/18 17:36:00 COBOL APPLICATION DEVELOPER Notes: (Same as: Reglan) Take 30 min before meals Start Date: 06/14/18 Stop Date: 06/14/18 Status: Completed tramadol 50 mg oral tablet 50 mg=1 tab, PO, BID, X 15 day, # 30 tab, 0 Refill(s) Start Date: 06/14/18 Stop Date: 06/29/18 Status: Ordered Zofran ODT 4 mg oral tablet, disintegrating 4 mg=1 tab, PO, BID, PRN Nausea and Vomiting, Dissolve tab under tongue, # 10 ta b, 0 Refill(s) Start Date: 06/14/18 Stop Date: 06/19/18 Status: Ordered Results No data available for [...]
--- OUTSIDE RECORDS SUMMARY | 2018-12-20 11:52 | XMS REPORT | Summary of Care ---
Author Author [facility] Organization [facility] Address Unknown Phone Unavailable Encounter CHARLIE Beltran(ANGELINA) [id number] Date(s): 10/05/15 - 10/05/15 [facility] [address] [place] [address]- U [phone] Discharge Diagnosis: Abscess Discharge Disposition: Home Attending Physician: Krisotfer Pena MD Vital Signs Most recent to 1 2 oldest [Reference Range]: Temperature Oral 98.8 DegF 97.3 DegF [96.4-99.1 DegF] (10/05/15 8:52 AM) (10/05/15 8:05 AM) Blood Pressure 143/88 mmHg 111/59 mmHg [90-140/60-90 mmHg] *HI* (10/05/15 8:05 AM) (10/05/15 8:52 AM) Respiratory Rate 16 BRMIN 18 BRMIN [14-20 BRMIN] (10/05/15 8:52 AM) (10/05/15 8:05 AM) Peripheral Pulse 65 bpm 71 bpm Rate [60-100 bpm] (10/05/15 8:52 AM) (10/05/15 8:05 AM) Problem List Condition Effective Dates Status Health Status Informant Bipolar Resolved disorder(Confirmed) GERD Resolved (gastroesophageal reflux disease)(Confirmed) Allergies, Adverse Reactions, Alerts Substance Reaction Severity Status droperidol Active penicillins Active Medications clindamycin 300 mg oral capsule 300 mg=1 cap, PO, Q6H, X 10 day, # 40 cap, 0 Refill(s) Start Date: 10/05/15 Stop Date: 10/15/15 Status: Ordered Diflucan 200 mg oral tablet 200 mg=1 tab, PO, qWeek, X 2 week, # 2 tab, 0 Refill(s) Start Date: 10/05/15 Stop Date: 10/19/15 Status: Ordered lidocaine-epi 1%-1:[id number] 1 ml, Route: SUB-Q, Drug Form: INJ, Dosing Weight 125, kg, ONCE, STAT, Start kasandra e: 10/05/15 8:02:00 CDT, Stop date: 10/05/15 8:02:00 CDT Notes: (Same as: Xylocaine w/Epinephrine) Start Date: 10/05/15 Stop Date: 10/05/15 Status: Ordered [place] 5/325 oral tablet 2 tab, Route: PO, Drug Form: TAB, Dosing Weight 125, kg, ONCE, Start date: 10/04 8:02:00 CDT, Stop date: 10/05/15 8:02:00 CDT Notes: (Same as: [place] 325/5) Do not exceed 4gm/day of acetaminophen. Start Date: 10/05/15 Stop Date: 10/05/15 Status: Completed Results No data available for [...]
--- OUTSIDE RECORDS SUMMARY | 2018-12-20 11:52 | XMS REPORT | Clinical Summary ---
Author Author [facility] Organization [facility] Address Unknown Phone Unavailable Care Team Providers Care Light Bulb Tester Name Role Phone PCP Unavailable Allergies Comments [...] Care Team Description Date Type Specialty RowanSmith raboleda DO Pandya, Michael, MD Nausea and vomiting, intractability of vomiting not specified, unspecified vomiting type (Primary Dx); Epigastric abdominal pain; Temporal headache 08/22/2018 Emergency Emergency Medicine - 08/23/2018 08/22/2018 Travel after 11/15/2017 Immunizations Name Administration Dates Next Due Albuterol [...] EKG Routine 08/22/2018 3:11 PM CDT after 11/15/2017 Results * CT CHEST PE PROTOCOL (08/23/2018 4:54 AM CDT) Specimen Impressions Performed At IMPRESSION: [facility] 1.No pulmonary embolus seen up to the segmental levels. 2.Mild pulmonary interstitial edema with loculated small right pleural effusion and trace pericardial effusion. 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 This [facility] radiology report is a preliminary resident [...] changes from right middle lobe resection. This [facility] radiology report is a preliminary resident [...] Impressions Performed At IMPRESSION: [facility] No acute intracranial abnormality. This [facility] radiology report is a preliminary resident [...] CT BRAIN WITHOUT CONTRAST [facility] DATE: 08/23/2018 4:45 AM INDICATION: Headache, chronic, [...] IMPRESSION IMPRESSION: No acute intracranial abnormality. This [facility] radiology report is a preliminary resident dictation until finalized by an attending. Changes to this preliminary report may occur in an additional preliminary or finalized version. Dictated By: Chris Rubio DO, 08/23/2018 4:49 AM I have reviewed the study and agree with the findings in this report. Signed By: Maximiliano August MD, 08/23/2018 5:07 AM Performing Organization Address [facility] Phone Number SMS * TROPONIN I POC (08/23/2018 1:42 AM CDT) Troponin POC 0.00Comment: Physician 0.00 - 0.08 ng/mL J Notified MAIN-STATION 1 Specimen Performing Organization Address [facility] Phone Number MISYS [facility] MAIN-STATION 1 * D-DIMER (08/23/2018 1:34 AM CDT) D-Dimer 1.41 ug/mL,FEU [facility] Comment: MAIN-STATION 2 Values of quantitative [...] abdomen may relate to recent injection. This [facility] radiology report is a preliminary resident [...] abdomen may relate to recent injection. This [facility] radiology report is a preliminary resident [...] Color Yellow [facility] Clarity Hazy [facility] Specific 1.021 1.001 - 1.035 [facility] [place] pH 5.0 5 - 8 [facility] Protein Negative NEG [facility] Glucose Negative NEG [facility] Ketones Negative NEG [facility] Bilirubin Negative NEG [facility] Nitrate Negative NEG [facility] Urobilinogen,Se 1.0 0.2 - 1.0 EU/dL [facility] mi-Qn Leukocyte Trace (A) NEG [facility] Occult Blood 1+ (A) NEG [facility] RBC 3 0 - 4 /HPF [facility] WBC 11 (H) 0 - 5 /HPF [facility] Bacteria Few [facility] Epithelial Cell 22 /HPF [facility] Mucous Present [facility] Specimen Urine Performing Organization Address City/[facility] Phone Number MISYS [facility] [address] [place] [address] * LIVER PROFILE (08/22/2018 7:46 PM CDT) [...] 1 ALT 17 7 - 52 U/L [facility] MAIN-STATION 1 D Bilirubin 0.1 0.0 - 0.2 mg/dL LB MAIN-STATION 1 Specimen Blood Performing Organization Address City/[facility]/Zipcode Phone Number MISYS [facility] MAIN-STATION 1 * LIPASE (08/22/2018 7:46 PM CDT) Lipase 1 (L) 11 - 81 U/L LB MAIN-STATION 1 Specimen Blood Performing Organization Address [facility] Phone Number MISYS [facility] MAIN-STATION 1 * POCT URINE DIPSTICK - (08/22/2018 5:11 PM CDT) Pass Control Negative * XRAY CHEST 2 VIEWS (08/22/2018 4:52 PM CDT) Specimen Impressions Performed At IMPRESSION: Mild right lower lung airspace opacity representing SMS atelectasis or pneumonia. Small right pleural effusion. Signed By: Cecilia Michaels MD, 08/22/2018 4:56 PM Narrative Performed At EXAM: XR CHEST 2 VIEWS [facility] DATE: 08/22/2018 4:33 PM INDICATION: s/p RML [...] MD, 08/22/2018 4:56 PM Performing Organization Address [facility] Phone Number [facility] * VBG POC (08/22/2018 4:36 PM CDT) pH, Devin POC 7.39Comment: Physician 7.33 - 7.43 LB Notified MAIN-STATION 1 pCO2, Devin POC 42.9 38.0 - 50.0 mm Hg LB MAIN-STATION 1 pO2, Devin POC 37 (L) 50 - 75 mm Hg [facility] MAIN-STATION 1 Base Excess, 0 mmol/L [facility] Devin POC MAIN-STATION 1 HCO3, Devin POC 25.7 22.0 - 26.0 mmol/L LB MAIN-STATION 1 % Sat, Devin POC 70 60 - 85 % [facility] MAIN-STATION 1 Lactic Acid, 0.83 0.4 - 2.0 mmol/L [facility] Devin POC MAIN-STATION 1 TCO2, DEVIN POC 27 21 - 32 mmol/L [facility] MAIN-STATION 1 Specimen Performing Organization Address [facility] Phone Number MISYS [facility] MAIN-STATION 1 * BMP POC (08/22/2018 4:35 PM CDT) CO2 POC 26Comment: Physician Notified 21 - 32 mmol/L [facility] MAIN-STATION 1 Chloride POC 101 98 - 107 mmol/L [facility] MAIN-STATION 1 Potassium POC 4.0 3.50 - 5.10 mmol/L [facility] MAIN-STATION 1 Sodium POC 140 136 - 145 mmol/L [facility] MAIN-STATION 1 Glucose POC 111 (H) 74 - 106 mg/dL [facility] MAIN-STATION 1 Urea Nitrogen 13 7 - 18 mg/dL [facility] POC MAIN-STATION 1 Creatinine POC 0.7 0.6 - 1.3 mg/dL [facility] MAIN-STATION 1 Calcium Ionized 1.18 1.15 - 1.29 mmol/L [facility] POC MAIN-STATION 1 Hemoglobin POC 16.0 12.0 - 16.0 g/dL [facility] MAIN-STATION 1 Hematocrit POC 47.0 37.0 - 47.0 % [facility] MAIN-STATION 1 GFR, Estimated >60 mL/min/1.73 m2 [facility] MAIN-STATION 1 GFR, Estim, >60 mL/min/1.73 m2 [facility] Afr-Am MAIN-STATION 1 Specimen Performing Organization Address [facility] Phone Number MISYS [facility] MAIN-STATION 1 * CBC/DIFF (08/22/2018 4:34 [...] MAIN-STATION 2 Specimen Blood Performing Organization Address City/State/[facility] Phone Number MISYS [facility] MAIN-STATION 2 * 12 LEAD EKG (08/22/2018 3:11 PM CDT) 12 LEAD EKG FOR SMS [facility] Date:2018-08-22 Pat Name: MILANA LUGO epartment: [id number] Room: Gender: Bull Bucker: [id number]/DIZZINESS :[birth year] Requested By: REID Carney Order Number: [id number] Reading MD: Ernesto KENNY Measurements Intervals [place] Rate: 103 P: 33 GA: 180 QRS: 15 QRSD: 103 T: 35 QT: 334 QTc:439 Interpretive Statements SINUS TACHYCARDIA POOR R WAVE PROGRESSION Minor Non-specific ST-T changes Borderline ECG Electronically Signed On 08-22-2018 16:23:30 CDT by Ernesto KENNY Specimen Performing Organization Address City/State/Zipcode Phone Number [facility] after 11/15/2017 Insurance Type Payer Benefit Subscriber ID Effective Phone Address Plan / Dates Group [facility] xxxxxxxxx 2018-0 [address] [facility] [id number] [place] [address]
--- OUTSIDE RECORDS SUMMARY | 2018-12-20 11:52 | XMS REPORT | Summary of Care ---
Author Author [facility] Organization [facility] Address Unknown Phone Unavailable Encounter CHARLIE Beltran(ANGELINA) [id number] Date(s): 10/11/15 - 10/11/15 [facility] [address] [place] [address]- U [phone] Discharge Diagnosis: Change or removal of wound dressing Discharge Disposition: Home Attending Physician: Farhat Cooney MD PHD Vital Signs Most recent to 1 oldest [Reference Range]: Height 160.02 cm (10/11/15 2:26 PM) Temperature Oral 97.7 DegF [96.4-99.1 DegF] (10/11/15 2:26 PM) Blood Pressure 102/46 mmHg [90-140/60-90 mmHg] (10/11/15 2:26 PM) Respiratory Rate 16 BRMIN [14-20 BRMIN] (10/11/15 2:26 PM) Peripheral Pulse 74 bpm Rate [60-100 bpm] (10/11/15 2:26 PM) Weight 130.455 kg (10/11/15 2:26 PM) Body Mass Index 50.95 m2 (10/11/15 2:26 PM) Problem List Condition Effective Dates Status Health Status Informant Bipolar Resolved disorder(Confirmed) GERD Resolved (gastroesophageal reflux disease)(Confirmed) Allergies, Adverse Reactions, Alerts Substance Reaction Severity Status droperidol Active penicillins Active Medications No data available for this section Results No data available for this section [...]
--- OUTSIDE RECORDS SUMMARY | 2018-12-20 11:52 | XMS REPORT | Clinical Summary ---
Author Author [facility] Organization [facility] Address Unknown Phone Unavailable Care Team Providers Care Railway Track Worker Name Role Phone PCP Unavailable Allergies Comments [...] mouth 4 times daily for 10 days. 08/30/2018 ondansetron (ZOFRAN) 4 mg Take 1 [...] (Primary Dx) 10/07/2017 Emergency Emergency Medicine after 10/03/2017 Immunizations Name Administration Dates Next Due Albuterol [...] CHEMISTRIES STAT 10/07/2017 11:34 AM CDT after 10/03/2017 Results * CT CHEST PE PROTOCOL (08/23/2018 4:54 AM CDT) Specimen Impressions Performed At IMPRESSION: [facility] 1.No pulmonary embolus seen up to the segmental levels. 2.Mild pulmonary interstitial edema with loculated small right pleural effusion and trace pericardial effusion. 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 This [facility] radiology report is a preliminary resident [...] changes from right middle lobe resection. This [facility] radiology report is a preliminary resident [...] CDT) Specimen Impressions Performed At IMPRESSION: [facility] No acute intracranial abnormality. This [facility] radiology report is a preliminary resident dictation until finalized by an attending.Changes to this preliminary report may occur in an additional preliminary or finalized version. Dictated By: Chris Rubio DO, 08/23/2018 4:49 AM I have reviewed the study and agree with the findings in this report. Signed By: Maximiliano August MD, 08/23/2018 5:07 AM Narrative Performed At EXAM: CT BRAIN WITHOUT CONTRAST [facility] DATE: 08/23/2018 4:45 AM INDICATION: Headache, chronic, [...] IMPRESSION IMPRESSION: No acute intracranial abnormality. This [facility] radiology report is a preliminary resident dictation until finalized by an attending. Changes to this preliminary report may occur in an additional preliminary or finalized version. Dictated By: Chris Rubio DO, 08/23/2018 4:49 AM I have reviewed the study and agree with the findings in this report. Signed By: Maximiliano August MD, 08/23/2018 5:07 AM Performing Organization Address [facility] Phone Number SMS * TROPONIN I POC (08/23/2018 1:42 AM CDT) Troponin POC 0.00Comment: Physician 0.00 - 0.08 ng/mL J Notified MAIN-STATION 1 Specimen Performing Organization Address [facility] Phone Number [facility] MAIN-STATION 1 * D-DIMER (08/23/2018 1:34 AM CDT) D-Dimer 1.41 ug/mL,FEU [facility] Comment: MAIN-STATION 2 Values of quantitative d-Dimer less than 0.40 ug/mL FEU have been reported to be associated with a low probability of deep vein thrombosis/pulmonary embolism. This test alone should not be used to rule out DVT/PE. Specimen Blood Performing Organization Address [facility] Phone Number MISYS [facility] MAIN-STATION 2 * CT ABDOMEN AND PELVIS CONTRAST (08/22/2018 11:06 PM CDT) Specimen Impressions Performed At IMPRESSION: SMS 1.No acute CT abnormality in the abdomen and pelvis. 2.Small right pleural effusion. 3.Few foci of gas along the right lateral subcutaneous tissues of the upper abdomen may relate to recent injection. This [facility] radiology report is a preliminary resident [...] abdomen may relate to recent injection. This [facility] radiology report is a preliminary resident dictation until finalized by an attending. Changes to this preliminary report may occur in an additional preliminary or finalized version. Dictated By: Chris Rubio DO, 08/22/2018 11:16 PM I have reviewed the study and agree with the findings in this report. Signed By: Maximiliano August MD, 08/22/2018 11:24 PM Performing Organization Address City/[facility] Phone Number SMS * UA CHEMISTRIES (08/22/2018 9:40 PM CDT) Only the most recent of 2 results within the time period is included. Color Yellow [facility] Clarity Hazy [facility] Spec [place] 1.021 1.001 - 1.035 [facility] [...] BLOOD BANK Specimen Urine Performing Organization Address City/[facility] Phone Number MISYS [facility] * LIVER PROFILE (08/22/2018 7:46 PM CDT) T Protein 6.7 6.0 - 8.3 g/dL [facility] MAIN-STATION 1 Albumin 4.2 3.7 - 5.3 g/dL [facility] MAIN-STATION 1 T Bilirubin 0.7 0.2 - 1.2 mg/dL [facility] MAIN-STATION 1 Alk Phos 93 34 - 104 U/L [facility] MAIN-STATION 1 AST 13 13 - 39 U/L [facility] MAIN-STATION 1 ALT 17 7 - 52 U/L [facility] MAIN-STATION 1 D Bilirubin 0.1 0.0 - 0.2 mg/dL [facility] MAIN-STATION 1 Specimen Blood Performing Organization Address City/State/Zipcode Phone Number MISYS [facility] MAIN-STATION 1 * LIPASE (08/22/2018 7:46 PM CDT) Lipase 1 (L) 11 - 81 U/L [facility] MAIN-STATION 1 Specimen Blood Performing Organization Address City/[facility] Phone Number MISYS [facility] MAIN-STATION 1 * POCT URINE DIPSTICK [...] MD, 08/22/2018 4:56 PM Performing Organization Address [facility] Phone Number SMS * VBG POC (08/22/2018 4:36 PM CDT) pH, Devin POC 7.39Comment: Physician 7.33 - 7.43 [facility] Notified MAIN-STATION 1 pCO2, Devin POC 42.9 38.0 - 50.0 mm Hg [facility] MAIN-STATION 1 pO2, Devin POC 37 (L) 50 - 75 mm Hg [facility] MAIN-STATION 1 Base Excess, 0 mmol/L LB Devin POC MAIN-STATION 1 HCO3, Devin POC 25.7 22.0 - 26.0 mmol/L [facility] MAIN-STATION 1 % Sat, Devin POC 70 60 - 85 % [facility] MAIN-STATION 1 Lactic Acid, 0.83 0.4 - 2.0 mmol/L LB Devin POC MAIN-STATION 1 TCO2, DEVIN POC 27 21 - 32 mmol/L [facility] MAIN-STATION 1 Specimen Performing Organization Address [facility] Phone Number MISYS LB MAIN-STATION 1 * [...] Urea Nitrogen 13 7 - 18 mg/dL [facility] POC MAIN-STATION 1 Creatinine POC 0.7 0.6 - 1.3 mg/dL J MAIN-STATION 1 Calcium Ionized 1.18 1.15 - 1.29 mmol/L LB POC MAIN-STATION 1 Hemoglobin POC 16.0 12.0 - 16.0 g/dL LB MAIN-STATION 1 Hematocrit POC 47.0 37.0 - 47.0 % LB MAIN-STATION 1 GFR, Estimated >60 mL/min/1.73 m2 LB MAIN-STATION 1 GFR, Estim, >60 mL/min/1.73 m2 LB Afr-Am MAIN-STATION 1 Specimen Performing Organization Address City/State/Zipcode Phone Number MISYS [facility] MAIN-STATION 1 * CBC/DIFF (08/22/2018 4:34 PM CDT) WBC 7.8 4.5 - 11.0 K/uL LB MAIN-STATION 2 RBC 5.25 4.20 - 5.40 M/uL [facility] MAIN-STATION 2 Hemoglobin 14.3 12.0 - 16.0 [...] CDT) 12 LEAD EKG FOR SMS P [facility] Test Date:2018-08-22 Pat Name: MILANA LUGO epartment: [id number] 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: 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 xxxxxxxxx 2018-[address] [facility] [id number] [place] [address]
--- OUTSIDE RECORDS SUMMARY | 2018-12-20 11:52 | XMS REPORT | Summary of Care ---
Author Author [facility] Organization [facility] Address Unknown Phone Unavailable Encounter CHARLIE Beltran(ANGELINA) [id number] Date(s): 10/03/15 - 10/03/15 [facility] [address] [place] [address]- U [phone] Discharge Diagnosis: Abscess Discharge Disposition: Home Attending Physician: Howie Vega MD Vital Signs Most recent to 1 2 oldest [Reference Range]: Height 160.02 cm (10/03/15 2:28 PM) Temperature Oral 98 DegF [96.4-99.1 DegF] (10/03/15 2:28 PM) Blood Pressure 108/71 mmHg [90-140/60-90 mmHg] (10/03/15 2:28 PM) Respiratory Rate 18 BRMIN 18 BRMIN [14-20 BRMIN] (10/03/15 3:30 PM) (10/03/15 2:28 PM) Peripheral Pulse 85 bpm 92 bpm Rate [60-100 bpm] (10/03/15 3:30 PM) (10/03/15 2:28 PM) Weight 125 kg (10/03/15 2:28 PM) Body Mass Index 48.82 m2 (10/03/15 2:28 PM) Problem List Condition Effective Dates Status Health Status Informant Bipolar Resolved disorder(Confirmed) GERD Resolved (gastroesophageal reflux disease)(Confirmed) Allergies, Adverse Reactions, Alerts Substance Reaction Severity Status droperidol Active penicillins Active Medications Bactrim DS 800 mg- 160 mg oral tablet 1 tab, PO, BID, X 10 day, # 20 tab, 0 Refill(s) Start Date: 10/03/15 Stop Date: 10/13/15 Status: Ordered Results No [...]
--- OUTSIDE RECORDS SUMMARY | 2018-12-20 11:53 | XMS REPORT ---
[facility] Address Unknown Phone Unavailable Care Team Providers Care Data Entry Operator Name Role Phone UNKNOWN, REFFERING PP Unavailable Narda CHANDLER Unavailable Unavailable TORO FLORIAN Unavailable Unavailable CICI GIORDANO Unavailable Unavailable KAZ DE LEON Unavailable Unavailable CONCHITA VILLA Unavailable Unavailable Ranjan LANDRY Unavailable Unavailable Payers Payer Name Policy Type Policy Number Effective Date Expiration Date Problems This patient has no known problems. Allergies, Adverse Reactions, Alerts Allergy Name Allergy Type Status Severity Reaction(s) Onset Date Inactive Date Treating Clinician Comments Penicillins DA Active [place] 2018-11-01 00:00:00 droperidol DA Active U 2018-11-01 00:00:00 Penicillins DA Active [place] 2018-06-26 00:00:00 droperidol DA Active U 2018-06-26 00:00:00 Penicillins DA Active [place] 2015-10-07 00:00:00 droperidol DA Active U 2015-10-07 00:00:00 Medications This patient has no known medications. Encounters Start Date/Time End Date/Time Encounter Type Admission Type Attending Clinicians Care Facility Care Department Encounter ID 2018-11-16 13:28:00 2018-11-16 13:28:00 Emergency [facility] [id number] 2018-10-04 18:09:00 2018-10-04 18:09:00 Emergency E [facility] [id number] 2018-08-23 04:40:30 2018-08-23 04:40:30 Emergency [facility] [id number] 2018-08-23 04:07:04 2018-08-23 04:07:04 Emergency [facility] [id number] 2018-08-22 22:31:27 2018-08-22 22:31:27 Emergency [facility] [id number] 2018-08-22 17:10:09 2018-08-22 17:10:09 Emergency [facility] [id number] 2018-08-22 16:33:30 2018-08-22 16:33:30 Emergency [facility] [id number] 2017-10-07 10:55:09 2017-10-07 10:55:09 Emergency [facility] [id number] 2017-08-17 12:24:10 2017-08-17 12:24:10 Emergency [facility] [id number] 2017-08-17 10:52:57 2017-08-17 10:52:57 Emergency [facility] [id number] 2017-07-23 13:59:55 2017-07-23 13:59:55 Emergency [facility] [id number] 2017-07-22 00:00:00 2017-07-22 00:00:00 Outpatient [facility] [id number] 2017-07-14 15:53:45 2017-07-14 15:53:45 Emergency [facility] [id number] 2017-07-14 14:50:25 2017-07-14 14:50:25 Emergency [facility] [id number] 2017-07-04 00:19:31 2017-07-04 00:19:31 Emergency [facility] [id number] 2017-06-27 14:47:15 2017-06-27 14:47:15 Emergency [facility] [id number] 2017-06-27 14:22:00 2017-06-27 14:22:00 Emergency [facility] [id number] 2017-01-27 12:35:00 2017-01-27 12:35:00 Emergency E [facility] [id number] 2016-10-28 05:00:43 2016-10-28 05:00:43 Emergency [facility] [id number] 2016-09-24 08:13:00 2016-09-24 08:13:00 Emergency E [facility] [id number] Results Test Description Test Time Test Comments Text Results Atomic Results Result Comments CT, CHEST WITH IV CONTRAST- PE TEST DESIGN 2018-11-28 20:03:00 Reason for exam:- >SHORTNESS OF BREATHReason for exam:->CHEST PAINIs the patient ?->NoWhat is the patient's sedation requirement?->No Sedation FINAL REPORT CT Chest PE Protocol dated 11/28/2018 Clinical information: Dyspnea, cardiac origin suspectedShortness of breathSHORTNESS OF BREATHCHEST PAIN Technique: This exam was performed according [...] Coronal and sagittal reformations of the pulmonary arter ies were performed. Comment: Heart is normal in [...] lungs are clear. Impression: 1. No pulmonary thromboembolism.2. Small right pleural effusion. Signed: Ilda Peralta Verified Date/Time: 11/28/2018 20:03:42 Reading Location: [address] Consult Reading Room , CHEST, 1 VIEW, NON DEPT 2018-11-28 19:00:00 Reason for exam:->SHORTNESS OF BREATHReason for exam:->CHEST PAINIs the patient ?->NoTUBAL LIGATIONShould this be performed at the bedside?->Yes FINAL REPORT AP view of the chest dated 11/28/2018 CLINICAL INFORMATION: SHORTNESS OF BREATHCHEST PAIN Comment: Heart is in upper limits of normal in size. Pulmonary vasculature is unremarkable. Lungs are clear. No pulmonary infiltrate or pleural effusion is present. Impression: No active cardiopulmonary disease. Signed: Kathryn, Ilda MDReport Verified Date/Time: 11/28/2018 19:00:15 Reading Location: [facility] C013W Consult Reading Room -LACTIC ACID, VENOUS 2018-11-28 18:50:00 POC-LACTIC ACID, VENOUS (BEAKER) (test lrcr=3298) 1.0 mmol/L 0.9-1.[address] [facility] [address] [facility] [address] TROPONIN [id number] 18:02:00* Test Item Value Reference Range Comments TROPONIN I (BEAKER) (test wsul=231) < ng/mL 0.00-0.03 Troponin I (TnI) levels must be interpreted in the context of the presenting sym ptoms and the clinical findings. Elevated TnI levels indicate myocardial damage, but are not specific for ischemic heart disease. Elevated TnI levels are seen in patients with other cardiac conditions (including myocarditis and congestive h eart failure), and slight TnI elevations occur in patients with other conditions , including sepsis, renal failure, acidosis, acute neurological disease, and per sistent tachyarrhythmia.URINALYSIS W/ [id number] 17:55:00* Test Item Value Reference Range Comments COLOR (BEAKER) (test abxc=059) Light Yellow CLARITY (BEAKER) (test ydfz=951) Hazy SPECIFIC GRAVITY UA (BEAKER) (test cwxd=937) 1.007 1.001-1.035 PH UA (BEAKER) (test dybw=917) 7.0 5.0-8.0 PROTEIN UA (BEAKER) (test djio=008) Negative Negative GLUCOSE UA (BEAKER) (test cleo=543) Negative Negative KETONES UA (BEAKER) (test xoxz=361) Negative Negative BILIRUBIN UA (BEAKER) (test jnrd=748) Negative Negative BLOOD UA (BEAKER) (test eijc=903) Negative Negative NITRITE UA (BEAKER) (test gvvy=073) Negative Negative LEUKOCYTE ESTERASE UA (BEAKER) (test okzz=168) Trace Negative UROBILINOGEN UA (BEAKER) (test folc=964) 0.2 mg/dL 0.2-1.0 RBC UA (BEAKER) (test iufz=320) < /HPF WBC UA (BEAKER) (test ipyp=849) 3 /HPF BACTERIA (BEAKER) (test hxeg=126) Occasional SQUAMOUS EPITHELIAL (BEAKER) (test zwqd=051) 23 /HPF SOURCE(BEAKER) (test ygrp=4364) Urine, Clean Catch [id number] 17:54:00* Test Item Value Reference Range Comments D-DIMER QUANTITATIVE (BEAKER) (test hbtr=558) 0.63 MG/L FEU <0.50 Intended Use: The D-Dimer Assay can be used to aid in the diagnosis of Deep Vein Thrombosis (DVT) and Pulmonary Embolism Disease (PED).In patients with low pre- test probability, various studies concerning STA Liatest D-dimer test have repor nabila that with a cutoff value of 0.50 MG/L FEU, the Negative Predictive Value (BUSH HOG OPERATOR V) regarding the exclusion of thrombosis is within 95-100% range.BASIC METABOLIC [id number] 17:53:00* Test Item Value Reference Range Comments SODIUM (BEAKER) (test erpi=664) 140 meq/L 136-145 POTASSIUM (BEAKER) (test mhkh=365) 4.3 meq/L 3.5-5.1 Specimen moderately hemolyzed CHLORIDE (BEAKER) (test jqau=553) 107 meq/L 98-107 CO2 (BEAKER) (test eagk=463) 25 meq/L 22-29 BLOOD UREA NITROGEN (BEAKER) (test lcvy=389) 8 mg/dL 7-21 CREATININE (BEAKER) (test iylf=445) 0.94 mg/dL 0.57-1.25 Specimen moderately hemolyzed GLUCOSE RANDOM (BEAKER) (test gcgg=791) 93 mg/dL 70-105 CALCIUM (BEAKER) (test nhya=014) 9.1 mg/dL 8.4-10.2 EGFR (BEAKER) (test pzhy=1644) 64 mL/min/1.73 sq m ESTIMATED GFR IS NOT ACCURATE CREATININE CLEARANCE IN PREDICTING GLOMERULAR FILTRATION RATE. ESTIMATED GFR IS NOT APPLICABLE FOR DIALYSIS PATIENTS. CBC W/PLT COUNT & AUTO [id number] 17:36:00* Test Item Value Reference Range Comments WHITE BLOOD CELL COUNT (BEAKER) (test skva=495) 5.2 K/ L 3.5-10.5 RED BLOOD CELL COUNT (BEAKER) (test azum=269) 4.63 M/ L 3.93-5.22 HEMOGLOBIN (BEAKER) (test fanb=604) 12.8 GM/DL 11.2-15.7 HEMATOCRIT (BEAKER) (test rfqx=872) 39.7 % 34.1-44.9 MEAN CORPUSCULAR VOLUME (BEAKER) (test yuzr=033) 85.7 fL 79.4-94.8 MEAN CORPUSCULAR HEMOGLOBIN (BEAKER) (test mcoz=469) 27.6 pg 25.6-32.2 MEAN CORPUSCULAR HEMOGLOBIN CONC (BEAKER) (test wynf=706) 32.2 GM/DL 32.2-35.5 RED CELL DISTRIBUTION WIDTH (BEAKER) (test lhsr=901) 14.5 % 11.7-14.4 PLATELET COUNT (BEAKER) (test rwuv=754) 200 K/CU MM 150-450 MEAN PLATELET VOLUME (BEAKER) (test qptw=752) 10.2 fL 9.4-12.3 NUCLEATED RED BLOOD CELLS (BEAKER) (test svel=899) 0 /100 WBC 0-0 NEUTROPHILS RELATIVE PERCENT (BEAKER) (test ilij=913) 63 % LYMPHOCYTES RELATIVE PERCENT (BEAKER) (test ckuj=870) 29 % MONOCYTES RELATIVE PERCENT (BEAKER) (test emzc=323) 7 % EOSINOPHILS RELATIVE PERCENT (BEAKER) (test wxou=759) 2 % BASOPHILS RELATIVE PERCENT (BEAKER) (test iiez=324) 0 % NEUTROPHILS ABSOLUTE COUNT (BEAKER) (test rzze=788) 3.22 K/ L 1.56-6.13 LYMPHOCYTES ABSOLUTE COUNT (BEAKER) (test pgyd=608) 1.48 K/ L 1.18-3.74 MONOCYTES ABSOLUTE COUNT (BEAKER) (test yjur=755) 0.34 K/ L 0.24-0.36 EOSINOPHILS ABSOLUTE COUNT (BEAKER) (test zttk=417) 0.08 K/ L 0.04-0.36 BASOPHILS ABSOLUTE COUNT (BEAKER) (test mamd=379) 0.01 K/ L 0.01-0.08 IMMATURE GRANULOCYTES-RELATIVE PERCENT (BEAKER) (test lgsi=2967) 0 % 0-1 TISSUE [id number] 12:08:00Surgical Pathology Report Case: [id number] Authorizing Provider: Salty Florian MD Collected: 11/23/2018 1004 Ordering Location: [facility] Endoscopy Received: 11/23/2018 1127 Services Pathologist: Katia Covarrubias MD Specimens: A) - Biopsy, Gastric, bx r/o H pylori B) - Polyp, Colon - Right/Ascending, polyp taken by frcp C) - Polyp, Colon - Rectum, polyp taken by frcp A. STOMACH, RANDOM BIOPSIES: - ANTRAL MUCOSA WITH REACTIVE GASTROPATHY - BODY MUCOSA WITH PROTON PUMP INHIBITOR THERAPY EFFECT - NEGATIVE FOR HELICOBACTER PYLORI ORGANISMS BY WARTHIN STARRY STAIN - NEGATIVE FOR INTESTINAL METAPLASIA, DYSPLASIA, MALIGNANCYB. COLON, RIGHT/ASCENDING POLYP, BIOPSY: - TUBULAR ADENOMAC. RECTUM, POLYP, BIOPSY: - HYPERPLASTIC POLYP Signing Pathologist Direct Phone Line: [phone] signed by Katia Covarrubias MD on 11/24/2018 at 12:08 [id number] and postop diagnosis: abnormal gastrointestinal PET scan, Helicobacter pylori gastritis A. Biopsy, gastric, rule out H. Pylori; B. Polyp, colon - right/ascending; C. Polyp, colon - rectumA. Received in formalin labeled with the patient's name, accession number and "biopsy, gastric" are two irregular howard soft tissue fragments measuring 0.7 cm and 0.4 cm which are submitted in toto in A1.B. Received in formalin labeled with the patient's name, accession number and "polyp, colon - right/ascending" is a 0.4 cm an polyp which is submitted in toto in B1. C. Received in formalin labeled with the patient's name, accession number and "polyp, colon - rectum" are two irregular howard soft tissue fragments each measuring 0.2 cm which are submitted in toto in C1. CG/pl Performed.The interp retation of this case included the use of immunohistochemistry or special stains .Control Slides Examined: In-house known positive controls were evaluated along with the test tissue. These control slides run alongside of the patients sample show appropriate staining. Internal positive and negative controls when availa ble are evaluated Immunohistochemistry technical testing was performed at [facility], Pathology Laboratory where it was developed and its performance characteristics were determined. It has not been cleared or approved by the U.S. Food and Drug Administration. The FDA has determined that such nancy clay or approval is not necessary. The test is used for clinical purposes. It s hould not be regarded as investigational or for research. This laboratory is cer tified under the Clinical Laboratory Improvement Amendments of 1988 (CLIA-88) as qualified to perform high complexity clinical laboratory testing.CYTOLOGY 2018-11-22 13:16:00Medical Cytology Report Case: [id number] Authorizing Provider: Ilda Giordano, Collected: 11/21/2018 Mahin RM Ordering Location: [facility] Radiology Main Received: 11/21/2018 1324 Pathologist: Santana Preston MD Specimen: Thyroid, Right THYROID GLAND, RIGHT LOBE NODULE, FNA BY CLINICIAN (CYTOSPINS AND CELL BLOCK OF ASPIRATE): - SATISFACTORY FOR EVALUATION - DIAGNOSTIC CATEGORY: BENIGN - CONSISTENT WITH BENIGN FOLLICULAR NODULE WITH CYSTIC CHANGES - SEE COMMENT Signing Pathologist Direct Phone Line: [phone] signed by Santana Preston MD on 11/22/2018 at 1:16 PMClinical and radiographic correlation is recommended. Please also see cytopathology case [id number], 20349(4.2 X 2.1 X 2.4 cm) Enlarged right thyroid nodule RIGHT LOBE THYROID GLAND NODULE FNA30 mls in cytorich red; 4 cytospins, cell block (collodion bag)Collected: [id number]: [id number] [facility], Department of Pathology, [address] [place] [address], [facility], Department of Pathology, [address] [place] [address], [facility], Department of Pathology, [address] [place] [address], [id number] 13:12:00 Medical Cytology Report Case: [id number] Authorizing Provider: Ilda Giordano, Collected: 11/21/2018 Mahin RM Ordering Location: [facility] Radiology Main Received: 11/21/2018 1323 Patholog ist: Santana Preston MD Specimen: Thyroid, Left THYROID GLAND, LEFT LOBE NODULE, FNA BY CLINICIAN (Ranjan BLANC AND CELL BLOCK OF ASPIRATE): - SATISFACTORY FOR EVALUATION - DIAG NOSTIC CATEGORY: BENIGN - CONSISTENT WITH BENIGN FOLLICULAR NODULE - SEE COMMENT Signing Pathologist Direct Phone Line: [phone] s igned by Santana Preston MD on 11/22/2018 at 1:12 PMPlease see cytopathology eli e [id number]. Clinical and radiographic correlation is recommended.07990, 86598(1. 7 x 1.2 x 1.4 cm) enlarged left thyroid noduleLEFT LOBE THYROID GLAND NODULE FNA Prepared 4 cytospins and cell block(A2) using collodion bag from 30 ml in cytori ch red fixative sampleCollected: [id number]: [id number].[facility], Department of Pathology, [address] [place] [address], [facility], Department of Pathology, [address] [place] [address], [facility], Department of Pathology, [address] [place] [address], Tel US, FINE NEEDLE ASPIRATION WITH ULTRASOUND [id number] 19:05:00 Reason for Exam:->MULTIPLE THYROID NODULESFINAL REPORT History: Multiple thyroid nodules. PROCEDURE: Following [...] as described in detail above. Signed: Kevin Beltre Verified Date/Time: 11/21/2018 19:05:24 Reading Location: [place] [address] Angio Body Reading Room , FINE NEEDLE ASPIRATION WITH ULTRASOUND [id number] 19:05:00Reason for Exam:->MULTIPLE THYROID NODULESFINAL REPORT History: Multiple thyroid nodules. PROCEDURE: Following [...] as described in detail above. Signed: Kevin Beltre Verified Date/Time: 11/21/2018 19:05:24 Reading Location: [place] [address] Angio Body Reading Room IC [id number] 16:55:00* Test Item Value Reference Range Comments LACTIC ACID (test code=LACT) 1.3 mmol/L 0.7-2.0 - CT ABD PELVIS [id number] 16:17:00 FAX: Paul Santiago MD [phone] [place]: St: REG FAX: JoseIbrahima Liang [phone] Name: CÉSAR ANGEL [facility] : 1970 Age/S: 48/F [address] Unit: [id number] Loc: [place] [address] Phys: Ibrahima Garcia DO Acct: [id number] Dis Date: Status: REG ER PHONE #: [phone] Exam Date: 11/12/2018 1600 FAX #: [phone] Reason: right sided pain, hx of lung cancer with mets EXAMS: CPT CODE: [id number] CT ABD PELVIS W/CONT 49067 EXAM: - CT ABD PELVIS W/CONT Location code:C3 INDICATION: 48 years -old Female with right sided pain, hx of lung cancer with mets TECHNIQUE: Contrast - IV contrast was given. No oral contrast was given Portal venous phase - abdomen and pelvi s No delayed phase images were obtained. Reconstructions - coronal a nd sagittal planes Automated exposure reduction (Auto mA/Smart mA) was utilized in compliance with ACR Image Wisely with DLP of 1066.48 mGy- cm. COMPARISON: CT abdomen pelvis performed on 10/08/2015 FINDINGS: Statements: None. Thoracic: Focal atelectasis is seen within the right lung base. Hepatobiliary: The liver is n ormal without focal lesion. Status post cholecystectomy. No biliary dilati on. Pancreas: Normal. Spleen: Normal. Adrenals: Normal. Genitourinary: There is a 2.2 x 2.4 x 2.7 cm hy poenhancing lesion within the upper right kidney that may represent a cyst . The left kidney demonstrates an unremarkable appearance. No evidence o f hydronephrosis. Evaluation of the bladder is limited, but no obvious bladder abnormality is present. Gastrointestinal: No bowel obs truction or perienteric inflammation. The appendix is normal. Vascular: No evidence of aneurysm or dissection. PAGE 1 Signed Report (CONTINUED) FAX: Duke Santiago MD [phone] [place]: St: REG FAX: Ibrahima Garcai [phone] Name: CÉSAR ANGEL [facility] : 1970 Age/S: 48/F [address] Unit: [id number] Loc: [place] [address] Phys: Ibrahima Garcia DO Acct: [id number] Dis Date: Status: REG ER PHONE #: [phone] Exam Date: 11/12/2018 1600 FAX #: [phone] Reason: right sided pain, hx of lung cancer with mets EXAMS: CPT CODE: [id number] CT ABD PELVIS W/CONT 11975 <Continued> Lymphatics: No enlarged lymph nodes by CT size criteria. B ones/Soft Tissues: No acute osseous findings. No ventral hernias. Peritoneum/Other: No extraluminal air. No extraluminal fluid. IM PRESSION: 1. No CT evidence of acute pathology within the abd omen or pelvis. 2. Prior cholecystectomy. 3. Normal-appearing appendix. 4. Hypoenhancing lesion within the the upper right kidney samuel t may represent a cyst. Recommend nonemergent renal ultrasound or comparison to prior imaging. at 9678 * * Reported and signed by: Tay Kaiser M.D. CC: Paul Castillo MD; Ibrahima Garcia DO Technologist: Indira León Trnscrd Dt/Tm: 11/12/2018 (9464) Haim.CP11 Orig Print D/T: S: 11/12/2018 (1620 PAGE 2 Signed Report PROCALCITONIN (PCT)2018-11-12 15:44:00* Test Item Value Reference Range Comments PROCALCITONIN (PCT) (test code=PROCAL) < 0.05 NG/ML Procalcitonin (PCT) Normal Value: <0.05 NG/ML <0.5 NG/ML - low risk of severe sepsis and/or septic shock>2.0 NG/ML - high risk of severe sepsis and/or septic shock PCT concentrations between 0.5 and 2.0 NG/ML should beinterpreted taking into account the patient's history.It is recommended to retest PCT within 6-24 hours if anyconcentrations between 0.5-2.0 NG/ML are obtained. - XR CHEST 1 [id number] 15:35:00 FAX: Paul Santiago MD [phone] [place]: St: REG FAX: Ibrahima Garcia [phone] Name: CÉSAR ANGEL [facility] [place] : 1970 Age/S: 48/F [address] Unit #: [id number] Loc: [place] [address] Phys: Ibrahima Garcia DO Acct: [id number] Dis Date: Status: REG ER PHONE #: [phone] Exam Date: 11/12/2018 1520 FAX #: [phone] Reason: CODE SEPSIS EXAMS: CPT CODE: [id number] XR CHEST 1 V 71027 EXAM: - XR CHEST 1 V 11/12/2018 2:47 PM Location code:C3 HISTORY: 48 years-old Female with CODE SEPSIS TECHNIQUE: Frontal portable view of the chest COMPARISON: Chest CT performed on 10/26/2018 FINDINGS: Lines and tubes: None. Cardiomediastinal: Cardiomegaly. Lungs and pleura: The lungs are clear. No pleural effusion. No pneumothorax. Musculoskeletal: No significant skeletal abnormality. IMPRES ROM: No radiographic evidence of a focal infiltrate. Cardiomegaly. at 9341 Reported and signed by: Tay Kaiser M.D. CC: Paul Castillo MD; Ibrahima Garcia DO Technologist: NATALYA GONCALVES; Agency Technologist Trnscrd Date/Time/By: 11/12/2018 (3648) : By: Suzanna SteinerCP11 PAGE 1 Signed Report FAX: Paul Santiago MD [phone] [place]: St: [facility] FAX: Ibrahima Garcia [phone] Name: CÉSAR ANGEL [facility] : 1970 Age/S: 48/F [address] Unit #: [id number] Loc: [place] [address] Phys: Ibrahima Garcia DO Acct: [id number] Dis Date: Status: REG ER PHONE #: [phone] Exam Date: 11/12/2018 1520 FAX #: [phone] Reason: CODE SEPS IS EXAMS: CPT CODE: [id number] XR CHEST 1 V 73534 <Continued> Orig Print D/T: S: 11/12/2018 (6203) PAGE 2 Signed Report PROTHROMBIN [id number] 15:25:00* Test Item Value Reference Range Comments PROTHROMBIN TIME PATIENT (test code=PTP) 10.6 SECONDS 9.2-12.1 INTERNATIONAL NORMAL RATIO (test code=INR) 1.0 The INR is to be used only for monitoring ORAL ANTICOAGULANTTHERAPY. Indication INR Value1. Prophylaxis/treatment of: Venous Thrombosis, Pulmonary Embolism 2.0 - 3.02. Prevention of systemic embolism from: Tissue heart valves 2.0 - 3.0 Acute myocardial infarction (to present systemic embolism)* 2.0 - 3.0 Valvular heart disease 2.0 - 3.0 Atrial fibrillation 2.0 - 3.03. Mechanical prosthetic valves (high risk) 2.5 - 3.5 * If oral anticoagulant therapy is elected to preventrecurrent myocardial infarction, an INR of 2.5-3.5 isrecommended, consistent with Food and Drug Administrationrecommendations. THROMBOPLASTIN TIME [id number] 15:25:00* Test Item Value Reference Range Comments THROMBOPLASTIN TIME PARTIAL (test code=PTT) 26.1 SECONDS 23.4-37.0 Therapeutic Range for Heparin EFFECTIVE 11/16/12 Heparin IU/mL aPTT Seconds0.3 64.30.7 88.8 UA RFLX MICR CULT IF [id number] 15:24:00* Test Item Value Reference Range Comments UA COLOR (test code=COLU) Yellow Yellow UA APPEARANCE (test code=APPU) Cloudy Clear UA GLUCOSE DIPSTICK (test code=DGLUU) Negative Negative UA BILIRUBIN DIPSTICK (test code=BILU) Negative Negative UA KETONE DIPSTICK (test code=KETU) Negative mg/dL Negative UA SPECIFIC GRAVITY (test code=SGU) 1.021 <1.030 UA BLOOD DIPSTICK (test code=YUMI) Negative Negative UA PH DIPSTICK (test code=RIANNA) 5.0 5.0-8.0 UA PROTEIN DIPSTICK (test code=PROU) NEGATIVE mg/dL Negative UA UROBILINOGEN DIPSTICK (test code=URO) Negative mg/dL Negative UA NITRITE DIPSTICK (test code=ANITHA) Negative Negative UA LEUKOCYTE ESTERASE DIPSTICK (test code=LEUU) 1+ Negative UA WBC (test code=WBCUR) 5-10 /HPF <4-5 UA RBC (test code=RBCU) 4-5 /HPF <4-5 UA BACTERIA (test code=BACU) Rare /HPF None-Rare UA SQUAMOUS CELLS (test code=SQU) 16-25 (MODERATE) /HPF 0-5 (RARE) UA CALCIUM OXALATE CRYSTALS (test code=CAOXU) Rare /HPF None UA MUCUS (test code=MUCU) Rare /LPF <Rare Indication for culture: Sev. Sepsis-no other [facility] METABOLIC PANEL 2018-11-12 15:24:00* Test Item Value Reference Range Comments SODIUM (test code=NA) 140 mmol/L 137-145 POTASSIUM (test code=K) 4.2 mmol/L 3.4-5.0 CHLORIDE (test code=CL) 103 mmol/L 98-107 CARBON DIOXIDE (test code=CO2) 24 mmol/L 22-30 GLUCOSE (test code=GLU) 119 mg/dL 74-106 BLOOD UREA NITROGEN (test code=BUN) 10 mg/dL 7-17 GLOMERULAR FILTRATION RATE (test code=GFR) 82 >60 The estimated glomerular filtration rate is computed usingpatient race, age (>18), sex, and serum creatinine. If anyof the needed data elements are missing the Laboratory cannot compute an estimation of the glomerular filtration rate. CREATININE (test code=CREAT) 0.8 mg/dL 0.5-1.0 CALCIUM (test code=CA) 9.7 mg/dL 8.4-10.2 LIVER FUNCTION [id number] 15:24:00* Test Item Value Reference Range Comments TOTAL PROTEIN (test code=PROT) 7.4 g/dL 6.3-8.2 ALBUMIN (test code=ALB) 4.3 g/dL 3.5-5.0 BILIRUBIN TOTAL (test code=BILT) 0.5 mg/dL 0.2-1.3 BILIRUBIN CONJUGATED (test code=BILCON) 0 mg/dL 0-0.3 ~~~~~~~~~~~~~~~~~~~~~~~~~~~~~~~~~~~~~~~~~~~~~~~~~~~~~~~~~~~~CONJUGATED BILIRUBIN IS THE REPLACEMENT ASSAY FOR DIRECTBILIRUBIN.~~~~~~~~~~~~~~~~~~~~~~~~~~~~~~~~~~~~~~~~~~~~~~~~~~~~~~~~~~~~ BILIRUBIN UNCONJUGATED (test code=BILUNC) 0.2 mg/dL 0-1.1 SGOT/AST (test code=AST) 26 U/L 15-46 SGPT/ALT (test code=ALT) 17 U/L 13-69 ALKALINE PHOSPHATASE (test code=ALKP) 83 U/L 38-126 [id number] 15:24:00* Test Item Value Reference Range Comments LIPASE (test code=LIP) 36 U/L 23-300 URINALYSIS [id number] 15:15:00* Test Item Value Reference Range Comments UA COLOR (test code=COLU) YELLOW UA APPEARANCE (test code=APPU) CLEAR UA GLUCOSE DIPSTICK (test code=DGLUU) MG/DL NEGATIVE UA BILIRUBIN DIPSTICK (test code=BILU) NEGATIVE UA KETONE DIPSTICK (test code=KETU) MG/DL NEGATIVE UA SPECIFIC GRAVITY (test code=SGU) 1.000-1.030 UA BLOOD DIPSTICK (test code=YUMI) NEGATIVE UA PH DIPSTICK (test code=RIANNA) 4.5-8.5 UA PROTEIN DIPSTICK (test code=PROU) MG/DL NEGATIVE UA UROBILINOGEN DIPSTICK (test code=URO) EU/dL <=1.0 UA NITRITE DIPSTICK (test code=ANITHA) NEGATIVE UA LEUKOCYTE ESTERASE DIPSTICK (test code=LEUU) NEGATIVE UA WBC (test code=WBCU) /HPF 0-3 UA RBC (test code=RBCU) /HPF 0-3 UA BACTERIA (test code=BACU) /HPF NEGATIVE UR HCG [id number] 15:15:00* Test Item Value Reference Range Comments UR HCG QUAL (test code=HCGQLU) NEGATIVE NEGATIVE TROPONIN I [id number] 15:14:00* Test Item Value Reference Range Comments TROPONIN I RAPID (test code=TROPIRAP) 0.00 ng/mL 0.00-0.079 ISTAT TROPONIN I CRITERIA0.00-0.08 ng/mL - Negative>0.08 ng/mL - Positive The use of serial sampling and testing protocol is arecommended practice.An elevated troponin level alone is often not sufficient fordiagnosis of myocardial infarction. Troponin results obtained by different assays may vary.Evaluation of the extent of myocardial damage based onincrease of troponin would be valid only if similarmethodology is used. CBC W/AUTO [id number] 15:11:00* Test Item Value Reference Range Comments WHITE BLOOD CELL (test code=WBC) 6.0 x10 3/uL 5.0-12.0 RED BLOOD CELL (test code=RBC) 4.97 x10 6/uL 4.20-5.40 HEMOGLOBIN (test code=HGB) 13.5 g/dL 12.0-16.0 HEMATOCRIT (test code=HCT) 41.9 % 36.0-46.0 MEAN CELL VOLUME (test code=MCV) 84 fL 81-99 MEAN CELL HGB (test code=MCH) 27.2 pg 27-31 MEAN CELL HGB CONCENTRATION (test code=MCHC) 32.2 g/dL 33-37 RED CELL DISTRIBUTION WIDTH (test code=RDW) 14.5 % 11.5-15.5 PLATELET COUNT (test code=PLT) 239 x10 3/uL 130-400 MEAN PLATELET VOLUME (test code=MPV) 9.5 fL 9.4-16.4 NEUTROPHIL % (test code=NT%) 63.0 % 43-65 IMMATURE GRANULOCYTE % (test code=IG%) 0.5 % 0.0-2.0 LYMPHOCYTE % (test code=LY%) 27.3 % 20.5-45.5 MONOCYTE % (test code=MO%) 6.5 % 5.5-11.7 EOSINOPHIL % (test code=EO%) 2.5 % 0.9-2.9 BASOPHIL % (test code=BA%) 0.2 % 0.2-1.0 NUCLEATED RBC % (test code=NRBC%) 0.0 % 0-1.0 NEUTROPHIL # (test code=NT#) 3.81 x10 3/uL 2.2-4.8 IMMATURE GRANULOCYTE # (test code=IG#) 0.03 x10 3/uL 0-0.03 LYMPHOCYTE # (test code=LY#) 1.65 x10 3/uL 1.3-2.9 MONOCYTE # (test code=MO#) 0.39 x10 3/uL 0.3-0.8 EOSINOPHIL # (test code=EO#) 0.15 x10 3/uL 0.0-0.2 BASOPHIL # (test code=BA#) 0.01 x10 3/uL 0.0-0.1 LACTIC ACID [id number] 15:01:00* Test Item Value Reference Range Comments LACTIC ACID POC (test code=LACTP) 2.26 mmol/L 0.7-2.0 - CT CHEST W/O [id number] 20:46:00 FAX: Paul Santiago MD [phone] [place]: St: REG Name: CÉSAR KENNEY [facility] : 2 Age/S: 48/F [address] Unit: [id number] Loc: [place] [address] Phys: Maryanne Elizondo MD Acct: [id number] Dis Date: Status: REG ER PHONE #: [phone] Exam Date: 10/26/20182025 FAX #: [phone] Reason: rt sided chest pain EXAMS: CPT CODE: [id number] CT CHEST W/O CONTRAST [id number] Location: T18 Chest CT , 10/26/18 TECHNIQUE: Chest CT without IV contrast was perfo rmed on a helical scanner. Contiguous direct 5mm axial slice thickness acq uired, scanning from thoracic inlet through the diaphragms.. The examination was performed on updated helical CT scanner utilizing low-dose radiation technique. Automatic exposure control was utilized to reduce r adiation dosage CLINICAL HISTORY: Right-sided chest pain, or prese ntation COMPARISON EXAMS: 10/26/18 chest x-ray exam. The exam is a lso being correlated with the chest CT exam of 06/17/18 FIN DINGS: The previously seen lobulated right middle lobe density has more the appearance of scarring with tiny calcific density and linear, component identified without masslike features previously identified in the right middle lobe. No significant hematoma or abnormal air collection identified. There is however a new tiny noncalcified pulmonary nodule seen in the posterior medial aspect of the right lower lobe seen on images 37 and 38. This finding measures approximately 4 to 5 mm size. It is likely benign. If patient is at high risk for malignant process, follow-up CT ex am would be advised in approximately 12 months. Correlation with biopsy fi ndings of the prior right middle lobe density advised. No evolving infiltr ates are identified. No acute fracture or aggressively destructive osseous process. No pathological mediastinal or hilar adenopathy is not seen. Heart size within normal limits. No cardiac decompensation seen. Upper abdominal structures visualized are unremarkable. Patient status post cholecystectomy IMPRESSION: Nonvi sualization of lobulated bilobed right middle lobe density which has und ergone biopsy with currently the finding having the appearance of mild s carring PAGE 1 Signed Report (CONTINUED) FAX: Paul Santiago MD [phone] [place]: St: REG Name: CÉSAR ANGEL [facility] : 1970 Age/S: 48/F [address] Unit: [id number] Loc: [place] [address] Phys: Maryanne Elizondo MD Acct: [id number] Dis Date: Status: REG ER PHONE #: [phone] Exam Date: 10/26/20182025 FAX #: [phone] Reason: rt sided chest pain EXAMS: CPT CODE: [id number] CT CHEST W/O CONTRAST 97392 <Continued> Probable benign pleural-based noncalcified pulmonary nodule measuring 4 to 5 mm size identified in the right lower lobe likely benig n. No further assessment felt to be warranted unless patient is at high risk for malignant process. If patient is at high risk for malignant process than a 12 month follow-up be advised No acute car diopulmonary process at 2045 Reported and signed by: Desirae Sanchez MD CC: Paul Castillo MD Technologist: Milena Wills; Dena Hui Trnscrd Dt/Tm: 10/26/2018 (2045) [email or web address] Orig Print D/T: S: 10/26/2018 (2048 PAGE 2 Signed Report LACTIC ACID POC 2018-10-26 18:41:00* Test Item Value Reference Range Comments LACTIC ACID POC (test code=LACTP) 0.70 mmol/L 0.7-2.0 - XR CHEST 1 [id number] 16:15:00 FAX: Paul Santiago MD [phone] [place]: St: REG Name: CÉSAR BLAKE [facility] : [birth year] Age/S: 48/F [address] Unit #: [id number] Loc: [place] [address] Phys: Wade Tomlin Acct: [id number] Dis Date: Status: REG ER PHONE #: [phone] Exam Date: 10/26/2018 1552 FAX #: [phone] Reason: CODE SEPSIS EXAMS: CPT CODE: [id number] XR CHEST 1 V 75691 EXAMINATION: - XR CHEST 1 V. LOCATION: S17. HISTORY: CODE SEPSIS COMPAR URSULA: 10/19/18. Chest CT 06/17/18. FINDINGS: Examinatio n is limited due to portable technique, patient body habitus and low lung volumes. Cardiac silhouette/Mediastinal contour: Prominence of ca rdiac silhouette. Atherosclerotic calcification of aortic arch. Lungs: No focal consolidation. No large pleural effusion. Right basilar airspace opacities noted. Previously noted right middle lobe nodule is not seen radiographically. Osseous Structures: Degenerative changes of thoracic spine. Postoperative changes involving left shoulder. There appears to be resorption of distal right clavicle, nonspecific. Additional Findings: Postoperative clips project over right upper abdo men. IMPRESSION: Right basilar airspace opac ity noted, nonspecific, consider CT. Previously noted right mi ddle lobe nodule is not appreciated radiographically, correlate with bio psy performed on 06/22/2018. at 6177 Reported and signed by: Todd Saab MD CC: Paul Castillo MD Technologist: Shea Oh; STUDENT 2ND YEAR [employer] Date/Time/By: 10/26/2018 (4516) : By: [email or web address] PAGE 1 Signed Report FAX: Paul Santiago MD [phone] [place]: St: REG --------- Name: CÉSAR ANGEL [facility] : 1970 Age/S: 48/F [address] Un it #: [id number] Loc: [place] [address] Phys: Wade Tomlin Acct: [id number] Dis Date: Status: REG ER PH ONE #: [phone] Exam Date: 10/26/2018 1552 FAX #: [phone] Reason: CODE SEPSIS EXAMS: CPT CODE: [id number] XR CHEST 1 V 79750 <Continued> Orig Print D/T: S: 10/26/2018 (5494) PAGE 2 Signed Report PROCALCITONIN (PCT)2018-10-26 15:33:00* Test Item Value Reference Range Comments PROCALCITONIN (PCT) (test code=PROCAL) < 0.05 NG/ML Procalcitonin (PCT) Normal Value: <0.05 NG/ML <0.5 NG/ML - low risk of severe sepsis and/or septic shock>2.0 NG/ML - high risk of severe sepsis and/or septic shock PCT concentrations between 0.5 and 2.0 NG/ML should beinterpreted taking into account the patient's history.It is recommended to retest PCT within 6-24 hours if anyconcentrations between 0.5-2.0 NG/ML are obtained. BASIC METABOLIC [id number] 15:18:00* Test Item Value Reference Range Comments SODIUM (test code=NA) 142 mmol/L 137-145 POTASSIUM (test code=K) 4.5 mmol/L 3.4-5.0 CHLORIDE (test code=CL) 102 mmol/L 98-107 CARBON DIOXIDE (test code=CO2) 30 mmol/L 22-30 GLUCOSE (test code=GLU) 111 mg/dL 74-106 BLOOD UREA NITROGEN (test code=BUN) 18 mg/dL 7-17 GLOMERULAR FILTRATION RATE (test code=GFR) 71 >60 The estimated glomerular filtration rate is computed usingpatient race, age (>18), sex, and serum creatinine. If anyof the needed data elements are missing the Laboratory cannot compute an estimation of the glomerular filtration rate. CREATININE (test code=CREAT) 0.9 mg/dL 0.5-1.0 CALCIUM (test code=CA) 9.9 mg/dL 8.4-10.2 LIVER FUNCTION [id number] 15:18:00* Test Item Value Reference Range Comments TOTAL PROTEIN (test code=PROT) 7.0 g/dL 6.3-8.2 ALBUMIN (test code=ALB) 3.9 g/dL 3.5-5.0 BILIRUBIN TOTAL (test code=BILT) 0.6 mg/dL 0.2-1.3 BILIRUBIN CONJUGATED (test code=BILCON) 0 mg/dL 0-0.3 ~~~~~~~~~~~~~~~~~~~~~~~~~~~~~~~~~~~~~~~~~~~~~~~~~~~~~~~~~~~~CONJUGATED BILIRUBIN IS THE REPLACEMENT ASSAY FOR DIRECTBILIRUBIN.~~~~~~~~~~~~~~~~~~~~~~~~~~~~~~~~~~~~~~~~~~~~~~~~~~~~~~~~~~~~ BILIRUBIN UNCONJUGATED (test code=BILUNC) 0 mg/dL 0-1.1 SGOT/AST (test code=AST) 15 U/L 15-46 SGPT/ALT (test code=ALT) 17 U/L 13-69 ALKALINE PHOSPHATASE (test code=ALKP) 85 U/L 38-126 CBC W/AUTO [id number] 15:16:00* Test Item Value Reference Range Comments WHITE BLOOD CELL (test code=WBC) 9.8 x10 3/uL 5.0-12.0 RED BLOOD CELL (test code=RBC) 5.35 x10 6/uL 4.20-5.40 HEMOGLOBIN (test code=HGB) 14.5 g/dL 12.0-16.0 HEMATOCRIT (test code=HCT) 46.7 % 36.0-46.0 MEAN CELL VOLUME (test code=MCV) 87 fL 81-99 MEAN CELL HGB (test code=MCH) 27.1 pg 27-31 MEAN CELL HGB CONCENTRATION (test code=MCHC) 31.0 g/dL 33-37 RED CELL DISTRIBUTION WIDTH (test code=RDW) 15.0 % 11.5-15.5 PLATELET COUNT (test code=PLT) 234 x10 3/uL 130-400 MEAN PLATELET VOLUME (test code=MPV) 9.5 fL 9.4-16.4 NEUTROPHIL % (test code=NT%) 59.8 % 43-65 IMMATURE GRANULOCYTE % (test code=IG%) 1.5 % 0.0-2.0 LYMPHOCYTE % (test code=LY%) 29.4 % 20.5-45.5 MONOCYTE % (test code=MO%) 8.3 % 5.5-11.7 EOSINOPHIL % (test code=EO%) 0.7 % 0.9-2.9 BASOPHIL % (test code=BA%) 0.3 % 0.2-1.0 NUCLEATED RBC % (test code=NRBC%) 0.0 % 0-1.0 NEUTROPHIL # (test code=NT#) 5.84 x10 3/uL 2.2-4.8 IMMATURE GRANULOCYTE # (test code=IG#) 0.15 x10 3/uL 0-0.03 LYMPHOCYTE # (test code=LY#) 2.88 x10 3/uL 1.3-2.9 MONOCYTE # (test code=MO#) 0.81 x10 3/uL 0.3-0.8 EOSINOPHIL # (test code=EO#) 0.07 x10 3/uL 0.0-0.2 BASOPHIL # (test code=BA#) 0.03 x10 3/uL 0.0-0.1 UA RFLX MICR CULT IF [id number] 15:15:00* Test Item Value Reference Range Comments UA COLOR (test code=COLU) Yellow Yellow UA APPEARANCE (test code=APPU) Slightly-Cloudy Clear UA GLUCOSE DIPSTICK (test code=DGLUU) Negative Negative UA BILIRUBIN DIPSTICK (test code=BILU) Negative Negative UA KETONE DIPSTICK (test code=KETU) Negative mg/dL Negative UA SPECIFIC GRAVITY (test code=SGU) 1.019 <1.030 UA BLOOD DIPSTICK (test code=YUMI) Negative Negative UA PH DIPSTICK (test code=RIANNA) 5.0 5.0-8.0 UA PROTEIN DIPSTICK (test code=PROU) NEGATIVE mg/dL Negative UA UROBILINOGEN DIPSTICK (test code=URO) Negative mg/dL Negative UA NITRITE DIPSTICK (test code=ANITHA) Negative Negative UA LEUKOCYTE ESTERASE DIPSTICK (test code=LEUU) TRACE Negative UA WBC (test code=WBCUR) 4-5 /HPF <4-5 <10 WBC/HPF=PYURIA ABSENT URINE CULTURE NOT INDICATED UA RBC (test code=RBCU) 0-3 /HPF <4-5 UA BACTERIA (test code=BACU) None /HPF None-Rare UA SQUAMOUS CELLS (test code=SQU) 6-15 (FEW) /HPF 0-5 (RARE) UA MUCUS (test code=MUCU) Rare /LPF <Rare Indication for culture: Sev. Sepsis-no other srcTROPONIN I [id number] 15:03:00* Test Item Value Reference Range Comments TROPONIN I RAPID (test code=TROPIRAP) 0.00 ng/mL 0.00-0.079 ISTAT TROPONIN I CRITERIA0.00-0.08 ng/mL - Negative>0.08 ng/mL - Positive The use of serial sampling and testing protocol is arecommended practice.An elevated troponin level alone is often not sufficient fordiagnosis of myocardial infarction. Troponin results obtained by different assays may vary.Evaluation of the extent of myocardial damage based onincrease of troponin would be valid only if similarmethodology is used. LACTIC ACID [id number] 14:53:00* Test Item Value Reference Range Comments LACTIC ACID POC (test code=LACTP) 2.86 mmol/L 0.7-2.0 BASIC METABOLIC [id number] 07:01:00* Test Item Value Reference Range Comments SODIUM (test code=NA) 136 mmol/L 137-145 POTASSIUM (test code=K) 4.9 mmol/L 3.4-5.0 CHLORIDE (test code=CL) 100 mmol/L 98-107 CARBON DIOXIDE (test code=CO2) 32 mmol/L 22-30 GLUCOSE (test code=GLU) 103 mg/dL 74-106 BLOOD UREA NITROGEN (test code=BUN) 16 mg/dL 7-17 GLOMERULAR FILTRATION RATE (test code=GFR) 71 >60 The estimated glomerular filtration rate is computed usingpatient race, age (>18), sex, and serum creatinine. If anyof the needed data elements are missing the Laboratory cannot compute an estimation of the glomerular filtration rate. CREATININE (test code=CREAT) 0.9 mg/dL 0.5-1.0 CALCIUM (test code=CA) 9.2 mg/dL 8.4-10.2 CBC W/AUTO [id number] 06:44:00* Test Item Value Reference Range Comments WHITE BLOOD CELL (test code=WBC) 7.0 x10 3/uL 5.0-12.0 RED BLOOD CELL (test code=RBC) 4.91 x10 6/uL 4.20-5.40 HEMOGLOBIN (test code=HGB) 13.5 g/dL 12.0-16.0 HEMATOCRIT (test code=HCT) 42.0 % 36.0-46.0 MEAN CELL VOLUME (test code=MCV) 86 fL 81-99 MEAN CELL HGB (test code=MCH) 27.5 pg 27-31 MEAN CELL HGB CONCENTRATION (test code=MCHC) 32.1 g/dL 33-37 RED CELL DISTRIBUTION WIDTH (test code=RDW) 15.0 % 11.5-15.5 PLATELET COUNT (test code=PLT) 188 x10 3/uL 130-400 MEAN PLATELET VOLUME (test code=MPV) 9.2 fL 9.4-16.4 NEUTROPHIL % (test code=NT%) 61.8 % 43-65 IMMATURE GRANULOCYTE % (test code=IG%) 1.0 % 0.0-2.0 LYMPHOCYTE % (test code=LY%) 29.1 % 20.5-45.5 MONOCYTE % (test code=MO%) 5.8 % 5.5-11.7 EOSINOPHIL % (test code=EO%) 2.2 % 0.9-2.9 BASOPHIL % (test code=BA%) 0.1 % 0.2-1.0 NUCLEATED RBC % (test code=NRBC%) 0.0 % 0-1.0 NEUTROPHIL # (test code=NT#) 4.30 x10 3/uL 2.2-4.8 IMMATURE GRANULOCYTE # (test code=IG#) 0.07 x10 3/uL 0-0.03 LYMPHOCYTE # (test code=LY#) 2.02 x10 3/uL 1.3-2.9 MONOCYTE # (test code=MO#) 0.40 x10 3/uL 0.3-0.8 EOSINOPHIL # (test code=EO#) 0.15 x10 3/uL 0.0-0.2 BASOPHIL # (test code=BA#) 0.01 x10 3/uL 0.0-0.1 BASIC METABOLIC [id number] 04:47:00* Test Item Value Reference Range Comments SODIUM (test code=NA) 137 mmol/L 137-145 POTASSIUM (test code=K) 4.6 mmol/L 3.4-5.0 CHLORIDE (test code=CL) 100 mmol/L 98-107 CARBON DIOXIDE (test code=CO2) 31 mmol/L 22-30 GLUCOSE (test code=GLU) 98 mg/dL 74-106 BLOOD UREA NITROGEN (test code=BUN) 17 mg/dL 7-17 GLOMERULAR FILTRATION RATE (test code=GFR) 71 >60 The estimated glomerular filtration rate is computed usingpatient race, age (>18), sex, and serum creatinine. If anyof the needed data elements are missing the Laboratory cannot compute an estimation of the glomerular filtration rate. CREATININE (test code=CREAT) 0.9 mg/dL 0.5-1.0 CALCIUM (test code=CA) 9.2 mg/dL 8.4-10.2 CBC W/AUTO [id number] 04:32:00* Test Item Value Reference Range Comments WHITE BLOOD CELL (test code=WBC) 8.2 x10 3/uL 5.0-12.0 RED BLOOD CELL (test code=RBC) 5.04 x10 6/uL 4.20-5.40 HEMOGLOBIN (test code=HGB) 13.7 g/dL 12.0-16.0 HEMATOCRIT (test code=HCT) 43.1 % 36.0-46.0 MEAN CELL VOLUME (test code=MCV) 86 fL 81-99 MEAN CELL HGB (test code=MCH) 27.2 pg 27-31 MEAN CELL HGB CONCENTRATION (test code=MCHC) 31.8 g/dL 33-37 RED CELL DISTRIBUTION WIDTH (test code=RDW) 14.7 % 11.5-15.5 PLATELET COUNT (test code=PLT) 203 x10 3/uL 130-400 MEAN PLATELET VOLUME (test code=MPV) 9.4 fL 9.4-16.4 NEUTROPHIL % (test code=NT%) 57.7 % 43-65 IMMATURE GRANULOCYTE % (test code=IG%) 1.3 % 0.0-2.0 LYMPHOCYTE % (test code=LY%) 33.6 % 20.5-45.5 MONOCYTE % (test code=MO%) 5.3 % 5.5-11.7 EOSINOPHIL % (test code=EO%) 1.7 % 0.9-2.9 BASOPHIL % (test code=BA%) 0.4 % 0.2-1.0 NUCLEATED RBC % (test code=NRBC%) 0.0 % 0-1.0 NEUTROPHIL # (test code=NT#) 4.72 x10 3/uL 2.2-4.8 IMMATURE GRANULOCYTE # (test code=IG#) 0.11 x10 3/uL 0-0.03 LYMPHOCYTE # (test code=LY#) 2.75 x10 3/uL 1.3-2.9 MONOCYTE # (test code=MO#) 0.43 x10 3/uL 0.3-0.8 EOSINOPHIL # (test code=EO#) 0.14 x10 3/uL 0.0-0.2 BASOPHIL # (test code=BA#) 0.03 x10 3/uL 0.0-0.1 LIPID PROFILE (CORONARY RISK)2018-10-20 04:55:00* Test Item Value Reference Range Comments TRIGLYCERIDES (test code=TRIG) 212 mg/dL TRIGLYCERIDES REFERENCE RANGE:Normal: <150 mg/dLBorderline High: 150-199 mg/dLHigh: 200-499 mg/dLVery High: >=500 mg/dL CHOLESTEROL (test code=CHOL) 145 mg/dL CHOLESTEROL REFERENCE RANGE:DESIRABLE: < 200 mg/dLBORDERLINE: 200-239 mg/dLHIGH: >=240 mg/dL HDL CHOLESTEROL (test code=HDL) 49 mg/dL 40-59 LIPOPROTEIN LDL (test code=LDLC) 78.57 mg/dL 32-99 CORONARY RISK FACTOR (test code=RISK) 2.96 CHOL/HDL RISK MALE: 1/2 AVG 3.43 FEMALE: 1/2 AVG 3.27 AVG 4.97 AVG 4.44 2X AVG 9.55 2X AVG 7.05 3X AVG 23.39 3X AVG 11.04~~~~~~~~~~~~~~~~~~~~~~~~~~~~~~~~~~~~~~~~~~~~~~~~~~~~~~~~~~~~National Cholesterol Education (NCEP) Guidelines:~~~~~~~~~~~~~~~~~~~~~~~~~~~~~~~~~~~~~~~~~~~~~~~~~~~~~~~~~~~~ HDL Cholesterol<40mg/dL: HDL Cholesterol (Major risk factor for CHD)>60mg/dL: HDL Cholesterol (Negative risk factor for CHD)40-59mg/dL: Borderline Risk LDL Cholesterol<100mg/dL: Desirable LDL-C tzepagoprlyuh393-829sz/dL: Borderline High Risk LDL-C rmhysbymolvqg905-630zp/dL: High risk LDL-C concentration HDL-LDL Cholesterol is affected by a number of factors suchas smoking, age and sex.~~~~~~~~~~~~~~~~~~~~~~~~~~~~~~~~~~~~~~~~~~~~~~~~~~~~~~~~~~~~ LIPID PROFILE (CORONARY RISK)2018-10-20 04:45:00* Test Item Value Reference Range Comments TRIGLYCERIDES (test code=TRIG) 212 mg/dL TRIGLYCERIDES REFERENCE RANGE:Normal: <150 mg/dLBorderline High: 150-199 mg/dLHigh: 200-499 mg/dLVery High: >=500 mg/dL CHOLESTEROL (test code=CHOL) 145 mg/dL CHOLESTEROL REFERENCE RANGE:DESIRABLE: < 200 mg/dLBORDERLINE: 200-239 mg/dLHIGH: >=240 mg/dL HDL CHOLESTEROL (test code=HDL) 49 mg/dL 40-59 LIPOPROTEIN LDL (test code=LDLC) mg/dL 32-99 CORONARY RISK FACTOR (test code=RISK) 2.96 CHOL/HDL RISK MALE: 1/2 AVG 3.43 FEMALE: 1/2 AVG 3.27 AVG 4.97 AVG 4.44 2X AVG 9.55 2X AVG 7.05 3X AVG 23.39 3X AVG 11.04~~~~~~~~~~~~~~~~~~~~~~~~~~~~~~~~~~~~~~~~~~~~~~~~~~~~~~~~~~~~National Cholesterol Education (NCEP) Guidelines:~~~~~~~~~~~~~~~~~~~~~~~~~~~~~~~~~~~~~~~~~~~~~~~~~~~~~~~~~~~~ HDL Cholesterol<40mg/dL: HDL Cholesterol (Major risk factor for CHD)>60mg/dL: HDL Cholesterol (Negative risk factor for CHD)40-59mg/dL: Borderline Risk LDL Cholesterol<100mg/dL: Desirable LDL-C hzdhgfmzxiytl361-408zi/dL: Borderline High Risk LDL-C olicychecgzlf188-918bk/dL: High risk LDL-C concentration HDL-LDL Cholesterol is affected by a number of factors suchas smoking, age and sex.~~~~~~~~~~~~~~~~~~~~~~~~~~~~~~~~~~~~~~~~~~~~~~~~~~~~~~~~~~~~ BASIC METABOLIC [id number] 04:40:00* Test Item Value Reference Range Comments SODIUM (test code=NA) 136 mmol/L 137-145 POTASSIUM (test code=K) 3.7 mmol/L 3.4-5.0 CHLORIDE (test code=CL) 101 mmol/L 98-107 CARBON DIOXIDE (test code=CO2) 24 mmol/L 22-30 GLUCOSE (test code=GLU) 147 mg/dL 74-106 BLOOD UREA NITROGEN (test code=BUN) 19 mg/dL 7-17 GLOMERULAR FILTRATION RATE (test code=GFR) 71 >60 The estimated glomerular filtration rate is computed usingpatient race, age (>18), sex, and serum creatinine. If anyof the needed data elements are missing the Laboratory cannot compute an estimation of the glomerular filtration rate. CREATININE (test code=CREAT) 0.9 mg/dL 0.5-1.0 CALCIUM (test code=CA) 8.8 mg/dL 8.4-10.2 LACTIC [id number] 04:40:00* Test Item Value Reference Range Comments LACTIC ACID (test code=LACT) 1.5 mmol/L 0.7-2.0 CBC W/AUTO [id number] 04:17:00* Test Item Value Reference Range Comments WHITE BLOOD CELL (test code=WBC) 9.1 x10 3/uL 5.0-12.0 RED BLOOD CELL (test code=RBC) 4.89 x10 6/uL 4.20-5.40 HEMOGLOBIN (test code=HGB) 13.3 g/dL 12.0-16.0 HEMATOCRIT (test code=HCT) 41.2 % 36.0-46.0 MEAN CELL VOLUME (test code=MCV) 84 fL 81-99 MEAN CELL HGB (test code=MCH) 27.2 pg 27-31 MEAN CELL HGB CONCENTRATION (test code=MCHC) 32.3 g/dL 33-37 RED CELL DISTRIBUTION WIDTH (test code=RDW) 14.8 % 11.5-15.5 PLATELET COUNT (test code=PLT) 199 x10 3/uL 130-400 MEAN PLATELET VOLUME (test code=MPV) 9.5 fL 9.4-16.4 NEUTROPHIL % (test code=NT%) 61.5 % 43-65 IMMATURE GRANULOCYTE % (test code=IG%) 1.4 % 0.0-2.0 LYMPHOCYTE % (test code=LY%) 28.5 % 20.5-45.5 MONOCYTE % (test code=MO%) 7.5 % 5.5-11.7 EOSINOPHIL % (test code=EO%) 0.8 % 0.9-2.9 BASOPHIL % (test code=BA%) 0.3 % 0.2-1.0 NUCLEATED RBC % (test code=NRBC%) 0.0 % 0-1.0 NEUTROPHIL # (test code=NT#) 5.59 x10 3/uL 2.2-4.8 IMMATURE GRANULOCYTE # (test code=IG#) 0.13 x10 3/uL 0-0.03 LYMPHOCYTE # (test code=LY#) 2.59 x10 3/uL 1.3-2.9 MONOCYTE # (test code=MO#) 0.68 x10 3/uL 0.3-0.8 EOSINOPHIL # (test code=EO#) 0.07 x10 3/uL 0.0-0.2 BASOPHIL # (test code=BA#) 0.03 x10 3/uL 0.0-0.1 LACTIC ACID [id number] 12:15:00* Test Item Value Reference Range Comments LACTIC ACID POC (test code=LACTP) 2.89 mmol/L 0.7-2.0 - XR CHEST 2 [id number] 12:14:00 FAX: Paul Santiago MD [phone] [place]: St: REG Name: CÉSAR BLAKE [facility] : [birth year] Age/S: 48/F [address] Unit #: [id number] Loc: [place] [address] Phys: Olvin Jaffe [employer] Acct: [id number] Dis Date: Status: REG ER PHONE #: [phone] Exam Date: 10/19/2018 1200 FAX #: [phone] Reason: r/o pneumonia, hx of COPD EXAMS: CPT CODE: [id number] XR CHEST 2 V 41393 Site ID: [id number] HISTORY: COPD, possible pneumonia COMPARISON: Chest x-ray October 15, 2018 FINDINGS: Evolving right medial lung base consolidation likely reflects pneumonia. Left lung is clear. The heart and pulmonary vasculature is normal. Osseous structures are unrem arkable. IMPRESSION: Evolving right medial maximus g base consolidation likely reflects pneumonia. [employer] l[employer] Signed by Knvg Florian MD on 10/19/2018 at 1214 Report ed and signed by: Kvng Florian MD CC: Paul Castillo MD Technologist: Indira Albarran Trnscrd Date/Time/By: 10/19/2018 (0562) : By: [email or web address] PAGE 1 Signed Report FAX: Paul Santiago MD [phone] [place]: St: REG----- Name : CÉSAR ANGEL [facility] : Age/S: 48/F [address] Unit #: [id number] Loc: [place] [address] Phys: Carlos Jaffe [employer] O[employer] Acct: [id number] Dis Date : Status: REG ER PHONE #: Exam Date: 10/19/2018 1200 FAX #: [phone] Reason: r/o pneumonia, hx of COPD EXAMS: CPT CODE: [id number] XR CHEST 2 V 70536 <Continued> Orig Print D/T: S: 10/19/2018 (4729) PAGE 2 Signed Report COMPREHENSIVE METABOLIC [id number] 11:57:00* Test Item Value Reference Range Comments SODIUM (test code=NA) 138 mmol/L 137-145 POTASSIUM (test code=K) 4.3 mmol/L 3.4-5.0 CHLORIDE (test code=CL) 101 mmol/L 98-107 CARBON DIOXIDE (test code=CO2) 24 mmol/L 22-30 GLUCOSE (test code=GLU) 162 mg/dL 74-106 BLOOD UREA NITROGEN (test code=BUN) 18 mg/dL 7-17 GLOMERULAR FILTRATION RATE (test code=GFR) 82 >60 The estimated glomerular filtration rate is computed usingpatient race, age (>18), sex, and serum creatinine. If anyof the needed data elements are missing the Laboratory cannot compute an estimation of the glomerular filtration rate. CREATININE (test code=CREAT) 0.8 mg/dL 0.5-1.0 TOTAL PROTEIN (test code=PROT) 7.7 g/dL 6.3-8.2 ALBUMIN (test code=ALB) 4.4 g/dL 3.5-5.0 CALCIUM (test code=CA) 9.5 mg/dL 8.4-10.2 BILIRUBIN TOTAL (test code=BILT) 0.6 mg/dL 0.2-1.3 BILIRUBIN CONJUGATED (test code=BILCON) 0 mg/dL 0-0.3 ~~~~~~~~~~~~~~~~~~~~~~~~~~~~~~~~~~~~~~~~~~~~~~~~~~~~~~~~~~~~CONJUGATED BILIRUBIN IS THE REPLACEMENT ASSAY FOR DIRECTBILIRUBIN.~~~~~~~~~~~~~~~~~~~~~~~~~~~~~~~~~~~~~~~~~~~~~~~~~~~~~~~~~~~~ BILIRUBIN UNCONJUGATED (test code=BILUNC) 0 mg/dL 0-1.1 SGOT/AST (test code=AST) 23 U/L 15-46 SGPT/ALT (test code=ALT) 19 U/L 13-69 ALKALINE PHOSPHATASE (test code=ALKP) 88 U/L 38-126 UA RFLX MICR CULT IF [id number] 11:57:00* Test Item Value Reference Range Comments UA COLOR (test code=COLU) Yellow Yellow UA APPEARANCE (test code=APPU) Cloudy Clear UA GLUCOSE DIPSTICK (test code=DGLUU) Negative Negative UA BILIRUBIN DIPSTICK (test code=BILU) Negative Negative UA KETONE DIPSTICK (test code=KETU) Negative mg/dL Negative UA SPECIFIC GRAVITY (test code=SGU) 1.010 <1.030 UA BLOOD DIPSTICK (test code=YUMI) 1+ Negative UA PH DIPSTICK (test code=RIANNA) 6.0 5.0-8.0 UA PROTEIN DIPSTICK (test code=PROU) NEGATIVE mg/dL Negative UA UROBILINOGEN DIPSTICK (test code=URO) Negative mg/dL Negative UA NITRITE DIPSTICK (test code=ANITHA) Negative Negative UA LEUKOCYTE ESTERASE DIPSTICK (test code=LEUU) 1+ Negative UA WBC (test code=WBCUR) 11-20 /HPF <4-5 >10 WBC/HPF=PYURIA PRESENT URINE CULTURE PROCESSED UA RBC (test code=RBCU) 6-10 /HPF <4-5 UA BACTERIA (test code=BACU) 3+ /HPF None-Rare UA SQUAMOUS CELLS (test code=SQU) >25 (MANY) /HPF 0-5 (RARE) UA TRANSITIONAL CELLS (test code=TRANU) Rare /HPF <Rare SOURCE OF URINE: CLEAN CATCHless than 18 yrs old, neutropenic, or urological kenia juanita? NOPrimary Indication for Culture: OtherOther Indication: if indicated PROTHROMBIN [id number] 11:54:00* Test Item Value Reference Range Comments PROTHROMBIN TIME PATIENT (test code=PTP) 11.4 SECONDS 9.2-12.1 INTERNATIONAL NORMAL RATIO (test code=INR) 1.0 The INR is to be used only for monitoring ORAL ANTICOAGULANTTHERAPY. Indication INR Value1. Prophylaxis/treatment of: Venous Thrombosis, Pulmonary Embolism 2.0 - 3.02. Prevention of systemic embolism from: Tissue heart valves 2.0 - 3.0 Acute myocardial infarction (to present systemic embolism)* 2.0 - 3.0 Valvular heart disease 2.0 - 3.0 Atrial fibrillation 2.0 - 3.03. Mechanical prosthetic valves (high risk) 2.5 - 3.5 * If oral anticoagulant therapy is elected to preventrecurrent myocardial infarction, an INR of 2.5-3.5 isrecommended, consistent with Food and Drug Administrationrecommendations. THROMBOPLASTIN TIME [id number] 11:54:00* Test Item Value Reference Range Comments THROMBOPLASTIN TIME PARTIAL (test code=PTT) 23.9 SECONDS 23.4-37.0 Therapeutic Range for Heparin EFFECTIVE 11/16/12 Heparin IU/mL aPTT Seconds0.3 64.30.7 88.8 TROPONIN I [id number] 11:47:00* Test Item Value Reference Range Comments TROPONIN I RAPID (test code=TROPIRAP) 0.01 ng/mL 0.00-0.079 ISTAT TROPONIN I CRITERIA0.00-0.08 ng/mL - Negative>0.08 ng/mL - Positive The use of serial sampling and testing protocol is arecommended practice.An elevated troponin level alone is often not sufficient fordiagnosis of myocardial infarction. Troponin results obtained by different assays may vary.Evaluation of the extent of myocardial damage based onincrease of troponin would be valid only if similarmethodology is used. CBC W/AUTO [id number] 11:46:00* Test Item Value Reference Range Comments WHITE BLOOD CELL (test code=WBC) 13.5 x10 3/uL 5.0-12.0 RED BLOOD CELL (test code=RBC) 5.56 x10 6/uL 4.20-5.40 HEMOGLOBIN (test code=HGB) 15.1 g/dL 12.0-16.0 HEMATOCRIT (test code=HCT) 46.8 % 36.0-46.0 MEAN CELL VOLUME (test code=MCV) 84 fL 81-99 MEAN CELL HGB (test code=MCH) 27.2 pg 27-31 MEAN CELL HGB CONCENTRATION (test code=MCHC) 32.3 g/dL 33-37 RED CELL DISTRIBUTION WIDTH (test code=RDW) 14.6 % 11.5-15.5 PLATELET COUNT (test code=PLT) 258 x10 3/uL 130-400 MEAN PLATELET VOLUME (test code=MPV) 9.8 fL 9.4-16.4 NEUTROPHIL % (test code=NT%) 85.1 % 43-65 IMMATURE GRANULOCYTE % (test code=IG%) 1.2 % 0.0-2.0 LYMPHOCYTE % (test code=LY%) 8.3 % 20.5-45.5 MONOCYTE % (test code=MO%) 5.2 % 5.5-11.7 EOSINOPHIL % (test code=EO%) 0.0 % 0.9-2.9 BASOPHIL % (test code=BA%) 0.2 % 0.2-1.0 NUCLEATED RBC % (test code=NRBC%) 0.0 % 0-1.0 NEUTROPHIL # (test code=NT#) 11.48 x10 3/uL 2.2-4.8 IMMATURE GRANULOCYTE # (test code=IG#) 0.16 x10 3/uL 0-0.03 LYMPHOCYTE # (test code=LY#) 1.12 x10 3/uL 1.3-2.9 MONOCYTE # (test code=MO#) 0.70 x10 3/uL 0.3-0.8 EOSINOPHIL # (test code=EO#) 0.00 x10 3/uL 0.0-0.2 BASOPHIL # (test code=BA#) 0.03 x10 3/uL 0.0-0.1 - DUP AB/PEL/SC/[id number] 13:10:00 FAX: Paul Santiago MD [phone] [place]: St: ADM FAX: Eleuterio Ahn MD [phone] Name: CÉSAR ANGEL [facility] : 1970 Age/S: 48/F [address] Unit #: [id number] Loc: [address] [place] [address] Phys: Eleuterio Rodriguez MD Acct: [id number] Dis Date: Status: ADM IN PHONE #: [phone] Exam Date: 10/17/2018 1234 FAX #: [phone] Reason: DISCHARGE EXAMS: CPT CODE: [id number] DUP AB/PEL/SC/LTD 34592 EXAM: Ultrasound pelvis non-OB INDICATION: DISCHARGE LOCATION: [place] [address] COMPARISON: None TECHNIQUE: Pelvic and transvaginal sonography performed with mu ltiple static images reviewed. DISCUSSION: Limited due to p atient's large body habitus The uterus is of normal size and conto ur with homogeneous echotexture. 10.6 x 1.97 x 5.86 cm . Subserosal mass measuring 1.8 x 1.15 x 1.52 cm compatible with uterine fibroid. The uterus is anteverted in its position. The endometrial stripe is w ithin normal limits at 5.4 mm , without fluid within the endometrial cavit y. The right ovary measure 3.5 x 2.17 x 3.08 cm . Normal blood fl ow is seen. The left ovary is not seen . The re is no adnexal mass . There is no free fluid in cul-de-sac . IMPRESSION: 1. Uterine fibroid 2. No fr ee fluid in posterior cul-de-sac. 3. Nonvisualized left ovary This report was generated by using voice-recognition software. at 1310 Reported and signed by: Ramiro Jones M.D. PAGE 1 Signed Report (CONTINUED) FAX: Paul Santiago MD [phone] [place]: [facility]: ADM FAX: Eleuterio Ahn MD [phone] Name: CÉSAR ANGEL [facility] : 1970 Age/S: 48/F [address] Unit #: [id number] Loc: [place] [address] Phys: Eleuterio Rodriguez MD Acct: [id number] Dis Date: Status: ADM IN PHONE #: [phone] Exam Date: 10/17/2018 1234 FAX #: [phone] Reason: DISCHARGE EXAMS: CPT CODE: [id number] DUP AB/PEL/SC/LTD 92417 <Continued> CC: Paul Castillo MD; Eleuterio Rodriguez MD Technologist: ADRIAN TREVIÑO [facility] Date/Time/By: 10/17/2018 (1310) : By: Gerard PAGE 2 Signed Report FAX: Paul Santiago MD [phone] [place]: [facility]: ADM FAX: Eleuterio Ahn MD [phone] Name: CÉSAR ANGEL [facility] : 1970 Age/S: 48/F [address] Unit #: [id number] Loc: [place] [address] Phys: Eleuterio oRdriguez MD Acct: [id number] Dis Date: Status: ADM IN PHONE #: [phone] Exam Date: 10/17/2018 1234 FAX #: [phone] Reason: DISCHARGE EXAMS: CPT CODE: [id number] DUP AB/PEL/SC/LTD 65019 < Continued> Orig Print D/T: S: 10/17/2018 (3510) PAGE 3 Signed Report - US TRANSVAGINAL NON [id number] 13:10:00 FAX: Paul Santiago MD [phone] [place]: St: ADM FAX: Eleuterio Ahn MD [phone] Name: CÉSAR ANGEL [facility] : 1970 Age/S: 48/F [address] Unit #: [id number] Loc: [place] [address] Phys: Eleuterio Rodriguez MD Acct: [id number] Dis Date: Status: ADM IN PHONE #: [phone] Exam Date: 10/17/2018 1234 FAX #: [phone] Reason: See reason on US PELVIC NON OB COMPLETE EXAMS: CPT CODE: [id number] [place] [address] EXAM: Ultrasound pelvis non-OB INDICATION: [place]GE [place] [facility] [place] COMPARISON: None TECHNIQUE: Pelvic and transvaginal sonography performed with mu ltiple static images reviewed. DISCUSSION: Limited due to p atient's large body habitus The uterus is of normal size and conto ur with homogeneous echotexture. 10.6 x 1.97 x 5.86 cm . Subserosal mass measuring 1.8 x 1.15 x 1.52 cm compatible with uterine fibroid. The uterus is anteverted in its position. The endometrial stripe is w ithin normal limits at 5.4 mm , without fluid within the endometrial cavit y. The right ovary measure 3.5 x 2.17 x 3.08 cm . Normal blood fl ow is seen. The left ovary is not seen . The re is no adnexal mass . There is no free fluid in cul-de-sac . IMPRESSION: 1. Uterine fibroid 2. No fr ee fluid in posterior cul-de-sac. 3. Nonvisualized left ovary This report was generated by using voice-recognition software. at 1310 Reported and signed by: Ramiro Jones M.D. PAGE 1 Signed Report (CONTINUED) FAX: Paul Santiago MD [phone] [place]: St: ADM FAX: Eleuterio Ahn MD [phone] Name: CÉSAR ANGEL [facility] : 1970 Age/S: 48/F [address] Unit #: [id number] Loc: [address] [place] [address] Phys: Eleuterio Rodriguez MD Acct: [id number] Dis Date: Status: ADM IN PHONE #: [phone] Exam Date: 10/17/2018 1234 FAX #: [phone] Reason: See reason on US PELVIC NON OB COMPLETE EXAMS: CPT CODE: [id number] [place] [address] <Continued> CC: Paul Castillo MD; Eleuterio Rodriguez MD Technologist: ADRIAN TREVIÑO; S#: [id number] [facility]-D Trnscrd Date/Time/By: 10/17/2018 (4569) : By: RicardoHPOri PAGE 2 Signed Report FAX: Paul Santiago MD [phone] [place]: [facility]: ADM FAX: Eleuterio Ahn MD [phone] Name: CÉSAR ANGEL [facility] : 1970 Age/S: 48/F [address] Unit #: [id number] Loc: [address] [address] Phys: Eleuterio Rodriguez MD Acct: [id number] Dis Date: Status: ADM IN PHONE #: [phone] Exam Date: 10/17/2018 1234 FAX #: [phone] Reason: See reason on US PELVIC NON OB COMPLETE EXAMS: CPT CO DE: [id number] [place] [address] <Continued> Orig Print D/T: S: 10/17/2018 (3929) PAGE 3 Signed Report - US PELVIC [id number] 13:10:00 FAX: Paul Santiago MD [phone] [place]: [facility]: ADM FAX: Eleuterio Ahn MD [phone] Name: STANLEYCÉSAR SUE [facility] : 1970 Age/S: 48/F [address] Unit #: [id number] Loc: [address] [place] [address] Phys: Eleuterio Rodriguez MD Acct: [id number] Dis Date: Status: ADM IN PHONE #: [phone] Exam Date: 10/17/2018 1234 FAX #: [phone] Reason: DISCHARGE EXAMS: CPT CODE: [id number] US PELVIC COMPLETE 22017 EXAM: Ultrasound pelvis non-OB INDICATION: [place] [facility] [place]: None TECHNIQUE: Pelvic and transvaginal sonography performed with mu ltiple static images reviewed. DISCUSSION: Limited due to p atbonnie's large body habitus The uterus is of normal size and conto ur with homogeneous echotexture. 10.6 x 1.97 x 5.86 cm . Subserosal mass measuring 1.8 x 1.15 x 1.52 cm compatible with uterine fibroid. The uterus is anteverted in its position. The endometrial stripe is w ithin normal limits at 5.4 mm , without fluid within the endometrial cavit y. The right ovary measure 3.5 x 2.17 x 3.08 cm . Normal blood fl ow is seen. The left ovary is not seen . The re is no adnexal mass . There is no free fluid in cul-de-sac . IMPRESSION: 1. Uterine fibroid 2. No fr ee fluid in posterior cul-de-sac. 3. Nonvisualized left ovary This report was generated by using voice-recognition software. at 1310 Reported and signed by: Ramiro Jones M.D. PAGE 1 Signed Report (CONTINUED) FAX: Paul Santiago MD [phone] [place]: St: ADM FAX: Eleuterio Ahn MD [phone] Name: CÉSAR ANGEL [facility] : 1970 Age/S: 48/F [address] Unit #: [id number] Loc: [address] [place] [address] Phys: Eleuterio Rodriguez MD Acct: [id number] Dis Date: Status: ADM IN PHONE #: [phone] Exam Date: 10/17/2018 1234 FAX #: [phone] Reason: DISCHARGE EXAMS: CPT CODE: [id number] US PELVIC COMPLETE [address] <Continued> CC: Paul Castillo MD; Eleuterio Rodriguez MD Technologist: ADRIAN TREVIÑO [facility] Date/Time/By: 10/17/2018 (3561) : By: RicardoOri PAGE 2 Signed Report FAX: Paul Santiago MD [phone] [place]: St: ADM FAX: Eleuterio hAn MD [phone] Name: CÉSAR ANGEL [facility] : 1970 Age/S: 48/F [address] Unit #: [id number] Loc: [place] [address] Phys: Eleuterio Rodriguez MD Acct: [id number] Dis Date: Status: ADM IN PHONE #: [phone] Exam Date: 10/17/2018 1234 FAX #: [phone] Reason: DISCHARGE EXAMS: CPT CODE: [id number] US PELVIC COMPLETE [address] < Continued> Orig Print D/T: S: 10/17/2018 (0965) PAGE 3 Signed Report CARDIAC ENZYMES [id number] 00:36:00* Test Item Value Reference Range Comments TROPONIN-I (test code=TROPI) < 0.012 ng/mL 0.012-0.033 Please be advised of the updated reference ranges for the new Chemistry instrumentation. VITROS TROPONIN I CRITERIANORMAL PATIENT W/O CIRCULATING TNI: 0.012-0.033 ng/mLCIRCULATING TNI PRESENT: 0.034-0.119 ng/mL(MAY BE AT RISK OF AMI)AMI DIAGNOSTIC CUTOFF: >/=0.120 ng/mL~~~~~~~~~~~~~~~~~~~~~~~~~~~~~~~~~~~~~~~~~~~~~~~~~~~~~~~~~~~The use of serial sampling and testing protocol is arecommended practice.An elevated troponin level alone is often not sufficient fordiagnosis of myocardial infarction. Troponin results obtained by different assays may vary.Evaluation of the extent of myocardial damage based onincrease of troponin would be valid only if similarmethodology is used.~~~~~~~~~~~~~~~~~~~~~~~~~~~~~~~~~~~~~~~~~~~~~~~~~~~~~~~~~~~ CARDIAC ENZYMES [id number] 20:06:00* Test Item Value Reference Range Comments TROPONIN-I (test code=TROPI) < 0.012 ng/mL 0.012-0.033 Please be advised of the updated reference ranges for the new Chemistry instrumentation. VITROS TROPONIN I CRITERIANORMAL PATIENT W/O CIRCULATING TNI: 0.012-0.033 ng/mLCIRCULATING TNI PRESENT: 0.034-0.119 ng/mL(MAY BE AT RISK OF AMI)AMI DIAGNOSTIC CUTOFF: >/=0.120 ng/mL~~~~~~~~~~~~~~~~~~~~~~~~~~~~~~~~~~~~~~~~~~~~~~~~~~~~~~~~~~~The use of serial sampling and testing protocol is arecommended practice.An elevated troponin level alone is often not sufficient fordiagnosis of myocardial infarction. Troponin results obtained by different assays may vary.Evaluation of the extent of myocardial damage based onincrease of troponin would be valid only if similarmethodology is used.~~~~~~~~~~~~~~~~~~~~~~~~~~~~~~~~~~~~~~~~~~~~~~~~~~~~~~~~~~~ PROCALCITONIN (PCT)2018-10-15 13:05:00* Test Item Value Reference Range Comments PROCALCITONIN (PCT) (test code=PROCAL) < 0.05 NG/ML Procalcitonin (PCT) Normal Value: <0.05 NG/ML <0.5 NG/ML - low risk of severe sepsis and/or septic shock>2.0 NG/ML - high risk of severe sepsis and/or septic shock PCT concentrations between 0.5 and 2.0 NG/ML should beinterpreted taking into account the patient's history.It is recommended to retest PCT within 6-24 hours if anyconcentrations between 0.5-2.0 NG/ML are obtained. LACTIC ACID [id number] 12:55:00* Test Item Value Reference Range Comments LACTIC ACID POC (test code=LACTP) 1.36 mmol/L 0.7-2.0 TROPONIN I [id number] 12:42:00* Test Item Value Reference Range Comments TROPONIN I RAPID (test code=TROPIRAP) 0.01 ng/mL 0.00-0.079 ISTAT TROPONIN I CRITERIA0.00-0.08 ng/mL - Negative>0.08 ng/mL - Positive The use of serial sampling and testing protocol is arecommended practice.An elevated troponin level alone is often not sufficient fordiagnosis of myocardial infarction. Troponin results obtained by different assays may vary.Evaluation of the extent of myocardial damage based onincrease of troponin would be valid only if similarmethodology is used. LACTIC ACID [id number] 12:42:00* Test Item Value Reference Range Comments LACTIC ACID POC (test code=LACTP) 2.51 mmol/L 0.7-2.0 - XR CHEST 1 [id number] 12:34:00 FAX: Paul Santiago MD [phone] [place]: St: REG Name: CÉSAR BLAKE [facility] : [birth year] Age/S: 48/F [address] Unit #: [id number] Loc: [place] [address] Phys: Thea Remy B[employer] H[employer] OPERATOR Acct: [id number] Dis Date: Status: REG ER PHONE #: [phone] Exam Date: 10/15/2018 1225 FAX #: [phone] Reason: CODE SEPSIS EXAMS: CPT CODE: [id number] XR CHEST 1 V 54921 EXAM: - XR CHEST 1 V 10/15/2018 11:35 AM Location code:C3 HISTORY: 48 years-old Female with CODE SEPSIS TECHNIQUE: Frontal portable view of the chest COMPARISON: Chest x-ray performed on 06/26/2018 FINDING S: Lines and tubes: None. Cardiomediastinal: The car diomediastinal silhouette is unchanged. Lungs and pleura: There is a faint airspace opacity within the right lung base that may represent pn eumonia. No pleural effusion. No pneumothorax. Musculoskele diana: No significant skeletal abnormality. IMPRESSION: Possible right basilar pneumonia. Recommend follow-up imaging to ensure complete resolution. at 7564 Reported and signed by: Tay Kaiser M.D. CC: Paul Castillo MD Technologist: Coy Zamorano Trnscrd Date/Time/By: 10/15/2018 ( 9095) : By: [email or web address] PAGE 1 Signed Report FAX: Paul Santiago MD [phone] [place]: DON St: REG Name: CÉSAR ANGEL [facility] : 1970 Age/S: 48/F [address] Unit #: [id number] Loc: [place] [address] Phys: Thea Remy B[employer] H[employer] OPERATOR Acct: [id number] Dis Date: Status: REG ER PHONE #: [phone] Exam Date: 10/15/2018 1226 FAX #: [phone] Reason: CODE SEPSIS EXAMS: CPT CODE: [id number] XR CHEST 1 V 84063 <Continued> Orig Print D/T: S: 10/15/2018 (6689) PAGE 2 Signed Report BASIC METABOLIC [id number] 12:22:00* Test Item Value Reference Range Comments SODIUM (test code=NA) 140 mmol/L 137-145 POTASSIUM (test code=K) 3.9 mmol/L 3.4-5.0 CHLORIDE (test code=CL) 104 mmol/L 98-107 CARBON DIOXIDE (test code=CO2) 28 mmol/L 22-30 GLUCOSE (test code=GLU) 99 mg/dL 74-106 BLOOD UREA NITROGEN (test code=BUN) 9 mg/dL 7-17 GLOMERULAR FILTRATION RATE (test code=GFR) 82 >60 The estimated glomerular filtration rate is computed usingpatient race, age (>18), sex, and serum creatinine. If anyof the needed data elements are missing the Laboratory cannot compute an estimation of the glomerular filtration rate. CREATININE (test code=CREAT) 0.8 mg/dL 0.5-1.0 CALCIUM (test code=CA) 9.6 mg/dL 8.4-10.2 LIVER FUNCTION [id number] 12:22:00* Test Item Value Reference Range Comments TOTAL PROTEIN (test code=PROT) 7.7 g/dL 6.3-8.2 ALBUMIN (test code=ALB) 4.3 g/dL 3.5-5.0 BILIRUBIN TOTAL (test code=BILT) 0.5 mg/dL 0.2-1.3 BILIRUBIN CONJUGATED (test code=BILCON) 0 mg/dL 0-0.3 ~~~~~~~~~~~~~~~~~~~~~~~~~~~~~~~~~~~~~~~~~~~~~~~~~~~~~~~~~~~~CONJUGATED BILIRUBIN IS THE REPLACEMENT ASSAY FOR DIRECTBILIRUBIN.~~~~~~~~~~~~~~~~~~~~~~~~~~~~~~~~~~~~~~~~~~~~~~~~~~~~~~~~~~~~ BILIRUBIN UNCONJUGATED (test code=BILUNC) 0 mg/dL 0-1.1 SGOT/AST (test code=AST) 21 U/L 15-46 SGPT/ALT (test code=ALT) 21 U/L 13-69 ALKALINE PHOSPHATASE (test code=ALKP) 99 U/L 38-126 UA RFLX MICR CULT IF [id number] 12:16:00* Test Item Value Reference Range Comments UA COLOR (test code=COLU) Yellow Yellow UA APPEARANCE (test code=APPU) Cloudy Clear UA GLUCOSE DIPSTICK (test code=DGLUU) Negative Negative UA BILIRUBIN DIPSTICK (test code=BILU) Negative Negative UA KETONE DIPSTICK (test code=KETU) Trace mg/dL Negative UA SPECIFIC GRAVITY (test code=SGU) 1.021 <1.030 UA BLOOD DIPSTICK (test code=YUMI) Negative Negative UA PH DIPSTICK (test code=RIANNA) 7.0 5.0-8.0 UA PROTEIN DIPSTICK (test code=PROU) 30 (1+) mg/dL Negative UA UROBILINOGEN DIPSTICK (test code=URO) 2.0 mg/dL Negative UA NITRITE DIPSTICK (test code=ANITHA) Negative Negative UA LEUKOCYTE ESTERASE DIPSTICK (test code=LEUU) TRACE Negative UA WBC (test code=WBCUR) 6-10 /HPF <4-5 <10 WBC/HPF=PYURIA ABSENT URINE CULTURE NOT INDICATED UA RBC (test code=RBCU) 4-5 /HPF <4-5 UA BACTERIA (test code=BACU) Rare /HPF None-Rare UA SQUAMOUS CELLS (test code=SQU) >25 (MANY) /HPF 0-5 (RARE) UA MUCUS (test code=MUCU) 2+ /LPF <Rare less than 18 yrs old, neutropenic, or urological surgery? NOPrimary Indication f or Culture: OtherOther Indication: ED PATIENTCBC W/AUTO [id number] 12:06:00 * Test Item Value Reference Range Comments WHITE BLOOD CELL (test code=WBC) 6.8 x10 3/uL 5.0-12.0 RED BLOOD CELL (test code=RBC) 5.13 x10 6/uL 4.20-5.40 HEMOGLOBIN (test code=HGB) 14.0 g/dL 12.0-16.0 HEMATOCRIT (test code=HCT) 43.0 % 36.0-46.0 MEAN CELL VOLUME (test code=MCV) 84 fL 81-99 MEAN CELL HGB (test code=MCH) 27.3 pg 27-31 MEAN CELL HGB CONCENTRATION (test code=MCHC) 32.6 g/dL 33-37 RED CELL DISTRIBUTION WIDTH (test code=RDW) 14.3 % 11.5-15.5 PLATELET COUNT (test code=PLT) 238 x10 3/uL 130-400 MEAN PLATELET VOLUME (test code=MPV) 9.8 fL 9.4-16.4 NEUTROPHIL % (test code=NT%) 66.5 % 43-65 IMMATURE GRANULOCYTE % (test code=IG%) 0.7 % 0.0-2.0 LYMPHOCYTE % (test code=LY%) 24.0 % 20.5-45.5 MONOCYTE % (test code=MO%) 5.6 % 5.5-11.7 EOSINOPHIL % (test code=EO%) 2.9 % 0.9-2.9 BASOPHIL % (test code=BA%) 0.3 % 0.2-1.0 NUCLEATED RBC % (test code=NRBC%) 0.0 % 0-1.0 NEUTROPHIL # (test code=NT#) 4.54 x10 3/uL 2.2-4.8 IMMATURE GRANULOCYTE # (test code=IG#) 0.05 x10 3/uL 0-0.03 LYMPHOCYTE # (test code=LY#) 1.64 x10 3/uL 1.3-2.9 MONOCYTE # (test code=MO#) 0.38 x10 3/uL 0.3-0.8 EOSINOPHIL # (test code=EO#) 0.20 x10 3/uL 0.0-0.2 BASOPHIL # (test code=BA#) 0.02 x10 3/uL 0.0-0.1 CT, [id number] 11:05:00FINAL REPORT EXAM: CT Abdomen and Pelvis WITH contrast 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 HEPATOBILIARY: No focal hepatic lesions. No biliary ductal dilation. GALLBLADDER: Surgically absent. SPLEEN: Splenomegaly measuring 14 cm. PANCREAS: No focal masses or ductal dilatation. ADRENALS: No adrenal nodules KIDN EYS/URETERS: Kidneys enhance symmetrically. No hydronephrosis. Hypodense lesion in the right renal superior pole measures 2.2 x 2 cm. No other renal lesions vi sualized. No stones. GI TRACT: No abnormal distention, wall thickening, or evid ence of bowel obstruction. Appendix is normal. PELVIC ORGANS/BLADDER: Unre markable. LYMPH NODES: No lymphadenopathy. VESSELS: Unremarkable. PERITONEUM / R ETROPERITONEUM: No free air or fluid. BONES: Mild T12 vertebral body anterior we dging. Otherwise, unremarkable. SOFT TISSUES: Small fat-containing periumbilica l hernia. IMPRESSION: 1.No evidence of metastatic disease in the abd omen/pelvis.2.No acute inflammatory process in the abdomen/pelvis.3.Small right pleural effusion.4.Hypodense right renal superior pole lesion with internal dens ity of greater than simple fluid, could represent a complex hemorrhagic/proteina ceous cyst. Recommend renal ultrasound for further evaluation. Signed: Jeremy Fuller Verified Date/Time: 09/28/2018 11:05:53 Reading Location: [facility] Room [address] [place] [address] , [id number] 10:46:00Reason for Exam:->C7A.090 FINAL REPORT EXAM: Thyroid UltrasoundINDICATION: C 7A.090 COMPARISON: None TECHNIQUE: Transverse and sagittal images were obtained of the thyroid gland. FINDINGS: Thyroid gland:Size: Right lobe: 4.6 x 2.5 x 2.9 cm, Normal in sizeLeft lobe: 5.1 x 1.7 x 2 cm, Normal in size Isthmus: 0.5 cm, Normal in sizeAppearance: Heterogeneous echotexture without increased vascula rityMasses/Nodules: Right lobe: 3.9 x 2.1 x 2.2 cm solid (2 pts) nodule in the i nterpolar region with smooth margin (0 pts), yzblp-dgha-szeq (0 pts), isoechoic (1 pt), and no calcifications (0 pts). TR3c (>2.5 cm), Mildly Suspicious: FNA. Left lobe: 2.1 x 1.2 x 1.6 cm almost completely solid (2 pts) nodule in the superior pole with smooth margin (0 pts), dyhft-vevh-wnib (0 pts), hypoechoic (2 pts), and no calcifications (0 pts). TR4c (>1.5 cm), Moderately Suspicious: FNA. Parathyroid:No focal parathyroid masses. IMPRESSION: Right and left thyroid nodules, both meet the criteria for fine-needle aspiration. TI-RADS Lexicon:TR1, Benign: No FNATR2, Not Suspicious: No FNA.TR3a (<1.5 cm): No follow-up.TR3b (1.5-2.5 cm), Mildly Suspicious: Follow at 1, 3, 5 years.TR3c (> 2.5 cm), Mildly Suspicious: FNA.TR4a (<1.0 cm): No follow-up.TR4b (1.0-1.5 cm), Moderately Suspicious: Follow at 1, 2, 3, 5 years.TR4c (>1.5 cm), Moderately Suspicious: FNA.TR5a (<0.5 cm): No follow-up.TR5b (0.5-1.0 cm), Highly Suspicious: Follow at 1, 2, 3, 4, 5 years.TR5c (>1.0 cm), Highly Suspicious: FNA.*Rebiopsy if new suspicious features *No recommendation at this time for significant interval growth. Nodule Characteristics:*Benign features: cystic, hyperechoic, comet-tail artifact, complete halo*Minor suspicious features: solid, hypoechoic, other calcifications*Major suspicious features: microcalcifications, marked hypoechoic (less than strap muscle), suspicious lymph nodes, taller than wide, lobulated or ill-defined margins. Literature:ACR Thyroid Imaging, Reporting and Data System (TI-RADS): White Paper of the ACR TI- RADS Committee. J Am Juan Diego Radiol 2017. Signed: Jeremy Fuller MDReport Verified Date/Time: 09/28/2018 10:46:57 Reading Location: [facility] Reading Room [address] [place] [address] UE [id number] 12:11:00Surgical Pathology Report Case: [id number] Authorizing Provider: Ulices De Leon MD Collected: 07/27/2018 1605 Ordering Location: [facility] Received: 07/28/2018 0815 PERIOPERATIVE SERVICES Pathologist: Katia Covarrubias MD Specimens: A) - Lymph Node, station 9 R lymph node- right lung B) - Lymph Node, station 7 pocket- right lung C) - Lymph Node, station 4R and station 2R- right lung D) - Lymph Node, station 11R- right lung E) - Lymph Node, station 12R - right lung F) - Lymph Node, station 11R #2 - right lung G) - Lymph Node, station 12 R #2 H) - Lymph Node, station 11R #3- right lung I) - Lymph Node, station 11R #4- right lung J) - Lung, Right Middle Lobe, right middle lobectomy for frozen - check margins A. LYMPH NODE, STATION 9R, EXCISION: - ONE BENIGN LYMPH NODE (0/1)B. LYMPH NODE, STATION 7 PACKET, EXCISION: - THREE BENIGN LYMPH NODES (0/3)C. LYMPH NODE, STATION 2R AND 4R, EXCISION: - SCANT LYMPHOID TISSUE, NEGATIVE FOR MALIGNANCY - NO LYMPH NODE IDENTIFIEDD. LYMPH NODE, STATION 11R, EXCISION: - ALVEOLATED LUNG TISSUE, NEGATIVE FOR MALIGNANCY - NO LYMPH NODE IDENTIFIEDE. LYMPH NODE, STATION 12R, EXCISION: - ONE BENIGN LYMPH NODE (0/1)F. LYMPH NODE, STATION 11R#2, EXCISION: - THREE BENIGN LYMPH NODES (0/3)G. LYMPH NODE, STATION 12R#2, EXCISION: - ONE BENIGN LYMPH NODE (0/1)H. LYMPH NODE, STATION 11R#3, EXCISION: - ONE BENIGN LYMPH NODE (0/1)I. LYMPH NODE, STATION 11R#4, EXCISION: - METASTATIC NEUROENDOCRINE CARCINOMA INVOLVING ONE LYMPH NODE (1/1)J. LUNG, RIGHT MIDDLE LOBE, LOBECTOMY: - NEUROENDOCRINE CARCINOMA, LOW GRADE, SPINDLE CELL TYPE (G1) - TUMOR MEASURES 2.5 CM IN GREATEST DIMENSION - NO VISCERAL PLEURAL INVASION IS IDENTIFIED - LYMPHOVASCULAR INVASION IS PRESENT - MITOTIC RATE: 1 PER 2 MM2 - NO NECROSIS IS SEEN - KI-67 PROLIFERATIVE INDEX: ~1% - SURGICAL RESECTION MARGINS, NEGATIVE FOR MALIGNANCY - UNINVOLVED ADJACENT LUNG PARENCHYMA WITH INCIDENTAL MENINGOTHELIAL NODULES - METASTATIC NEUROENDOCRINE CARCINOMA INVOLVING ONE OF THREE LYMPH NODES (1/3) - EXTRANODAL EXTENSION IS PRESENT - PATHOLOGIC STAGING: [id number] (AJCC 8th ed) Signing Pathologist Direct Phone Line: [phone] signed by Katia Covarrubias MD on 08/09/2018 at 12:11 PMA, D, F. Immunostain for synaptophysin is negative. J. Im munostain for synaptophysin is positive, supporting the above diagnosis.LUNG (L espinoza - All Specimens)SPECIMEN Procedure: Lobectomy Specimen Laterality: Right TUMOR Tumor Site: Middle lobe Histologic Type: Typical carcin oid tumor Histologic Grade: G1: Well differentiated Spread Through Air Spaces (TRACY): Not identified : Tumor Size: Greatest dimension in C entimeters (cm): 2.5 Centimeters (cm) Additional Dimension in Centimeters (c m): 1.5 Centimeters (cm) Additional Dimension in Centimeters (cm): 1 C entimeters (cm) Tumor Focality: Single tumor Tumor Extent: Visceral Pl eura Invasion: Not identified Direct Invasion of Adjacent Structures: N o adjacent structures present Accessory Findings: Treatment Effect: No known presurgical therapy Lymphovascular Invasion: Present : Lymp hatic MARGINS Margins: All margins are uninvolved by carcinoma Margins Exa mined: Bronchial Margins Examined: Vascular Margins Examined: Par enchymal Distance of Invasive Carcinoma from Closest Margin in Centimeters (c m): 2 Centimeters (cm) Closest Margin: Bronchial LYMPH NODES Number of Lymph Nodes Involved: 2 Harish Stations Involved: 10R: Hilar Harish S tations Involved: 11R: Interlobar Extranodal Extension: Present Number o f Lymph Nodes Examined: 14 Harish Stations Examined: 2R: Upper paratrach eal Harish Stations Examined: 4R: Lower paratracheal Harish Stations Exam ined: 9R: Pulmonary ligament Harish Stations Examined: 11R: Interlobar Harish Stations Examined: 12R: Lobar Harish Stations Examined: 7: Subca rinal PATHOLOGIC STAGE CLASSIFICATION (pTNM, AJCC 8th Edition) TNM Descriptors: Not applicable Primary Tumor (pT): pT1c Regional Lymph Nodes (pN): pN1 [id number] lobe nodule J. Right middle lobectomyThe s pecimen is received in eight parts labeled with the patient's information and co rresponds to the requisition slip with the same information.Part A. Received in formalin labeled "lymph node, station 9R" consists of a 0.4 x 0.3 x 0.3 cm, red, irregular piece of soft tissue, which is submitted entirely in a single cassett e, A1.Part B. Received in formalin labeled "lymph node, ST7" are multiple howard-pi nk, pigmented, irregular portions of soft tissue measuring 2.5 x 1.5 x 0.7 cm in aggregate. One possible lymph node measuring 0.7 cm in greatest dimension is id entified. The lymph node is submitted entirely in cassette B1, and the remaining tissue is submitted entirely in cassettes B2 and B3.Part C. Received in formalin labeled "lymph node, ST4R/2R" is a 0.9 x 0.8 x 0.6 cm, howard-pink, fatty, irregu lar soft tissue with focal areas of pigmentation. No lymph nodes are grossly sharyn ntified. The specimen is submitted entirely is a single cassette, C1.Part D. Rec eived in formalin labeled "lymph node, 11R" is a 0.7 x 0.3 x 0.3 cm, dark-brown, irregular piece of soft tissue, which is submitted entirely in a filtration bag in cassette D1.Part E. Received in formalin labeled "lymph node, ST12R" consists of a 0.6 x 0.3 x 0.3 cm, howard-pink, pigmented, irregular piece of soft tissue, which is submitted entirely in a filtration bag in a single cassette, E1.Part F. Received in formalin labeled "lymph node, ST11R" consists of a 1.3 x 0.6 x 0.4 cm, howard-pink, pigmented, irregular piece of soft tissue. Three possible lymph no mary ranging between 0.2 to 0.5 cm are identified. The specimen is submitted enti rely in a single cassette, F1.Part G. Received in formalin labeled "lymph node, ST12R #2" consists of a 0.6 x 0.3 x 0.3 cm, pigmented, irregular piece of soft t issue, which is submitted entirely in a single cassette, G1, in a filtration bag .Part H. Received in formalin labeled "lymph node, ST11R #3" consists of a 1.1 x 0.7 x 0.4 cm, howard-pink, pigmented, irregular piece of soft tissue containing one possible lymph node measuring 0.7 cm in greatest dimension. The specimen is weinstein bmitted entirely in a single cassette, H1.Part I. Received in formalin labeled " lymph node, ST11R #4" consists of a 0.6 x 0.4 x 0.3 cm, howard-pink, pigmented, irr egular piece of soft tissue containing one possible lymph node measuring 0.5 cm in greatest dimension. The specimen is submitted entirely in a single cassette, I1. MA/ewPart J. Received fresh labeled "right middle lobectomy" is a 10.5 x 5.5 x 3 cm middle lobe of the right lung with a 2 cm stapled vascular margin. There is a 6.5 cm stapled parenchymal margin. A 2.5 X 1.5 X 1 cm well-circumscribed w segundo nodule is identified in the lung parenchyma. The cut surface of the nodule is homogeneously white and firm. It abuts the pleura, located 2.5 cm from the cl osest parenchymal margin and 2 cm from the closest bronchovascular margin. The r emaining lung parenchyma is unremarkable.Ink code: Pleural surface adjacent to t he mass redSection code:J1 and J2: frozen remnant of the bronchial margin J3: va scular marginJ4-J5: parenchymal margin in its entirety, en faceJ6-J9: tumor in i ts entirety J10-J12: cash applications representative sections of unremarkable lung parenchymaYY/e wJ1FS, J2FS, RIGHT MIDDLE LOBECTOMY: - BRONCHIAL MARGINS ARE NEGATIVE FOR RODNEY COLIN The results are reported by Dr. Griffiths to Dr. De Leon on July 27, 2018Perf ormed.The interpretation of this case included the use of immunohistochemistry o r special stains. Immunohistochemistry technical testing was performed at [facility] Pathology Laboratory where it was developed and its performance characteristics were determined. It has not been cleared or approved by the U.S. Food and Drug Administration. The FDA has determined that such nancy clay or approval is not necessary. The test is used for clinical purposes. It s hould not be regarded as investigational or for research. This laboratory is cer tified under the Clinical Laboratory Improvement Amendments of 1988 (CLIA-88) as qualified to perform high complexity clinical laboratory testing.RAD, CHEST, 1 VIEW, NON [id number] 08:23:00Reason for exam:->ptxIs the patient ?-> NoShould this be performed at the bedside?->YesFINAL REPORT RAD, CHEST, 1 VIEW, NON DEPT INDICATION: ptx COMPARISON: 07/29/2018 FINDINGS: Portable frontal view of the chest. IMPRESSION: Support Lines: IJ catheter is unchanged projecting over the SVC. Lungs and pleura: Minimal bibasilar atelectasis. Superimposed infection may be excluded clinically. No pneumothorax.Heart and mediastinum: Stable contours. Additional findings: None. Signed: Vanesa Villela MDReport Verified Date/Time: 07/30/2018 08:23:47 Reading Location: [facility] C013V Neuro Reading Room C METABOLIC PANEL 2018-07-30 05:37:00* Test Item Value Reference Range Comments SODIUM (BEAKER) (test fsiy=407) 138 meq/L 136-145 POTASSIUM (BEAKER) (test smdo=521) 3.7 meq/L 3.5-5.1 CHLORIDE (BEAKER) (test gwcv=652) 105 meq/L 98-107 CO2 (BEAKER) (test ovwz=944) 28 meq/L 22-29 BLOOD UREA NITROGEN (BEAKER) (test ybny=652) 9 mg/dL 7-21 CREATININE (BEAKER) (test shbn=041) 0.71 mg/dL 0.57-1.25 GLUCOSE RANDOM (BEAKER) (test toxf=627) 135 mg/dL 70-105 CALCIUM (BEAKER) (test teyh=867) 8.7 mg/dL 8.4-10.2 EGFR (BEAKER) (test rwrk=2439) mL/min/1.73 sq m INSUFFICIENT CLINICAL DATA TO CALCULATE ESTIMATED GFR. [id number] 05:36:00* Test Item Value Reference Range Comments MAGNESIUM (BEAKER) (test mupw=828) 2.0 mg/dL 1.6-2.6 CBC W/PLT COUNT & AUTO [id number] 04:15:00* Test Item Value Reference Range Comments WHITE BLOOD CELL COUNT (BEAKER) (test hlko=917) 6.7 K/ L 3.5-10.5 RED BLOOD CELL COUNT (BEAKER) (test hpjl=405) 4.03 M/ L 3.93-5.22 HEMOGLOBIN (BEAKER) (test mftg=882) 11.4 GM/DL 11.2-15.7 HEMATOCRIT (BEAKER) (test ydsg=058) 36.7 % 34.1-44.9 MEAN CORPUSCULAR VOLUME (BEAKER) (test ycpo=822) 91.1 fL 79.4-94.8 MEAN CORPUSCULAR HEMOGLOBIN (BEAKER) (test kwsp=124) 28.3 pg 25.6-32.2 MEAN CORPUSCULAR HEMOGLOBIN CONC (BEAKER) (test losw=645) 31.1 GM/DL 32.2-35.5 RED CELL DISTRIBUTION WIDTH (BEAKER) (test hvrm=026) 14.6 % 11.7-14.4 PLATELET COUNT (BEAKER) (test jqll=586) 161 K/CU MM 150-450 MEAN PLATELET VOLUME (BEAKER) (test xwyz=518) 9.5 fL 9.4-12.3 NUCLEATED RED BLOOD CELLS (BEAKER) (test spwl=072) 0 /100 WBC 0-0 NEUTROPHILS RELATIVE PERCENT (BEAKER) (test ploc=544) 71 % LYMPHOCYTES RELATIVE PERCENT (BEAKER) (test llqy=844) 20 % MONOCYTES RELATIVE PERCENT (BEAKER) (test hits=897) 6 % EOSINOPHILS RELATIVE PERCENT (BEAKER) (test yixh=282) 2 % BASOPHILS RELATIVE PERCENT (BEAKER) (test jkvt=428) 0 % NEUTROPHILS ABSOLUTE COUNT (BEAKER) (test zall=763) 4.74 K/ L 1.56-6.13 LYMPHOCYTES ABSOLUTE COUNT (BEAKER) (test nwor=996) 1.36 K/ L 1.18-3.74 MONOCYTES ABSOLUTE COUNT (BEAKER) (test myfl=518) 0.42 K/ L 0.24-0.36 EOSINOPHILS ABSOLUTE COUNT (BEAKER) (test yvex=502) 0.15 K/ L 0.04-0.36 BASOPHILS ABSOLUTE COUNT (BEAKER) (test reqs=234) 0.00 K/ L 0.01-0.08 IMMATURE GRANULOCYTES-RELATIVE PERCENT (BEAKER) (test rbag=0890) 0 % 0-1 RAD, CHEST, 1 VIEW, NON [id number] 07:41:00Reason for exam:->ptxIs the patient ?->NoShould this be performed at the bedside?->YesFINAL REPORT Portable chest. CLINICAL HISTORY: ptx. COMPARISON STUDY: July 28, 2018. FINDINGS: The cardiac silhouette is enlarged. The pulmonary parenchyma demonstrates increased interstitial markings with some atelectatic changes, slightly more pronounced on previous in the right lung base. The support lines and tubes are unchanged. No pneumothorax is seen. Degenerative ch anges are noted. IMPRESSION: Slight worsening of opacity in the right lung base. In the right clinical setting, a superimposed infection would be difficult to e xclude. Clinical correlation and short term imaging follow-up could be made to e xclude other etiologies. Signed: Clark Castillo MDReport Verified Date/Time: 07/29/2018 07:41:06 Reading Location: [facility] Radiology Reading Room C METABOLIC [id number] 05:15:00* Test Item Value Reference Range Comments SODIUM (BEAKER) (test bncj=252) 140 meq/L 136-145 POTASSIUM (BEAKER) (test eydu=472) 4.0 meq/L 3.5-5.1 CHLORIDE (BEAKER) (test zlub=535) 107 meq/L 98-107 CO2 (BEAKER) (test drol=579) 26 meq/L 22-29 BLOOD UREA NITROGEN (BEAKER) (test cdie=609) 9 mg/dL 7-21 CREATININE (BEAKER) (test slgu=018) 0.76 mg/dL 0.57-1.25 GLUCOSE RANDOM (BEAKER) (test komo=289) 102 mg/dL 70-105 CALCIUM (BEAKER) (test pljz=115) 8.9 mg/dL 8.4-10.2 EGFR (BEAKER) (test queu=5602) mL/min/1.73 sq m INSUFFICIENT CLINICAL DATA TO CALCULATE ESTIMATED GFR. [id number] 05:10:00* Test Item Value Reference Range Comments MAGNESIUM (BEAKER) (test dccw=405) 1.9 mg/dL 1.6-2.6 CBC W/PLT COUNT & AUTO [id number] 04:34:00* Test Item Value Reference Range Comments WHITE BLOOD CELL COUNT (BEAKER) (test bdbz=685) 8.3 K/ L 3.5-10.5 RED BLOOD CELL COUNT (BEAKER) (test cvag=468) 4.25 M/ L 3.93-5.22 HEMOGLOBIN (BEAKER) (test czlc=327) 11.9 GM/DL 11.2-15.7 HEMATOCRIT (BEAKER) (test cjfs=767) 38.9 % 34.1-44.9 MEAN CORPUSCULAR VOLUME (BEAKER) (test xddr=083) 91.5 fL 79.4-94.8 MEAN CORPUSCULAR HEMOGLOBIN (BEAKER) (test llbg=445) 28.0 pg 25.6-32.2 MEAN CORPUSCULAR HEMOGLOBIN CONC (BEAKER) (test rgcd=232) 30.6 GM/DL 32.2-35.5 RED CELL DISTRIBUTION WIDTH (BEAKER) (test ibdj=073) 14.8 % 11.7-14.4 PLATELET COUNT (BEAKER) (test zyla=936) 152 K/CU MM 150-450 MEAN PLATELET VOLUME (BEAKER) (test hmxh=955) 10.1 fL 9.4-12.3 NUCLEATED RED BLOOD CELLS (BEAKER) (test ogde=162) 0 /100 WBC 0-0 NEUTROPHILS RELATIVE PERCENT (BEAKER) (test htfo=110) 79 % LYMPHOCYTES RELATIVE PERCENT (BEAKER) (test gmzn=007) 14 % MONOCYTES RELATIVE PERCENT (BEAKER) (test cddc=649) 6 % EOSINOPHILS RELATIVE PERCENT (BEAKER) (test xsax=291) 0 % BASOPHILS RELATIVE PERCENT (BEAKER) (test xmzk=215) 0 % NEUTROPHILS ABSOLUTE COUNT (BEAKER) (test ojxg=312) 6.56 K/ L 1.56-6.13 LYMPHOCYTES ABSOLUTE COUNT (BEAKER) (test lbbx=695) 1.20 K/ L 1.18-3.74 MONOCYTES ABSOLUTE COUNT (BEAKER) (test kqdn=294) 0.50 K/ L 0.24-0.36 EOSINOPHILS ABSOLUTE COUNT (BEAKER) (test pwpf=481) 0.03 K/ L 0.04-0.36 BASOPHILS ABSOLUTE COUNT (BEAKER) (test phzo=060) 0.01 K/ L 0.01-0.08 IMMATURE GRANULOCYTES-RELATIVE PERCENT (BEAKER) (test xool=4568) 0 % 0-1 RAD, CHEST, 1 VIEW, NON [id number] 15:25:00Reason for exam:->CT removalShould this be performed at the bedside?->YesFINAL REPORT Chest one view. Clinical history: CT removal Comparison: 07/28/2018 Discussion: A frontal chest is provided. Cardiomediastinal contours are unchanged. Right chest tube has been removed. Right IJ line is in stable position. There is no pneumothorax. Low lung volume with mild bibasilar atelectasis. Mild interstitial prominence. No significant effusion. Signed: Sergei Barbour Verified Date/Time: 07/28/2018 15:25:08 Reading Location: [address] Consult Reading Room , CHEST, 1 VIEW, NON [id number] 10:55:00Reason for exam:->CT to water sealShould this be performed at the bedside?->YesFINAL REPORT Chest one view. Clinical history: CT to water seal Comparison: 07/28/2018 Discussion: A frontal chest is provided. Cardiomediastinal contours are unchanged. Lines and tubes are in stable position. No pneumothorax. Mild right basilar atelectasis. Mild interstitial edema is unchang ed. No large effusion. Signed: Sergei Barbour MDReport Verified Date/Time: 07/28/2018 10:55:22 Reading Location: [facility] Radiology Reading Room [facility] signed by: SERGEI BARBOUR M.D. on 07/28/2018 10:55 AM RAD, CHEST, 1 VIEW, NON [id number] 08:25:00Reason for exam:->ptxIs the patient ?->NoShould this be performed at the bedside?->YesFINAL REPORT TECHNIQUE: Frontal chest radiograph dated 07/28/2018. CLINICAL HISTORY: PTX COMPARISON STUDY: Chest radiograph dated 07/27/2018 IMPRESSION:Right-sided chest tube and right-sided vascular line are unchanged. Mildly prominent interstitial lung markings are suggestive of interstitial edema. No focal consolidation. No pleural effusion or pneumothorax. Cardiomediastinal silhouette is stable in size. No fracture. Signed: Jane Enriquez MDReport Verified Date/Time: 07/28/2018 08:25:42 Reading Location: [facility] Radiology Reading Room C METABOLIC [id number] 05:08:00* Test Item Value Reference Range Comments SODIUM (BEAKER) (test kyyf=772) 139 meq/L 136-145 POTASSIUM (BEAKER) (test fmud=866) 4.4 meq/L 3.5-5.1 CHLORIDE (BEAKER) (test xvtv=737) 109 meq/L 98-107 CO2 (BEAKER) (test gvdh=875) 23 meq/L 22-29 BLOOD UREA NITROGEN (BEAKER) (test hwzc=214) 9 mg/dL 7-21 CREATININE (BEAKER) (test hmon=966) 0.75 mg/dL 0.57-1.25 GLUCOSE RANDOM (BEAKER) (test bebv=972) 137 mg/dL 70-105 CALCIUM (BEAKER) (test qnqu=268) 9.1 mg/dL 8.4-10.2 EGFR (BEAKER) (test jstj=8466) mL/min/1.73 sq m INSUFFICIENT CLINICAL DATA TO CALCULATE ESTIMATED GFR. [id number] 04:55:00* Test Item Value Reference Range Comments MAGNESIUM (BEAKER) (test deba=176) 2.1 mg/dL 1.6-2.6 CBC W/PLT COUNT & AUTO [id number] 04:30:00* Test Item Value Reference Range Comments WHITE BLOOD CELL COUNT (BEAKER) (test kmuv=893) 12.4 K/ L 3.5-10.5 RED BLOOD CELL COUNT (BEAKER) (test ypxl=577) 4.74 M/ L 3.93-5.22 HEMOGLOBIN (BEAKER) (test axkz=614) 13.4 GM/DL 11.2-15.7 HEMATOCRIT (BEAKER) (test wrqb=922) 43.0 % 34.1-44.9 MEAN CORPUSCULAR VOLUME (BEAKER) (test assf=767) 90.7 fL 79.4-94.8 MEAN CORPUSCULAR HEMOGLOBIN (BEAKER) (test mxsd=176) 28.3 pg 25.6-32.2 MEAN CORPUSCULAR HEMOGLOBIN CONC (BEAKER) (test adkf=132) 31.2 GM/DL 32.2-35.5 RED CELL DISTRIBUTION WIDTH (BEAKER) (test gibz=499) 14.6 % 11.7-14.4 PLATELET COUNT (BEAKER) (test nxku=049) 189 K/CU MM 150-450 MEAN PLATELET VOLUME (BEAKER) (test ixlj=293) 9.6 fL 9.4-12.3 NUCLEATED RED BLOOD CELLS (BEAKER) (test jnxk=205) 0 /100 WBC 0-0 NEUTROPHILS RELATIVE PERCENT (BEAKER) (test hugz=177) 93 % LYMPHOCYTES RELATIVE PERCENT (BEAKER) (test jmjk=085) 4 % MONOCYTES RELATIVE PERCENT (BEAKER) (test hsbs=075) 3 % EOSINOPHILS RELATIVE PERCENT (BEAKER) (test kwfn=622) 0 % BASOPHILS RELATIVE PERCENT (BEAKER) (test jnmt=704) 0 % NEUTROPHILS ABSOLUTE COUNT (BEAKER) (test llgr=110) 11.46 K/ L 1.56-6.13 LYMPHOCYTES ABSOLUTE COUNT (BEAKER) (test lrvg=000) 0.49 K/ L 1.18-3.74 MONOCYTES ABSOLUTE COUNT (BEAKER) (test dblv=073) 0.36 K/ L 0.24-0.36 EOSINOPHILS ABSOLUTE COUNT (BEAKER) (test vgls=461) 0.00 K/ L 0.04-0.36 BASOPHILS ABSOLUTE COUNT (BEAKER) (test dqjg=172) 0.01 K/ L 0.01-0.08 IMMATURE GRANULOCYTES-RELATIVE PERCENT (BEAKER) (test gdlx=3689) 0 % 0-1 RAD, CHEST, 1 VIEW, NON [id number] 21:54:00Reason for exam:->ptxIs the patient ?->NoShould this be performed at the bedside?->YesFINAL REPORT History: Pneumothorax. FINDINGS: Compared with July 04, 2018, a right chest tube and right internal jugular central venous catheter have been placed and appear in expected positions. Lung volumes are decreased. No pneumothorax is identified. The heart and mediastinum are stable. As before, the heart is moderately enlarged. Focal opacity is present in the lung bases, likely atelectasis. Bones are unremarkable. IMPRESSION: 1. Tubes and lines in expected positions. No pneumothorax is identified. 2. Low lung volumes and increased opacity in the lung bases, likely atelectasis. Signed: Kevin Beltre Verified Date/Time: 07/27/2018 21:54:58 Reading Location: [facility] Imaging Reading Room - [place] [address] /[id number] 21:21:00* Test Item Value Reference Range Comments PROTIME (BEAKER) (test rmov=178) 12.7 seconds 11.7-14.7 INR (BEAKER) (test akhq=416) 0.9 <=5.9 PARTIAL THROMBOPLASTIN TIME (BEAKER) (test wnje=186) 24.1 seconds 22.5-36.0 RECOMMENDED COUMADIN/WARFARIN INR THERAPY RANGESSTANDARD DOSE: 2.0 - 3.0 Inclu mary: PROPHYLAXIS for venous thrombosis, systemic embolization; TREATMENT for uvaldo ous thrombosis and/or pulmonary embolus.HIGH RISK: Target INR is 2.5-3.5 for pat ients with mechanical heart valves.[id number] 21:19:00* Test Item Value Reference Range Comments PHOSPHORUS (BEAKER) (test omzg=414) 4.4 mg/dL 2.3-4.7 [id number] 21:19:00* Test Item Value Reference Range Comments MAGNESIUM (BEAKER) (test aofs=809) 2.1 mg/dL 1.6-2.6 BASIC METABOLIC [id number] 21:19:00* Test Item Value Reference Range Comments SODIUM (BEAKER) (test unoe=180) 138 meq/L 136-145 POTASSIUM (BEAKER) (test ddkl=785) 4.3 meq/L 3.5-5.1 CHLORIDE (BEAKER) (test qndx=395) 106 meq/L 98-107 CO2 (BEAKER) (test oqne=181) 24 meq/L 22-29 BLOOD UREA NITROGEN (BEAKER) (test zdro=931) 12 mg/dL 7-21 CREATININE (BEAKER) (test qkmn=910) 0.89 mg/dL 0.57-1.25 GLUCOSE RANDOM (BEAKER) (test jyxd=017) 152 mg/dL 70-105 CALCIUM (BEAKER) (test krpu=811) 9.1 mg/dL 8.4-10.2 EGFR (BEAKER) (test bnkl=7843) mL/min/1.73 sq m INSUFFICIENT CLINICAL DATA TO CALCULATE ESTIMATED GFR. CBC (HEMOGRAM ONLY)2018-07-27 20:59:00* Test Item Value Reference Range Comments WHITE BLOOD CELL COUNT (BEAKER) (test zquv=568) 15.2 K/ L 3.5-10.5 RED BLOOD CELL COUNT (BEAKER) (test oqdx=678) 5.02 M/ L 3.93-5.22 HEMOGLOBIN (BEAKER) (test iwja=751) 14.3 GM/DL 11.2-15.7 HEMATOCRIT (BEAKER) (test kbap=707) 45.2 % 34.1-44.9 MEAN CORPUSCULAR VOLUME (BEAKER) (test vnuu=799) 90.0 fL 79.4-94.8 MEAN CORPUSCULAR HEMOGLOBIN (BEAKER) (test cnql=256) 28.5 pg 25.6-32.2 MEAN CORPUSCULAR HEMOGLOBIN CONC (BEAKER) (test kami=817) 31.6 GM/DL 32.2-35.5 RED CELL DISTRIBUTION WIDTH (BEAKER) (test ktik=756) 14.7 % 11.7-14.4 PLATELET COUNT (BEAKER) (test mjqq=532) 225 K/CU MM 150-450 MEAN PLATELET VOLUME (BEAKER) (test vtha=621) 9.6 fL 9.4-12.3 NUCLEATED RED BLOOD CELLS (BEAKER) (test bpjq=373) 0 /100 WBC 0-0 CALCIUM, [id number] 20:57:00* Test Item Value Reference Range Comments CALCIUM IONIZED (BEAKER) (test crxc=000) 1.17 mmol/L 1.12-1.27 PH, BLOOD (BEAKER) (test kqcp=9681) 7.23 BLOOD GAS, [id number] 15:55:00* Test Item Value Reference Range Comments PH ARTERIAL (BEAKER) (test ecng=749) 7.37 7.35-7.45 PCO2 ARTERIAL (BEAKER) (test wicx=724) 48 mmHg 35-45 PO2 ARTERIAL (BEAKER) (test fcbs=018) 74 mmHg 80-90 O2 SATURATION ARTERIAL (BEAKER) (test sluj=872) 94.9 % 96.0-97.0 HCO3 ARTERIAL (BEAKER) (test wemo=361) 27 mmol/L 21-29 BASE EXCESS ARTERIAL (BEAKER) (test hljj=200) 1.3 mmol/L -2.0-3.0 PATIENT TEMPERATURE (BEAKER) (test kcwk=6113) 36.4 C FIO2 (BEAKER) (test dyxr=7623) 100.0 % CALCIUM, [id number] 15:55:00* Test Item Value Reference Range Comments CALCIUM IONIZED (BEAKER) (test andp=947) 1.18 mmol/L 1.12-1.27 PH, BLOOD (BEAKER) (test czwi=6058) 7.37 GLUCOSE-STAT [id number] 15:54:00* Test Item Value Reference Range Comments GLUCOSE RANDOM (BEAKER) (test pqml=902) 104 mg/dL 70-110 SODIUM NA-STAT [id number] 15:54:00* Test Item Value Reference Range Comments SODIUM (BEAKER) (test twzj=727) 139 meq/L 135-148 POTASSIUM-STAT [id number] 15:54:00* Test Item Value Reference Range Comments POTASSIUM (BEAKER) (test nztp=108) 4.0 meq/L 3.6-5.5 HGB/HCT (H&H) - STAT [id number] 15:54:00* Test Item Value Reference Range Comments HEMOGLOBIN (BEAKER) (test evbe=560) 14.2 g/dL 12.0-15.0 HEMATOCRIT (BEAKER) (test uxpf=234) 42.0 % 36.0-45.0 COMPREHENSIVE METABOLIC [id number] 10:42:00* Test Item Value Reference Range Comments TOTAL PROTEIN (BEAKER) (test siia=349) 7.0 gm/dL 6.0-8.3 ALBUMIN (BEAKER) (test kaoh=3953) 4.2 g/dL 3.5-5.0 ALKALINE PHOSPHATASE (BEAKER) (test huyk=678) 87 U/L 40-150 BILIRUBIN TOTAL (BEAKER) (test yaor=188) 0.5 mg/dL 0.2-1.2 SODIUM (BEAKER) (test xmqm=917) 141 meq/L 136-145 POTASSIUM (BEAKER) (test nsyq=365) 4.0 meq/L 3.5-5.1 CHLORIDE (BEAKER) (test kvpd=014) 107 meq/L 98-107 CO2 (BEAKER) (test scmh=779) 25 meq/L 22-29 BLOOD UREA NITROGEN (BEAKER) (test rxnk=549) 11 mg/dL 7-21 CREATININE (BEAKER) (test zlmw=491) 0.79 mg/dL 0.57-1.25 GLUCOSE RANDOM (BEAKER) (test vwzo=720) 93 mg/dL 70-105 CALCIUM (BEAKER) (test ixmr=224) 9.9 mg/dL 8.4-10.2 AST (SGOT) (BEAKER) (test wtfo=889) 18 U/L 5-34 ALT (SGPT) (BEAKER) (test piax=919) 25 U/L 6-55 EGFR (BEAKER) (test xaol=3524) mL/min/1.73 sq m INSUFFICIENT CLINICAL DATA TO CALCULATE ESTIMATED GFR. [id number] 10:28:00* Test Item Value Reference Range Comments PARTIAL THROMBOPLASTIN TIME (BEAKER) (test iidg=356) 29.3 seconds 22.5-36.0 PROTHROMBIN TIME/[id number] 10:27:00* Test Item Value Reference Range Comments PROTIME (BEAKER) (test qugk=413) 13.3 seconds 11.7-14.7 INR (BEAKER) (test fige=816) 1.0 <=5.9 RECOMMENDED COUMADIN/WARFARIN INR THERAPY RANGESSTANDARD DOSE: 2.0 - 3.0 Inclu mary: PROPHYLAXIS for venous thrombosis, systemic embolization; TREATMENT for uvaldo ous thrombosis and/or pulmonary embolus.HIGH RISK: Target INR is 2.5-3.5 for pat ients with mechanical heart valves.CBC W/PLT COUNT & AUTO [id number] 10:20:00* Test Item Value Reference Range Comments WHITE BLOOD CELL COUNT (BEAKER) (test gblb=202) 5.1 K/ L 3.5-10.5 RED BLOOD CELL COUNT (BEAKER) (test mflx=532) 4.84 M/ L 3.93-5.22 HEMOGLOBIN (BEAKER) (test bdqw=117) 13.6 GM/DL 11.2-15.7 HEMATOCRIT (BEAKER) (test dhgj=699) 42.4 % 34.1-44.9 MEAN CORPUSCULAR VOLUME (BEAKER) (test mppi=377) 87.6 fL 79.4-94.8 MEAN CORPUSCULAR HEMOGLOBIN (BEAKER) (test uvzi=561) 28.1 pg 25.6-32.2 MEAN CORPUSCULAR HEMOGLOBIN CONC (BEAKER) (test ynos=582) 32.1 GM/DL 32.2-35.5 RED CELL DISTRIBUTION WIDTH (BEAKER) (test mome=417) 14.6 % 11.7-14.4 PLATELET COUNT (BEAKER) (test pkjp=829) 201 K/CU MM 150-450 MEAN PLATELET VOLUME (BEAKER) (test yhax=087) 9.8 fL 9.4-12.3 NUCLEATED RED BLOOD CELLS (BEAKER) (test nmck=539) 0 /100 WBC 0-0 NEUTROPHILS RELATIVE PERCENT (BEAKER) (test zwxb=942) 68 % LYMPHOCYTES RELATIVE PERCENT (BEAKER) (test wzak=856) 25 % MONOCYTES RELATIVE PERCENT (BEAKER) (test kyyq=591) 6 % EOSINOPHILS RELATIVE PERCENT (BEAKER) (test fzjl=130) 2 % BASOPHILS RELATIVE PERCENT (BEAKER) (test rkat=392) 0 % NEUTROPHILS ABSOLUTE COUNT (BEAKER) (test ryvg=875) 3.45 K/ L 1.56-6.13 LYMPHOCYTES ABSOLUTE COUNT (BEAKER) (test fouq=016) 1.26 K/ L 1.18-3.74 MONOCYTES ABSOLUTE COUNT (BEAKER) (test yfiq=643) 0.28 K/ L 0.24-0.36 EOSINOPHILS ABSOLUTE COUNT (BEAKER) (test nobs=616) 0.09 K/ L 0.04-0.36 BASOPHILS ABSOLUTE COUNT (BEAKER) (test zgou=718) 0.01 K/ L 0.01-0.08 IMMATURE GRANULOCYTES-RELATIVE PERCENT (BEAKER) (test rzbh=0404) 0 % 0-1 CT, CHEST WITH IV CONTRAST- PE TEST [id number] 18:03:00Reason for exam:-> CHEST PAINIs the patient ?->NoWhat is the patient's sedation requirement?->No SedationFINAL REPORT CT Chest PE Protocol dated 07/04/2018 Clinical information: Chest pain, acute, PE suspected, high pretest probCHEST PAIN Technique: This exam was performed according [...] region. Trachea and mainstem bronchi are patent. A lobulated mass is seen in the right mid lobe measuring approximately 1.9 x 2.2 cm. The rest of the lungs are clear. No pleural effusion or pleural base mass is seen. Impression: 1. No pulmonary thromboembolism.2. Irregular lobulated mass in the right mid lobe suggestive of bronchogenic carcinoma. Signed: Ilda Peralta MDReport Verified Date/Time: 07/04/2018 18:03:17 Reading Location: [facility] C013Y CT Body Reading Room ALYSIS [id number] 15:23:00* Test Item Value Reference Range Comments RBC UA (BEAKER) (test jdbm=829) 1 /HPF WBC UA (BEAKER) (test neaw=846) 4 /HPF BACTERIA (BEAKER) (test rqss=200) Occasional MUCUS (BEAKER) (test lift=6222) Rare SQUAMOUS EPITHELIAL (BEAKER) (test oxlo=345) 6 /HPF HYALINE CASTS (BEAKER) (test djxf=401) 1 /LPF CRYSTALS, URINE (BEAKER) (test luap=3989) Rare URINALYSIS WITH MICROSCOPIC IF [id number] 14:59:00* Test Item Value Reference Range Comments COLOR (BEAKER) (test nhwu=505) Yellow CLARITY (BEAKER) (test cekd=765) Clear SPECIFIC GRAVITY UA (BEAKER) (test roeg=977) 1.015 1.001-1.035 PH UA (BEAKER) (test qevn=811) 6.5 5.0-8.0 PROTEIN UA (BEAKER) (test czwo=629) Negative Negative GLUCOSE UA (BEAKER) (test gyds=738) Negative Negative KETONES UA (BEAKER) (test bufm=475) Negative Negative BILIRUBIN UA (BEAKER) (test nosa=797) Negative Negative BLOOD UA (BEAKER) (test oblo=208) Negative Negative NITRITE UA (BEAKER) (test kcue=080) Negative Negative LEUKOCYTE ESTERASE UA (BEAKER) (test oiyn=406) Moderate Negative UROBILINOGEN UA (BEAKER) (test lzzb=377) 2.0 mg/dL 0.2-1.0 SOURCE(BEAKER) (test uvkl=7526) SCREEN, [id number] 14:33:00* Test Item Value Reference Range Comments TEST URINE (BEAKER) (test jmke=057) Negative RAD, CHEST, 1 VIEW, NON [id number] 13:11:00Reason for exam:->chest painIs the patient ?->UnknownShould this be performed at the bedside?->YesFINAL REPORT TECHNIQUE: Frontal view of the chest. INDICATION: 48-year-old woman with chest pain. COMPARISON: None. FINDINGS: LINES/TUBES: None. LUNGS: No consolidation or pulmonary edema. 1.5 cm nodular density proj ects over the right mediastinum superior to the right mainstem bronchus. PLEURA: No pneumothorax or significant pleural effusion. HEART AND MEDIASTINUM: The car diac silhouette appears prominent. SOFT TISSUES AND BONES: [place] in the left hu meral head. Soft tissues are unremarkable. IMPRESSION:No acute cardiopulmonary abnormalities. Indeterminate nodular density projecting over the right mediastin um. Chest CT may be obtained for further evaluation. Signed: Danie Landa eport Verified Date/Time: 07/04/2018 13:11:50 Reading Location: [facility] [address] [place] [address] Reading Room Electronically signed by: DANIE LANDA MD on 06/11 01:11 PM B-TYPE NATRIURETIC FACTOR (BNP)2018-07-04 12:07:00* Test Item Value Reference Range Comments B-TYPE NATRIURETIC PEPTIDE (BEAKER) (test bwmp=700) < pg/mL 0-100 COMPREHENSIVE METABOLIC [id number] 12:07:00* Test Item Value Reference Range Comments TOTAL PROTEIN (BEAKER) (test apot=973) 6.9 gm/dL 6.0-8.3 ALBUMIN (BEAKER) (test eusx=9443) 4.1 g/dL 3.5-5.0 ALKALINE PHOSPHATASE (BEAKER) (test dmek=210) 84 U/L 40-150 BILIRUBIN TOTAL (BEAKER) (test ncxn=168) 0.7 mg/dL 0.2-1.2 SODIUM (BEAKER) (test hgui=078) 141 meq/L 136-145 POTASSIUM (BEAKER) (test xagf=100) 4.0 meq/L 3.5-5.1 CHLORIDE (BEAKER) (test xxut=648) 107 meq/L 98-107 CO2 (BEAKER) (test niot=012) 25 meq/L 22-29 BLOOD UREA NITROGEN (BEAKER) (test qviz=878) 10 mg/dL 7-21 CREATININE (BEAKER) (test xzff=124) 0.81 mg/dL 0.57-1.25 GLUCOSE RANDOM (BEAKER) (test pxxr=180) 105 mg/dL 70-105 CALCIUM (BEAKER) (test sgcj=739) 10.0 mg/dL 8.4-10.2 AST (SGOT) (BEAKER) (test mcib=058) 16 U/L 5-34 ALT (SGPT) (BEAKER) (test kkyf=147) 23 U/L 6-55 EGFR (BEAKER) (test hfru=0553) mL/min/1.73 sq m INSUFFICIENT CLINICAL DATA TO CALCULATE ESTIMATED GFR. TROPONIN [id number] 12:01:00* Test Item Value Reference Range Comments TROPONIN I (BEAKER) (test nkjg=786) < ng/mL 0.00-0.03 Troponin I (TnI) levels must be interpreted in the context of the presenting sym ptoms and the clinical findings. Elevated TnI levels indicate myocardial damage, but are not specific for ischemic heart disease. Elevated TnI levels are seen in patients with other cardiac conditions (including myocarditis and congestive h eart failure), and slight TnI elevations occur in patients with other conditions , including sepsis, renal failure, acidosis, acute neurological disease, and per sistent tachyarrhythmia.[id number] 11:55:00* Test Item Value Reference Range Comments MAGNESIUM (BEAKER) (test ujdl=902) 2.2 mg/dL 1.6-2.6 [id number] 11:55:00* Test Item Value Reference Range Comments LIPASE (BEAKER) (test tdpj=612) 11 U/L 8-78 CBC W/PLT COUNT & AUTO [id number] 11:43:00* Test Item Value Reference Range Comments WHITE BLOOD CELL COUNT (BEAKER) (test jlyd=880) 5.9 K/ L 3.5-10.5 RED BLOOD CELL COUNT (BEAKER) (test mcqf=729) 4.74 M/ L 3.93-5.22 HEMOGLOBIN (BEAKER) (test tcwa=759) 13.4 GM/DL 11.2-15.7 HEMATOCRIT (BEAKER) (test dzgo=458) 42.2 % 34.1-44.9 MEAN CORPUSCULAR VOLUME (BEAKER) (test rmcd=205) 89.0 fL 79.4-94.8 MEAN CORPUSCULAR HEMOGLOBIN (BEAKER) (test ilfd=383) 28.3 pg 25.6-32.2 MEAN CORPUSCULAR HEMOGLOBIN CONC (BEAKER) (test pnbd=219) 31.8 GM/DL 32.2-35.5 RED CELL DISTRIBUTION WIDTH (BEAKER) (test xclp=029) 14.2 % 11.7-14.4 PLATELET COUNT (BEAKER) (test accf=133) 199 K/CU MM 150-450 MEAN PLATELET VOLUME (BEAKER) (test bulk=968) 9.8 fL 9.4-12.3 NUCLEATED RED BLOOD CELLS (BEAKER) (test jyho=496) 0 /100 WBC 0-0 NEUTROPHILS RELATIVE PERCENT (BEAKER) (test yajq=744) 71 % LYMPHOCYTES RELATIVE PERCENT (BEAKER) (test svda=942) 24 % MONOCYTES RELATIVE PERCENT (BEAKER) (test bjxj=293) 4 % EOSINOPHILS RELATIVE PERCENT (BEAKER) (test lozb=899) 1 % BASOPHILS RELATIVE PERCENT (BEAKER) (test jhoh=048) 0 % NEUTROPHILS ABSOLUTE COUNT (BEAKER) (test dzsy=078) 4.21 K/ L 1.56-6.13 LYMPHOCYTES ABSOLUTE COUNT (BEAKER) (test ylji=599) 1.42 K/ L 1.18-3.74 MONOCYTES ABSOLUTE COUNT (BEAKER) (test tkqc=196) 0.23 K/ L 0.24-0.36 EOSINOPHILS ABSOLUTE COUNT (BEAKER) (test vbca=928) 0.04 K/ L 0.04-0.36 BASOPHILS ABSOLUTE COUNT (BEAKER) (test dmbv=989) 0.01 K/ L 0.01-0.08 IMMATURE GRANULOCYTES-RELATIVE PERCENT (BEAKER) (test mjbt=7355) 0 % 0-1 LUNG,[id number] 15:27:00 RUN DATE: 06/27/18 [facility] PAGE 1 RUN TIME: 1527 Specimen Inqui ry RUN USER: INTERFACE PATIENT: CÉSAR ANGEL ACCT #: [id number] LOC: YUSUF U #: [id number] AGE/SX: 47/F ROOM: RE06/22/18REG DR: Christo Mckeon MD : 72 BED: DIS: STATUS: [facility] TLOC: SPEC #: [id number] RECD: 06/22/18 STATUS: RADHA REQ #: [id number] JUAN DIEGO: 06/22/18- SUBM DR: Christo Mckeon MD ENTERED: 06/22/18 SP TYPE: LUNG BX OTHR DR: Hammad Castillo MD TUMOR REGISTRYORDERED: GROSS [place]: [place] [address] [place] [address] TUMOR REGISTRY Christo Mckeon MD [address], [place] [address] MARKERS: INTRADEPA RTMENTAL CONSULT, MALIGNANCY PROCEDURES: GROSS (06/27/18-1512) TISSUES: LUNG, NOS - BX, RINSE, 9 SLIDES CLINICAL HISTORY COLLECTION DATE: RUL LUNG NODULE, 1.7 CM COMMENT The biopsy section sh ows predominantly benign lung parenchyma with delicate alveolar septae. A smal l amount of unremarkable hyaline cartilage is present. At the tip of the core biopsy there is an aggregate of cells with small, round, hyperchromatic nuclei. The cells have indistinct cytoplasmic borders with little cytoplasm. Mitotic f igures are not identified. Similar cells are seen in aggregates in the aspirat e smears. Paraffin embedded tissue was submitted for immunoperoxidase stains a nd the slides are reviewed at [facility]. The cells in question are sh own to be strongly and diffusely positive for Synaptophysin with patchy strong positivity for chromogranin. Strongly diffuse positivity for TTF-1 is noted in the cells. Pancytokeratin is positive. The Ki-67 stain shows focal reactivity corresponding to an estimated activity rate of approximately 2-3%. The histologic features, in correlation with the immunoperoxidase staining pattern, are CONTINUED ON NEXT PAGE RUN DATE: 06/27/18 [facility] P AGE 3 RUN TIME: 1527 Specimen Inquiry RUN USER: INTERFACE SPEC #: [id number] PATIENT: CÉSAR ANGEL #[id number] (Continued) COMMENT (Cont inued) considered diagnostic of typical carcinoid of pulmonary origin. Clinic al correlation is necessary. The findings based on the histologic features (weinstein spected carcinoid tumor) were originally discussed with Dr. Craven 06/24/2018. 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 Received in formalin in a conta iner labeled with the patient's name and identified as "right lung bx", are ve ry thin needle biopsies of howard tissue with an aggregate length of approximatel y 1.5 cm and diameters of less than 0.1 cm. A small amount of blue ink is bg lied to the tissue and it is submitted for histologic evaluation. GROSS PERFORMED AT [facility] [address] [place] [address] (p)[phone] MICROSCOPIC MICROSCOPIC PER FORMED AT [facility] All of the stains, including any controls per formed, stain appropriately. [facility] [address] [place] [address] 887284 (p)[phone] PERFORMING SITE Diagnosis perfor med at: [facility], [address] [address] CONTINUED ON NEXT PAGE RUN DATE: 06/27/18 [facility] PAGE 3 RUN TIME: 1527 Specimen I nquiry RUN USER: INTERFACE SPEC #: [id number] PATIENT: MARYAM ANGEL SLIME #[id number] (Continued) PERFORMING SITE (Continued) [phone] Signed SIGNATURE ON FILE Lalo Kevin 06/27/18 1527 END OF REPORT - XR CHEST 1 [id number] 17:06:00 FAX: Paul Santiago MD [phone] [place]: B St: ELIDA FAX: Emir Dawkins DO Name: CÉSAR ANGEL [facility] : 1970 Age/S: 47/F Vikram Ward Unit #: [id number] Loc: MARYAN [place] [address] Phys: Emir Dawkins DO Acct: [id number] Dis Date: Status: REG ER PHONE #: [phone] Exam Date: 06/26/2018 1702 FAX #: [phone] Reason: CHEST PAIN EXAMS: CPT CODE: [id number] XR CHEST 1 V 70714 REASON FOR EXAM: CHEST PAIN EXAM ORDER DATE: 06/26/2018 4:41 PM Ordering MKeri: Emir Dawkins DO PROCEDURE: - XR CHEST 1 V COMPARISON: 06/22/2018 F INDINGS: Portable AP frontal view of the chest obtained at 5:00 PM shows the heart size is within normal limits. Pulmonary vasculatures are unremar kable. IMPRESSION: Stable appearance of the right lower lobe lane ng mass measuring 2.5 cm. at 1706 Reported and signed by: Ari miller M.D. CC: Paul Castillo MD; Emir Dawkins DO Technologist: ARACELI GALE) Tr nscrd Date/Time/By: 06/26/2018 (0905) : By: RicardoVTL Orig Print D/T: S: 06/26/2018 (9005) PAGE 1 Ruth d Report BASIC METABOLIC [id number] 17:02:00 * Test Item Value Reference Range Comments SODIUM (test code=NA) 139 mmol/L 136-145 POTASSIUM (test code=K) 3.6 mmol/L 3.5-5.1 CHLORIDE (test code=CL) 105.0 mmol/L 98-107 CARBON DIOXIDE (test code=CO2) 26.0 mmol/L 21-32 ANION GAP (test code=GAP) 11.6 10-20 GLUCOSE (test code=GLU) 88 mg/dL 74-106 BLOOD UREA NITROGEN (test code=BUN) 15 mg/dL 7-18 GLOMERULAR FILTRATION RATE (test code=GFR) > 60 mL/min >=60 Estimated GFR by using Modified MDRD formula.Chronic kidney disease is defined as either kidney damageor GFR <60 mL/min/1.73 m2 for >3 months. CREATININE (test code=CREAT) 0.90 mg/dL 0.55-1.02 Note change in reference range due to change in reagent. BUN/CREATININE RATIO (test code=BUN/CREA) 17.2 10-20 CALCIUM (test code=CA) 9.2 mg/dL 8.5-10.1 [id number] 17:02:00* Test Item Value Reference Range Comments TROPONIN-I (test code=TROPI) <0.015 ng/mL 0-0.045 CBC W/O [id number] 16:47:00* Test Item Value Reference Range Comments WHITE BLOOD CELL (test code=WBC) K/mm3 4.5-12.5 RED BLOOD CELL (test code=RBC) mill/mm3 3.7-5.2 HEMOGLOBIN (test code=HGB) 13.5 gram/dL 11.5-15.5 HEMATOCRIT (test code=HCT) 43.6 % 36.0-46.0 MEAN CELL VOLUME (test code=MCV) fL 80-98 MEAN CELL HGB (test code=MCH) picogram 27.0-33.0 MEAN CELL HGB CONCETRATION (test code=MCHC) gram/dL 33.0-36.0 RED CELL DISTRIBUTION WIDTH (test code=RDW) % 11.6-16.2 PLATELET COUNT (test code=PLT) K/mm3 150-450 MEAN PLATELET VOLUME (test code=MPV) fL 6.7-11.0 CBC W/O [id number] 16:47:00* Test Item Value Reference Range Comments WHITE BLOOD CELL (test code=WBC) 8.3 K/mm3 4.5-12.5 RED BLOOD CELL (test code=RBC) 4.88 mill/mm3 3.7-5.2 HEMOGLOBIN (test code=HGB) 13.5 gram/dL 11.5-15.5 HEMATOCRIT (test code=HCT) 43.6 % 36.0-46.0 MEAN CELL VOLUME (test code=MCV) 89.3 fL 80-98 MEAN CELL HGB (test code=MCH) 27.7 picogram 27.0-33.0 MEAN CELL HGB CONCETRATION (test code=MCHC) 31.0 gram/dL 33.0-36.0 RED CELL DISTRIBUTION WIDTH (test code=RDW) 14.1 % 11.6-16.2 PLATELET COUNT (test code=PLT) 258 K/mm3 150-450 MEAN PLATELET VOLUME (test code=MPV) 9.7 fL 6.7-11.0 - CT GUID [facility] [id number] 17:13:00 Name: CÉSAR ANGEL [facility] : 1970 Age/S: 47 / F [address] [facility] Unit #: [id number] Loc: MARYAN [place] [address] Phys: Christo Mckeon MD Acct: [id number] Dis Date: Status: [facility] PHONE #: [phone] Exam Date: 06/22/2018 1006 FAX #: [phone] Reason: BIOPSY EXAMS: CPT CODE: [id number] [facility] [address] EXAM: CT-guided lung biopsy with conscious sedation; INFORMATION: There is a lobulated, noncalcified nodule in the medial segment of the right middle lobe, measuring 2.2 x 1.9 cm. This has increased in size when compared with a study from October 04, 2014. At that time it measured 1 cm in diameter. TECHNIQUE AND FINDINGS: Conscious sedation start time: 0945 hours; Completion time: 10 00 hours; Under physician supervision 2 mg of Versed and 50 mcg of fentanyl were administered intravenously for conscious sedation. The patient's heart rate, blood pressure and pulse oximetry were continuously monitored by a trained registered nurse. Physician bsik-oe-gmbs sedation time was 15 minutes. Informed consent was obtained and the patient was placed supine on the procedure table. Conscious sedation was initiated as described above and localization scans were obtained. The patient's skin in the right anterior chest region was prepped and draped in the usual sterile fashion. Xylocaine was administered and a 19-gauge guiding cannula was then inserted into the anterior aspect of the target lesion. Correct needle position was confirmed with additional scans. In coaxial fashion fine-needle aspiration biopsy was performed and small tissue cores were retrieved with a 20-gauge core biopsy needle. Tissue material was sent to the pathology lab. Post biopsy scans showed a minimal pneumothorax along the anterior inferior aspect of the right lung. Minimal p arenchymal hemorrhage near the target lesion. IMPRESSION: 1. Successful CT-guided fine-needle aspiration and 20-gauge core biopsy of a slowly growing lobulated lesion in the right middle lobe. 2. Mini mal pneumothorax and minimal parenchymal hemorrhage. Follow-up chest x-r ay ordered. at 2113 Reported and signed by: Christo Mckeon M.D. PAGE 1 Signed Report (CONTINUED) Name: CÉSAR ANGEL [facility] : 1970 Age/S: 47 / F [address] [facility] Unit #: [id number] Loc: [place] [address] Phys: Christo Mckeon MD Acct: [id number] Dis Date: Status: DEP [facility] PHONE #: [phone] Exam Date: 06/22/2018 1006 FAX #: [phone] Reason: BIOPSY EXAMS: CPT CODE: [id number] CT GUID NDL [facility] [address] <Continued> CC: Hammad Castillo MD; Sia Craven MD Technologist:Chastity FlorianRT(R),CT CTDI: DLP: Trnscb Date/Time: 06/24/2018 (171) t.[email or web address] Orig Print D/T: S: 06/24/2018 (9361) CTDI: DLP: PAGE 2 Signed Report - XR CHEST 1 [id number] 13:39:00 FAX: Hammad Santiago MD [phone] [place]: B St: REG FAX: Sia Shelley MD [phone] Name: CÉSAR ANGEL [facility] : 1970 Age/S: 47/F [address] Ward Unit #: [id number] Loc: MARYAN [place] [address] Phys: Christo Mckeon MD Acct: [id number] Dis Date: Status: REG SDC PHONE #: [phone] Exam Date: 06/22/2018 1255 FAX #: [phone] Reason: RML lung nodule; st.p. bx - PTX? EXAMS: CPT CODE: [id number] XR CHEST 1 V 26355 HISTORY: Right middle lobe lung nodule and postbiopsy. COMPARISON: April 09, 2015. No pneumothorax after lung biopsy on the right. Suboptimal inspiration. Dependent changes. No acute infiltrates, effusion or congestion is noted. Cardiomegaly. IMPRESSION: No pneumothorax after right lung biopsy. No acute infiltrates, effusion or congestion. at 0275 Reported and signed by: Abdirashid Gomez M.D. CC: Hammad Castillo MD; Sia Craven MD Technologist: RT YUSUF(R) Trnscrd Date/Time/By: 2018 (6838) : By: [email or web address] Orig Print D/T: S: 06/22/2018 (3486) PAGE 1 Signed Report PROTHROMBIN [id number] 14:08:00* Test Item Value Reference Range Comments PROTHROMBIN TIME PATIENT (test code=PTP) 12.2 seconds 9.0-14.0 INTERNATIONAL NORMAL RATIO (test code=INR) 1.0 0.8-1.2 The therapeutic range for oral anticoagulant therapy formost indications is an international normalized ratio (INR)of between 2.0 and 3.0. The recommended therapeutic INRrange for various clinical situations is listed below: Clinical Situation INR range Pulmonary e mbolism treatment (2.0-3.0)Venous thrombosis treatmentVenous thrombosis prophylaxis (high risk surgery)Prevention of systemic embolism from: Acute myocardial infarction Valvular heart disease Atrial fibrillation Mechanical prosthetic heart valves (2.5-3.5) THROMBOPLASTIN TIME [id number] 14:08:00* Test Item Value Reference Range Comments THROMBOPLASTIN TIME PARTIAL (test code=PTT) 28.5 seconds 25.0-36.5 CBC W/AUTO [id number] 14:02:00* Test Item Value Reference Range Comments WHITE BLOOD CELL (test code=WBC) 11.1 K/mm3 4.5-12.5 RED BLOOD CELL (test code=RBC) 4.83 mill/mm3 3.7-5.2 HEMOGLOBIN (test code=HGB) 13.5 gram/dL 11.5-15.5 HEMATOCRIT (test code=HCT) 42.6 % 36.0-46.0 MEAN CELL VOLUME (test code=MCV) 88.2 fL 80-98 MEAN CELL HGB (test code=MCH) 28.0 picogram 27.0-33.0 MEAN CELL HGB CONCETRATION (test code=MCHC) 31.7 gram/dL 33.0-36.0 RED CELL DISTRIBUTION WIDTH (test code=RDW) 14.4 % 11.6-16.2 RED CELL DISTRIBUTION WIDTH SD (test code=RDW-SD) 46.4 fL 37.0-51.0 PLATELET COUNT (test code=PLT) 232 K/mm3 150-450 MEAN PLATELET VOLUME (test code=MPV) 9.9 fL 6.7-11.0 NEUTROPHIL % (test code=NT%) 82.2 % 39.0-69.0 IMMATURE GRANULOCYTE % (test code=IG%) 0.5 % 0.0-5.0 LYMPHOCYTE % (test code=LY%) 11.3 % 25.0-55.0 MONOCYTE % (test code=MO%) 5.2 % 0.0-10.0 EOSINOPHIL % (test code=EO%) 0.6 % 0.0-5.0 BASOPHIL % (test code=BA%) 0.2 % 0.0-1.0 NUCLEATED RBC % (test code=NRBC%) 0.0 % 0-0 NEUTROPHIL # (test code=NT#) 9.10 K/mm3 1.8-7.7 IMMATURE GRANULOCYTE # (test code=IG#) 0.06 x10 3/uL 0-0.03 LYMPHOCYTE # (test code=LY#) 1.25 K/mm3 1.0-5.0 MONOCYTE # (test code=MO#) 0.58 K/mm3 0-0.8 EOSINOPHIL # (test code=EO#) 0.07 K/mm3 0.0-0.5 BASOPHIL # (test code=BA#) 0.02 K/mm3 0.0-0.2 NUCLEATED RBC # (test code=NRBC#) 0.00 K/mm3 0.0-0.1 MANUAL DIFF REQUIRED (test code=MDIFF) NO CBC W/AUTO [id number] 13:59:00* Test Item Value Reference Range Comments WHITE BLOOD CELL (test code=WBC) K/mm3 4.5-12.5 RED BLOOD CELL (test code=RBC) mill/mm3 3.7-5.2 HEMOGLOBIN (test code=HGB) 13.5 gram/dL 11.5-15.5 HEMATOCRIT (test code=HCT) 42.6 % 36.0-46.0 MEAN CELL VOLUME (test code=MCV) fL 80-98 MEAN CELL HGB (test code=MCH) picogram 27.0-33.0 MEAN CELL HGB CONCETRATION (test code=MCHC) gram/dL 33.0-36.0 RED CELL DISTRIBUTION WIDTH (test code=RDW) % 11.6-16.2 RED CELL DISTRIBUTION WIDTH SD (test code=RDW-SD) fL 37.0-51.0 PLATELET COUNT (test code=PLT) K/mm3 150-450 MEAN PLATELET VOLUME (test code=MPV) fL 6.7-11.0 NEUTROPHIL % (test code=NT%) % 39.0-69.0 IMMATURE GRANULOCYTE % (test code=IG%) % 0.0-5.0 LYMPHOCYTE % (test code=LY%) % 25.0-55.0 MONOCYTE % (test code=MO%) % 0.0-10.0 EOSINOPHIL % (test code=EO%) % 0.0-5.0 BASOPHIL % (test code=BA%) % 0.0-1.0 NEUTROPHIL # (test code=NT#) K/mm3 1.8-7.7 LYMPHOCYTE # (test code=LY#) K/mm3 1.0-5.0 MONOCYTE # (test code=MO#) K/mm3 0-0.8 EOSINOPHIL # (test code=EO#) K/mm3 0.0-0.5 BASOPHIL # (test code=BA#) K/mm3 0.0-0.2 - CT CHEST W/O [id number] 11:04:00 Name: CÉSAR ANGEL [facility] : 1970 Age/S: 47 / F [address] [facility] Unit #: [id number] Loc: [place] [id number] Phys: Sia Craven MD Acct: [id number] Dis Date: Status: REG CLI PHONE #: [phone] Exam Date: 06/17/2018 1021 FAX #: [phone] Reason: SOLITARY PULMONARY EXAMS: CPT CODE: [id number] CT CHEST W/O CONTRAST 48241 HISTORY: Solitary pulmonary nodule. COMPARISON: None available. CT chest without contrast: Automated exposure control. Lobular solid mass within the right paracardiac middle lobe measured 2.5 x 1.9 x 1.7 cm. No other mass or lesions. Biopsy and/or PET scan recommended. No infiltrates, effusion or congestion. No bronchiectasis, honeycombing or fibrosis or endobronchial lesions. Heterogeneous mildly enlarged right thyroid lobe is incompletely included. Esophageal wall is not thickened. No pathologic adenopathy. Normal caliber unopacified aorta and pulmonary arteries. Cardiac silhouette is mildly enlarged without pericardial effusion. Visualized upper abdomen is unremarkable. Subcutaneous tissues and the musculature are normal in appearance. No lytic or blastic lesions are noted within the bony skeleton. DJD. IMPRESSION: Lobular 2.5 x 1.9 x 1 cm mass within the paracardiac right middle lobe. This is indeterminate. Correlate with either biopsy and/or PET scan. No other lesions. No pathologic adenopathy. No infilt rates, effusion or congestion. at 1104 Reported and signed by: Samaria Gomez M.D. CC: Hammad Castillo MD; Sia Craven MD Technologist:Manohar Morin RT(R),(MR),(CT) CTDI: DLP: Trnscb Date/Time: 06/17/2018 (1544) t.[email or web address].[email or web address] Orig Print D/T: S: 06/17/2018 (5154) CTDI: DLP: PAGE 1 Signed Report XR CHEST 2V, [id number] 22:49:59LOCATION: [id number]: 46-year-old female presents with a sensation ossification.COMMENT: After hours service at 10:50 p.m.Frontal and lateral chest radiographs were examined.Mild biventricular cardiac enlargement is present. Mild prominence ofthe central vasculature is noted. The lung periphery is clear. Theskeleton and soft tissues are unremarkable.IMPRESSION:Mild cardiac enlargement and mild central vascular congestion is seen inthis patient's chest. Urinalysis [id number] 22:44:00* Test Item Value Reference Range Comments Color (test code=COLOR) Yellow Yellow,Straw,Pl yellow Clarity (test code=CLAR) Clear Clear Specific [place] (test code=SPGR) 1.020 1.001-1.035 pH (test code=PH) 5.0 5.0-9.0 Ketone (test code=KET) Negative mg/dL Negative Glucose (test code=GLUCUR) Negative mg/dL Negative Protein (test code=PROT) Negative mg/dL Negative Bilirubin (test code=BILI) Negative mg/dL Negative Occult Blood (test code=UDOB) Negative Negative Urobilinogen (test code=UROB) 0.2 mg/dL 0.2-1.0 Nitrite (test code=NIT) Negative Negative Leuk Esterase (test code=LEUK) Small Negative Micros Exam (test code=MEXAM) Indicated Epithelial Cells (test code=EPI) 50+ /LPF 0-30 WBC, Urine (test code=UWBC) 0-5 /HPF 0-5 RBC, Urine (test code=URBC) 3-5 /HPF 0-5 Bacteria (test code=BACT) Few /HPF BHCG, Urine, [id number] 22:36:00* Test Item Value Reference Range Comments Preg Qual [Ur] (test code=HUHCG) Negative Negative
[2018-12-20] MEDS ORDERED: ALBUTEROL/IPRATROPIUM 3 ML NEB NEB ONE (13:00)
--- NOTE | 2018-12-20 13:19 | Diagnostic Imaging Report ---
EXAMINATION: CXR 2 VIEW - HOPD INDICATION: Cough COMPARISON: None FINDINGS: LINES/TUBES:None LUNGS:The lungs are well-inflated. Volume loss of the right lung compatible with provided history of prior right middle lobectomy. No focal consolidation or pulmonary edema. PLEURA:No pleural effusion or pneumothorax. MEDIASTINUM:The heart size is at the upper limits of normal. BONES/SOFT TISSUES:No acute osseous injury. Widening of the right acromioclavicular interval to 12 mm, possibly related to prior surgery or trauma. ABDOMEN:No free air under the diaphragm. IMPRESSION: No focal pneumonia or pulmonary edema. Signed by: Jarad Neil MD on 12/20/2018 1:16 PM
[2018-12-20] MEDS ORDERED: ALBUTEROL SULF 0.083% NEB SOLN 3 ML NEB ONE (13:37)
[2018-12-20] MEDS ORDERED: IPRATROPIUM BROMIDE 0.02% 2.5 ML NEB ONE (13:38)
[2018-12-20] MEDS ORDERED: ALBUTEROL SULF 0.083% NEB SOLN 3 ML NEB NEB STA (13:43)
[2018-12-20] MEDS ORDERED: IPRATROPIUM BROMIDE 0.02% 2.5 ML NEB NEB ONE (13:45)
[2018-12-20 15:09] VITALS: BP 157/84
== END 2018-12-20 15:20 | disposition home or self-care (01) ==
LOC: FSED 11:46
DX: R06.00 Dyspnea, unspecified (principal); C34.90 Malignant neoplasm of unspecified part of unspecified bronchus or lung; J98.01 Acute bronchospasm; J02.9 Acute pharyngitis, unspecified; K21.9 Gastro-esophageal reflux disease without esophagitis; F31.9 Bipolar disorder, unspecified; Z87.891 Personal history of nicotine dependence
CPT/HCPCS: 71046; 80053; 81003; 82553; 83880; 84484; 85025; 93005; 99284